=== PATIENT | female | born 1965 | race Caucasian/White ===

== ENCOUNTER 2021-11-21 18:55 | Inpatient (IN) | payer OTHER ==
[~2021-11-21] VITALS: Ht 170.2 cm; Wt 60.8 kg
--- NOTE | 2021-11-21 19:05 | NUR ---
BIBRA 89 c/o generalized weakness x 2 weeks, no BM for 1 week. Mass/wound to Left breast. Pt A/Ox4. Tolerating R/A well with no SOB. Pt Bedbound. Connected pt To POX and monitor.
[2021-11-21] MEDS ORDERED: IV NS 0.9% 1,000 ML BAG IV ONE (19:30)
--- NOTE | 2021-11-21 20:05 | NUR ---
PT RETURNED TO ER BED [address]
[2021-11-21 20:16] LABS: CALCIUM, SERUM 10.4 mg/dL (8.5-10.1); CREATININE 0.8 mg/dL (0.6-1.3); POTASSIUM 3.7 mmol/L (3.5-5.1)
[2021-11-21 20:19] LABS: BASOPHILS # (AUTO) 0.1 K/uL (0.0-0.2); BASOPHILS % (AUTO) 0.7 % (0.0-2.0); EOSINOPHILS % (AUTO) 1.7 % (0.0-6.0); HEMATOCRIT 32 % (33-45); HEMOGLOBIN 10.5 g/dL (11.5-14.8); LYMPHOCYTES % (AUTO) 21.5 % (20.0-44.0); MEAN CORPUSCULAR HGB CONC 32 g/dl (31.0-36.0); MEAN CORPUSCULAR VOLUME 89 fL (82-100); MONOCYTES # (AUTO) 0.8 K/uL (0.1-1.30); MONOCYTES % (AUTO) 8.9 % (2.0-12.0); NEUTROPHILS # (AUTO) 6.2 K/uL (1.8-8.9); NEUTROPHILS % (AUTO) 67.2 % (43.0-81.0); PLATELET COUNT (AUTO) 240 K/uL (150-450); RED BLOOD CELL COUNT(AUTO) 3.65 MIL/uL (4.0-5.2); WHITE BLOOD COUNT (AUTO) 9.2 K/uL (4.3-11.0)
[2021-11-21 20:22] LABS: BILIRUBIN,TOTAL 0.5 mg/dL (0.2-1.0); TOTAL PROTEIN, SERUM 7.6 g/dL (6.4-8.2)
--- NOTE | 2021-11-21 20:46 | NUR ---
COVID SWAB DONE AND SENT TO LAB
[2021-11-21 20:48] LABS: BILIRUBIN,URINE SMALL (NEGATIVE); COLOR,URINE YELLOW (YELLOW); LEUKOCYTE ESTERASE ,URINE NEGATIVE (NEGATIVE); NITRITE, URINE NEGATIVE (NEGATIVE); PROTEIN,URINE TRACE mg/dl (NEGATIVE); UGLUCOSE NEGATIVE (NEGATIVE); UROBILINOGEN,URINE 0.2 EU/dL (0.2)
[2021-11-21 20:50] LABS: BACTERIA,URINE Rare /HPF (None Seen); RBC,URINE 0-2 /HPF (0-2); SQUAMOUS EPITHELIAL CELL,UR Few /HPF (None Seen)
--- NOTE | 2021-11-21 21:10 | NUR ---
MIMI SIN (FRIEND) EMERGENCY CONTACT [phone]
--- NOTE | 2021-11-21 21:11 | NUR ---
PER DR NARCISA FAM FOR PT NOT HAVE F/C. PT CAN USE BEDPAN WITH ASSISTANCE
--- NOTE | 2021-11-21 21:28 | NUR ---
PANCHO PEREZ DNP AT PT'S BEDSIDE FOR EVAL WITH RN SET ILLUSTRATOR TO ASSESS LEFT BREAST MASS
[2021-11-21] MEDS ORDERED: Z GUARD REMEDY 4 OZ OINT TP PRN (22:00)
[2021-11-21 22:04] LABS: BAND % (MANUAL) 7 % (0.0-5.0); EOSINOPHILS % (MANUAL) 3 % (0-4); LYMPHOCYTES % (MANUAL) 19 % (16-48); MONOCYTES % (MANUAL) 9 % (0-11.0); NEUTROPHILS % (MANUAL) 62 (42-76)
--- NOTE | 2021-11-21 22:29 | NUR ---
BED 117-1
--- NOTE | 2021-11-21 22:39 | NUR ---
REPORT GIVEN TO SILVERIO CANALES RN FOR DILLON
--- NOTE | 2021-11-21 23:01 | NUR ---
PT TRANSFERRED TO [facility] VIA ACLS PROTOCOL. VSS. ALL BELONGINGS WITH PT. PT TOLERATED TRANSFER WELL.
--- NOTE | 2021-11-22 | NUR ---
PATIENT FROM HOME, CAME TO ER DT GENERALIZED WEAKNESS FOR 2 WEEKS PER PATIENT. PATIENT IS A/O X 4, ABLE TO MAKE NEEDS KNOWN. SPEAKS [place]. ON ROON AIR. PATIENT TOLERATING WELL SATTING 96%. IV ACCESS ON LAC G#20 ON SL, PATENT AND FLUSHING WELL. PICTURE OF LT BREAST WOUND TAKEN AND PLACED ON FILE. PATIENT IS NON-AMBULATORY, PUREWICK IN PLACE. PATIENT'S BELONGINGS INVENTORIED. ORIENTED PATIENT TO ROOM, RN, AND STATUS CONTROLLER. SAFETY MEASURES IN PLACE. BED IN LOWEST AND LOCKED POSITION, HEAD OF BED SLIGHTLY ELEVATED, SIDE RAILS UP X2, CALL LIGHT WITHIN REACH, WILL CONTINUE TO MONITOR.
--- NOTE | 2021-11-22 00:12 | NUR ---
V/S: BP 147/84, HR 99, TEMP 98.0, O2SAT 96% ON RA.
[2021-11-22] MEDS: MINERAL OIL 133 ML (PYXIS) 1 EA ENEMA RC PRN (02:24)
[2021-11-22] MEDS: IV NS 0.9% 1,000 ML IV PRN ×2 (03:15→18:19)
[2021-11-22 04:00] VITALS: BP 147/84
[2021-11-22 06:57] LABS: BASOPHILS # (AUTO) 0.1 K/uL (0.0-0.2); BASOPHILS % (AUTO) 1.1 % (0.0-2.0); EOSINOPHILS % (AUTO) 1.7 % (0.0-6.0); HEMATOCRIT 29 % (33-45); HEMOGLOBIN 9.4 g/dL (11.5-14.8); LYMPHOCYTES # (AUTO) 1.4 K/uL (0.8-4.8); LYMPHOCYTES % (AUTO) 19.7 % (20.0-44.0); MEAN CORPUSCULAR HGB CONC 32 g/dl (31.0-36.0); MEAN CORPUSCULAR VOLUME 89 fL (82-100); MONOCYTES # (AUTO) 0.7 K/uL (0.1-1.30); MONOCYTES % (AUTO) 9.6 % (2.0-12.0); NEUTROPHILS # (AUTO) 4.8 K/uL (1.8-8.9); NEUTROPHILS % (AUTO) 67.9 % (43.0-81.0); PLATELET COUNT (AUTO) 177 K/uL (150-450); RED BLOOD CELL COUNT(AUTO) 3.28 MIL/uL (4.0-5.2); WHITE BLOOD COUNT (AUTO) 7.1 K/uL (4.3-11.0)
[2021-11-22 07:08] LABS: CALCIUM, SERUM 9.7 mg/dL (8.5-10.1); CREATININE 0.7 mg/dL (0.6-1.3); MAGNESIUM 1.7 mg/dL (1.8-2.4); PHOSPHORUS 3.6 mg/dL (2.5-4.9)
--- NOTE | 2021-11-22 07:10 | NUR ---
RN NOTE RECEIVE PATIENT IN BED RESTING ALERT ORIENTED X4 VERBALLY RESPONSIVE ON ROOM AIR O2:94% IV SITE IS ON LEFT AC INTACT PATENT,IN CONTIENT BOWEL/BLADDER,SAFETY MEASURE IMPLEMENT BED IN LOW POSITON AND LOCKED,CALL LIGHT WITHIN REACH CONTINUE TO MONITOR
[2021-11-22 07:27] LABS: THYROID STIMULATING HORMONE 0.89 uIU/mL (0.358-3.74)
[2021-11-22 07:28] LABS: POTASSIUM 2.5 mmol/L (3.5-5.1)
--- NOTE | 2021-11-22 07:40 | NUR ---
PATIENT ASLEEP IN BED. A/O X 4, ABLE TO MAKE NEEDS KNOWN. ON ROON AIR. PATIENT TOLERATING WELL WITH AN O2 SAT OF 96%. IV ACCESS ON LAC G#20 INFUSING 0.9 NS AT 75ML/HR. PATIENT IS NON-AMBULATORY, PUREWICK IN PLACE. SAFETY MEASURES MAINTAINED. BED IN LOWEST AND LOCKED POSITION, HEAD OF BED SLIGHTLY ELEVATED, SIDE RAILS UP X2, CALL LIGHT WITHIN REACH, WILL ENDORSE TO NEXT NURSE ON DUTY FOR CONTINUITY OF CARE.
[2021-11-22] MEDS: PANTOPRAZOLE 40 MG TABLET.DR PO SCH (07:44)
[2021-11-22 08:00] VITALS: BP 153/78
[2021-11-22] MEDS ORDERED: POTASSIUM CHLORIDE 20 MEQ TAB.PRT.SR PO ONE ×3 (08:00→16:00)
[2021-11-22] MEDS: POLYETHYLENE GLYCOL 3350 17 GM POWD.PACK PO SCH (08:06)
[2021-11-22] MEDS: Magnesium 1GM/D5W 100ML PREMIX 100 ML IV SCH ×2 (08:06→09:16)
--- NOTE | 2021-11-22 09:37 | NUR ---
WOUND CARE CONSULT: PT PRESENTS WITH LEFT BREAST OPEN LESION, PRESENT ON ADMISSION. DR SNIDER CALLED FOR SURGICAL CONSULT. DISCUSSED SKIN PROTECTION WITH NURSING STAFF. IN AGREEMENT WITH PLAN OF CARE.
[2021-11-22] MEDS ORDERED: IBUP-1957 PO (09:44)
[2021-11-22] MEDS ORDERED: TRAM50TA2 PO (09:44)
[2021-11-22 12:00] VITALS: BP 158/88
--- NOTE | 2021-11-22 13:10 | NUR ---
13:10 attempted for US-Breast , RN and students at bedside cleaning the PT up. Per Ap there is a stat MRI, PT will be taken to MRI right after been cleaned up.
[2021-11-22 16:00] VITALS: BP 154/80
[2021-11-22] MEDS: CARISOPRODOL 350 MG TABLET PO PRN (18:04)
[2021-11-22 18:06] LABS: THYROID STIMULATING HORMONE 0.78 uIU/mL (0.358-3.74)
--- NOTE | 2021-11-22 19:17 | NUR ---
RN NOTE PATIENT REMAINS ON ALERT ORIENTED X4 ON ROM AIR, NO SOB NOT ACUTE DISTRESS NOTED ALL DUE MEDS GIVEN MD ORDERED,MRI DONE, CT DONE, KEPT CALL LIGHT WITHIN REACH ALL NEEDS MET ENDORSE NEXT COMING SHIFT FOR CONTINUATION OF CARE.
--- NOTE | 2021-11-22 19:30 | NUR ---
PATIENT AWAKE IN BED. A/O X 4, ABLE TO MAKE NEEDS KNOWN. ON ROON AIR. PATIENT TOLERATING WELL WITH AN O2 SAT OF 96%. IV ACCESS ON LAC G#20 INFUSING 0.9 NS AT 75ML/HR. PATIENT IS NON-AMBULATORY, PUREWICK IN PLACE. SAFETY MEASURES MAINTAINED. BED IN LOWEST AND LOCKED POSITION, HEAD OF BED SLIGHTLY ELEVATED, SIDE RAILS UP X2, CALL LIGHT WITHIN REACH, WILL CONTINUE PLAN OF CARE.
[2021-11-22 20:00] VITALS: BP 140/77
[2021-11-22] MEDS: TEMAZEPAM 15 MG CAPSULE PO PRN (22:18)
[2021-11-22] MEDS: ONDANSETRON HCL/PF 4 MG/2 ML VIAL IVP PRN (23:18)
[2021-11-22] MEDS: MORPHINE SULFATE INJ 2 MG/ML DISP.SYRIN IV PRN (23:18)
[2021-11-23] VITALS: BP 144/83
[2021-11-23] MEDS: MORPHINE SULFATE INJ 2 MG/ML DISP.SYRIN IV PRN (03:42)
[2021-11-23 04:00] VITALS: BP 130/73
[2021-11-23] MEDS: ONDANSETRON HCL/PF 4 MG/2 ML VIAL IVP PRN (06:04)
--- NOTE | 2021-11-23 06:52 | NUR ---
PATIENT ASLEEP IN BED. A/O X 4, ABLE TO MAKE NEEDS KNOWN. ON ROON AIR. PATIENT TOLERATING WELL WITH AN O2 SAT OF 96%. IV ACCESS ON LAC G#[address] ML REQUESTED. PATIENT IS NON-AMBULATORY, PUREWICK IN PLACE. DUE MEDS AND PRN MEDS GIVEN ORDERED AND NEEDED. SAFETY MEASURES MAINTAINED. BED IN LOWEST AND LOCKED POSITION, HEAD OF BED SLIGHTLY ELEVATED, SIDE RAILS UP X2, CALL LIGHT WITHIN REACH, WILL ENDORSE TO NEXT NURSE ON DUTY FOR CONTINUITY OF CARE.
[2021-11-23 07:02] LABS: CALCIUM, SERUM 9.5 mg/dL (8.5-10.1); CREATININE 0.6 mg/dL (0.6-1.3); POTASSIUM 3.1 mmol/L (3.5-5.1)
[2021-11-23 07:07] LABS: IMMUNOGLOBULIN A, SERUM 96 mg/dL (87-352); IMMUNOGLOBULIN G, SERUM 655 mg/dL (586-1602); IMMUNOGLOBULIN M, SERUM 71 mg/dL (26-217)
--- NOTE | 2021-11-23 07:10 | NUR ---
RN NOTE RECEIVED PATIENT IN BED RESTING ALERT ORIENTED X4 VERBALLY RESPONSIVE ON ROOM AIR, O2;94% IV SITE IS ON LEFT AC NOT WORKING,PT IS NPO FOR CT ABDOMEN WITH CONTRAST,AND BIOPSY LEFT BREAST,INCONTINENT BOWEL/BLADDER.SAFETY MEASURE IMPLEMENT BED IN LOW POSITON AND LOCKED,CALL LIGHT WITHIN REACH CONTINUE TO MONITOR.
[2021-11-23] MEDS: PANTOPRAZOLE 40 MG TABLET.DR PO SCH (07:38)
[2021-11-23 08:00] VITALS: BP 133/76
[2021-11-23] MEDS ORDERED: GADOTERATE MEGLUMINE 10 MMOL/20 ML VIAL IV ONE (08:28)
[2021-11-23] MEDS ORDERED: IOHEXOL-300 100 ML VIAL IV ONE (09:07)
[2021-11-23] MEDS ORDERED: IV NS 0.9% 250 ML IV ONE (09:07)
[2021-11-23] MEDS ORDERED: CT SWABBABLE VALVE TRANS SET 1 EA INFUS.SET MC ONE (09:07)
[2021-11-23] MEDS: POLYETHYLENE GLYCOL 3350 17 GM POWD.PACK PO SCH (09:44)
[2021-11-23] MEDS: POTASSIUM CL. PREMIX PERIPHER. 50 ML IV SCH ×4 (09:50→13:30)
--- NOTE | 2021-11-23 10:00 | NUR ---
RN NOTE START A NEW IV LINE ON LEFT FOREARM #22 G WITH GOOD BLOOD RETRUDING NO INFILTRATION,INTACT CONTINUE TO MONITOR.
[2021-11-23 10:07] LABS: *SPE A/G RATIO 0.8 (0.7-1.7); *SPE ALPHA-1-GLOBULIN 0.4 g/dL (0.0-0.4); *SPE ALPHA-2-GLOBULIN 1.3 g/dL (0.4-1.0); *SPE M-SPIKE Not Observed g/dL (Not Observed); CANCER AG, 125 26.7 U/mL (0.0-38.1)
[2021-11-23] MEDS ORDERED: SILVER NITRATE APPLICATOR 1 EA BOX TP STA (11:33)
[2021-11-23] MEDS ORDERED: LIDOCAINE 1%-EPI 1:100,000 20 ML VIAL TP STA (11:33)
[2021-11-23 12:00] VITALS: BP 132/73
[2021-11-23] MEDS: CARISOPRODOL 350 MG TABLET PO PRN (13:31)
[2021-11-23 16:00] VITALS: BP 125/80
[2021-11-23] MEDS: GABAPENTIN 100 MG CAPSULE PO SCH (18:03)
--- NOTE | 2021-11-23 18:36 | NUR ---
RN NOTE PATIENT REMAINS ALERT ORIETNED X4 VERBALLY RESPONSIVE ON ROOM AIR O2;94% ,NO SOB NOT ACUTE DISTRESS NOTED,CT OF ABDOMEN WITH CONTRAST DONE,BIOPSY OF LEFT BREAST DONE,ALL DUE MEDS GIVEN MD ORDERED KEPT CLEAN AND DRY ALL THE TIME,IV SITE IS ON LEFT FOREARM INTACT PATENT,KEPT HEAD OF THE BED ELEVATED,KEPT CALL LIGHT WITHIN REACH CONTINUE TO MONITOR.
--- NOTE | 2021-11-23 18:43 | NUR ---
RN NOTE WILL ENDORSE NEXT COMING SHIFT FOR CONTINUATION OF CARE.
--- NOTE | 2021-11-23 19:46 | NUR ---
RN OPENING NOTES: RECEIVED PATIENT IN BED AWAKE, ALERT/ ORIENTED X4 VERBALLY RESPONSIVE. ON ROOM AIR AND PT TOLERATED WELL. IV ACCESS ON RFA#22G INTACT AND PATENT. NO S/S OF INFILTRATIONS. NO C/O PAIN OR DISCOMFORT. NO ACUTE DISTRESS. INCONTINENT ON BOWEL/BLADDER. PT HAS PURE WICK WHICH DRAINING WELL. ALL SAFETY MEASURES IN PLACE. BED IN LOWEST POSITION AND LOCKED. PLACE CALL LIGHT WITHIN REACH. WILL CONTINUE TO MONITOR.
[2021-11-23 20:00] VITALS: BP 128/76
[2021-11-23] MEDS: MORPHINE SULFATE IR 15 MG TABLET PO PRN (20:38)
--- NOTE | 2021-11-23 20:52 | NUR ---
RN NOTES: PT C/O SEVERE PAIN ON BOTH LOWER LEG, MORPHINE IR 15 MG TAB GIVEN AND PT TOLERATED WELL. WILL CONTINUE TO MONITOR
[2021-11-24] VITALS: BP 111/79
[2021-11-24 04:00] VITALS: BP 122/72
[2021-11-24 06:13] LABS: CALCIUM, SERUM 9.8 mg/dL (8.5-10.1); CREATININE 0.7 mg/dL (0.6-1.3); POTASSIUM 3.6 mmol/L (3.5-5.1)
--- NOTE | 2021-11-24 06:47 | NUR ---
RN CLOSING NOTES: PATIENT IN BED AWAKE, ALERT/ ORIENTED X4 VERBALLY RESPONSIVE. ON ROOM AIR AND PT TOLERATED WELL. O2 SAT 94%. IV ACCESS ON LFA#22G INTACT AND PATENT. NO S/S OF INFILTRATIONS. NO C/O PAIN OR DISCOMFORT. NO ACUTE DISTRESS. INCONTINENT ON BOWEL/BLADDER. PT HAS PURE WICK WHICH DRAINING WELL. 1300 OUTPUT. COOPERATIVE WITH CARE. PRN MED GIVEN ORDERED. ALL SAFETY MEASURES IN PLACE. BED IN LOWEST POSITION AND LOCKED. PLACE CALL LIGHT WITHIN REACH. WILL ENDORSE TO MORNING SHIFT NURSE.
--- NOTE | 2021-11-24 07:25 | NUR ---
RN OPENING NOTE RECEIVED PATIENT IN BED AWAKE, ALERT/ ORIENTED X4 VERBALLY RESPONSIVE. ABLE TO MAKE NEEDS KNOWN.PATIENT ON ROOM AIR TOLERATING WELL ABOVE 97%. IV ACCESS ON LFA#22G INTACT AND PATENT,FLUSHING WELL. NO SIGNS OR SYMPTOMS OF INFILTRATION. NO PAIN OR DISCOMFORT. PATIENT HAS WEAKNESS ON BILATERAL LOWER EXTREMITIES. INCONTINENT ON BOWEL/BLADDER. PT HAS PURE WICK WHICH DRAINING WELL YELLOW COLOR OUTPUT. ALL SAFETY MEASURES IN PLACE.BED IN LOWEST POSITION AND LOCKED. CALL LIGHT WITHIN REACH. BEDSIDE TABLE NEXT TO PATIENT. SIDE RAILS UP X2.BED ALARM ON
[2021-11-24 08:00] VITALS: BP 123/76
[2021-11-24] MEDS: PANTOPRAZOLE 40 MG TABLET.DR PO SCH (08:40)
[2021-11-24] MEDS: GABAPENTIN 100 MG CAPSULE PO SCH ×2 (08:40→16:36)
[2021-11-24] MEDS: POLYETHYLENE GLYCOL 3350 17 GM POWD.PACK PO SCH (09:00)
[2021-11-24 12:00] VITALS: BP 124/77
--- NOTE | 2021-11-24 12:30 | NUR ---
RN NOTE EDUCATED PATIENT ON THE RISKS AND BENEFITS OF NEUORONTIN/GABAPENTIN. AGREED TO TAKE IT.
[2021-11-24 16:00] VITALS: BP 115/78
[2021-11-24 20:00] VITALS: BP 140/84
--- NOTE | 2021-11-24 20:00 | NUR ---
SHIRT HEMMER OPENING NOTE RECEIVED PT IN BED AWAKE, ALERT/ORIENTED X4 BREATHING EVEN AND UNLABORED.V/S STABLE AFEBRILE ON TELE MONITOR HR 93 SR ON THE MONITOR. ON ROOM AIR . O2 SAT 96%. IV ACCESS ON LFA#22G INTACT AND PATENT. NO S/S OF INFILTRATIONS. NO C/O PAIN OR DISCOMFORT. ABLE TO MAKE NEEDS KNOWN ALL DUE MEDS GIVEN ORDERED NO ASE NOTED . ALL SAFETY MEASURES IN PLACE. SIDE RAILS UP X2, BED IN LOWEST POSITION AND LOCKED. PLACE CALL LIGHT WITH IN REACH. WILL CONTINUE TO MONITOR PTS.
--- NOTE | 2021-11-24 20:00 | NUR ---
RN CLOSING NOTE PATIENT IN BED AWAKE, ALERT/ ORIENTED X4 .VERBALLY RESPONSIVE. ABLE TO MAKE NEEDS KNOWN. ALL NEEDS MET.ROOM AIR TOLERATING WELL ABOVE 97%. IV ACCESS ON LFA#22G INTACT AND PATENT,FLUSHING WELL. NO SIGNS OR SYMPTOMS OF INFILTRATION. NO PAIN OR DISCOMFORT. PATIENT HAS WEAKNESS ON BILATERAL LOWER EXTREMITIES. INCONTINENT ON BOWEL/BLADDER. PT HAS PURE WICK WHICH DRAINING WELL YELLOW COLOR OUTPUT. ALL SAFETY MEASURES IN PLACE.BED IN LOWEST POSITION AND LOCKED. CALL LIGHT WITHIN REACH. BEDSIDE TABLE NEXT TO PATIENT. SIDE RAILS UP X2.BED ALARM ON
[2021-11-24] MEDS: MORPHINE SULFATE IR 15 MG TABLET PO PRN (20:52)
[2021-11-25] VITALS: BP 128/75
[2021-11-25 04:00] VITALS: BP 135/86
--- NOTE | 2021-11-25 05:50 | NUR ---
television repairer closing note Pts remain in bed awake remains on r/a sating 96% no sob no distress noted v/s stable afebrile will endorse pts to day shift rn for continuity of care.
--- NOTE | 2021-11-25 07:50 | NUR ---
RN OPENING NOTE RECEIVED PATIENT IN BED AWAKE, ALERT/ ORIENTED X4 VERBALLY RESPONSIVE. ABLE TO MAKE NEEDS KNOWN.PATIENT ON ROOM AIR TOLERATING WELL ABOVE 97%. IV ACCESS ON LFA#22G INTACT AND PATENT,FLUSHING WELL. NO SIGNS OR SYMPTOMS OF INFILTRATION. NO PAIN OR DISCOMFORT. PATIENT HAS WEAKNESS ON BILATERAL LOWER EXTREMITIES. INCONTINENT ON BOWEL/BLADDER. PT HAS PURE WICK DRAINING YELLOW COLOR OUTPUT. ALL SAFETY MEASURES IN PLACE.BED IN LOWEST POSITION AND LOCKED. CALL LIGHT WITHIN REACH. BEDSIDE TABLE NEXT TO PATIENT. SIDE RAILS UP X2.BED ALARM ON
[2021-11-25 08:00] VITALS: BP 126/76
[2021-11-25] MEDS: POLYETHYLENE GLYCOL 3350 17 GM POWD.PACK PO SCH (08:08)
[2021-11-25] MEDS: CARISOPRODOL 350 MG TABLET PO PRN ×2 (08:08→17:15)
[2021-11-25] MEDS: PANTOPRAZOLE 40 MG TABLET.DR PO SCH (08:08)
[2021-11-25] MEDS: GABAPENTIN 100 MG CAPSULE PO SCH ×2 (09:00→17:00)
--- NOTE | 2021-11-25 10:43 | NUR ---
rn note patient refused Neurontin said she is not having nerve pain, gave Soma. Soma helped relieve back/leg pain
[2021-11-25] MEDS ORDERED: PAMIDRONATE 90 MG in IV NS 0.9% 500 ML IV ONE (11:00)
[2021-11-25 12:00] VITALS: BP 148/88
[2021-11-25] MEDS ORDERED: MINERAL OIL 133 ML (PYXIS) 1 EA ENEMA RC ONE (15:30)
[2021-11-25 16:00] VITALS: BP 144/89
--- NOTE | 2021-11-25 19:49 | NUR ---
RN CLOSING NOTE PATIENT IN BED AWAKE, ALERT/ ORIENTED X4. ABLE TO MAKE NEEDS KNOWN.ALL NEEDS MET. PATIENT CONSIPTATED.ADMINSTERED ENEMA. PATIENT RELIEF OF PAIN. PATIENT ON ROOM AIR TOLERATING WELL ABOVE 97%. IV ACCESS ON LFA#22G INTACT AND PATENT,FLUSHING WELL. NO SIGNS OR SYMPTOMS OF INFILTRATION. NO PAIN OR DISCOMFORT. PATIENT HAS WEAKNESS ON BILATERAL LOWER EXTREMITIES. INCONTINENT ON BOWEL/BLADDER. PT HAS PURE WICK DRAINING YELLOW COLOR OUTPUT. ALL SAFETY MEASURES IN PLACE.BED IN LOWEST POSITION AND LOCKED. CALL LIGHT WITHIN REACH. BEDSIDE TABLE NEXT TO PATIENT. SIDE RAILS UP X2.BED ALARM ON.ENDORSED TO MANAGER INSURANCE RN
[2021-11-25 20:00] VITALS: BP 159/99
--- NOTE | 2021-11-25 20:00 | NUR ---
PAPER SPOOLER OPENING NOTE RECEIVED PT IN BED AWAKE, ALERT/ORIENTED X4 BREATHING EVEN AND UNLABORED.V/S STABLE AFEBRILE ON TELE MONITOR HR [address] ON THE MONITOR. ON ROOM AIR . O2 SAT 96%. IV ACCESS ON LFA#22G INTACT AND PATENT. NO S/S OF INFILTRATIONS. NO C/O PAIN OR DISCOMFORT. ABLE TO MAKE NEEDS KNOWN ALL DUE MEDS GIVEN ORDERED NO ASE NOTED . ALL SAFETY MEASURES IN PLACE. SIDE RAILS UP X2, BED IN LOWEST POSITION AND LOCKED. PLACE CALL LIGHT WITH IN REACH. WILL CONTINUE TO MONITOR PTS.
[2021-11-25] MEDS: MORPHINE SULFATE IR 15 MG TABLET PO PRN (20:54)
--- NOTE | 2021-11-25 21:11 | NUR ---
rn note notified audio visual collections coordinator delores mendoza that patient is already getting miralax and prefers a stronger stool softener. hebert estrella ordered milk of magnesia 30 cc x 1.
--- NOTE | 2021-11-25 21:20 | NUR ---
rn note patient complaining of pain 8 out of 10 pain scale. administered morphine PRN per medication list
[2021-11-25] MEDS ORDERED: MAGNESIUM HYDROXIDE 30 ML UDC PO ONE (22:00)
--- NOTE | 2021-11-25 22:00 | NUR ---
rn note spoke with patient. patient prefers to be on pain medication less severe than morphine. recommended pain management doctor could see patient tomorrow. endorsed to low heel builder rn
[2021-11-26] VITALS: BP 145/90
[2021-11-26 04:00] VITALS: BP 130/66
[2021-11-26 06:36] LABS: BASOPHILS % (AUTO) 0.5 % (0.0-2.0); EOSINOPHILS % (AUTO) 3.2 % (0.0-6.0); HEMATOCRIT 27 % (33-45); HEMOGLOBIN 8.7 g/dL (11.5-14.8); LYMPHOCYTES # (AUTO) 1.2 K/uL (0.8-4.8); LYMPHOCYTES % (AUTO) 19.4 % (20.0-44.0); MEAN CORPUSCULAR HGB CONC 32 g/dl (31.0-36.0); MEAN CORPUSCULAR VOLUME 89 fL (82-100); MONOCYTES # (AUTO) 0.5 K/uL (0.1-1.30); MONOCYTES % (AUTO) 7.9 % (2.0-12.0); NEUTROPHILS # (AUTO) 4.1 K/uL (1.8-8.9); PLATELET COUNT (AUTO) 153 K/uL (150-450); RED BLOOD CELL COUNT(AUTO) 3.06 MIL/uL (4.0-5.2)
[2021-11-26 06:40] LABS: CALCIUM, SERUM 9.5 mg/dL (8.5-10.1); CREATININE 0.7 mg/dL (0.6-1.3); POTASSIUM 3.9 mmol/L (3.5-5.1)
[2021-11-26 08:00] VITALS: BP 149/84
--- NOTE | 2021-11-26 08:00 | NUR ---
rn notes received patient in the bed room air. no acute respiratory distress, vss, patient was complaining of pain on right arm, and right lower leg. but no pain medication at this time. due medication administered . patient tolerated breakfast well by self, assist turn and reposition q 2hr. call light within to reach. seen patient via hospitalist, and patient was asking to change pain medication. Encouraged to increase fluid intake prevent constipation. call light within to reach. will follow up.
[2021-11-26] MEDS: CARISOPRODOL 350 MG TABLET PO PRN (09:25)
--- NOTE | 2021-11-26 09:25 | NUR ---
RN NOTES ADMINISTERED SOMA [id number] FOR GENERALIZED PAIN BP 149/84,P-104. WILL FOLLOW UP.
[2021-11-26] MEDS: POLYETHYLENE GLYCOL 3350 17 GM POWD.PACK PO SCH (09:26)
[2021-11-26] MEDS: PANTOPRAZOLE 40 MG TABLET.DR PO SCH (09:26)
[2021-11-26] MEDS: GABAPENTIN 100 MG CAPSULE PO SCH ×2 (09:26→17:00)
--- NOTE | 2021-11-26 11:53 | NUR ---
rn notes administered tramadol 100ml po prn for generalized pain per patient request 6/10 per pain scale.
[2021-11-26] MEDS: TRAMADOL HCL 50 MG TABLET PO PRN ×2 (11:54→20:27)
[2021-11-26 12:00] VITALS: BP 158/85
--- NOTE | 2021-11-26 12:40 | NUR ---
rn notes patient has a fever T-100 F, called hospitalist and get new verbal order ibuprofen 400 mg po q 6 hr order taken and carried out.
--- NOTE | 2021-11-26 13:00 | NUR ---
RN NOTES RECHECKED T=99.4F , ASSIST TURN AND REPOSTION Q 2 HR. MEDICATION WERE ADMINISTERED FOR PAIN EFFECTIVE.
[2021-11-26 16:00] VITALS: BP 155/88
--- NOTE | 2021-11-26 17:55 | NUR ---
RN NOTES DRESSING CHANGED ON LEFT BREAST, DUE MEDICATION ADMINISTERED, PM CARE DONE. ASSIST TURN AND REPOSTION. T-99 F, PATIENT REFUSED PAIN MEDICATION AT THIS TIME. CALL LIGHT WITHIN TO REACH, PUREVICK WORKING, OUTPUT WAS 250 ML. CALL LIGHT WITHIN TO REACH. PATIENT EATING DINNER. ENDORSED ONCOMING NURSE DILLON.
--- NOTE | 2021-11-26 19:30 | NUR ---
RN NOTE RECEIVED PATIENT IN BED, AO X 4, IN NO S/SX OF ACUTE DISTRESS AT THIS TIME. SATURATION AT 96% ON ROOM AIR, ST ON THE MONITOR, HR IS 106. IV SITE AT LFA 22G PATENT AND FLUSHING WELL, NO S/S OF INFECTION OR INFILTRATION. SAFETY MEASURES IMPLEMENTED. PATIENT BED ALARM IS ON. HEAD OF BED ELEVATED. BED IS LOCKED, IN LOWEST POSITION AND SIDE RAILS UP. CALL LIGHT WITHIN REACH OF THE PATIENT. WILL CONTINUE TO MONITOR AND REASSESS FOR ANY CHANGES.
[2021-11-26 20:00] VITALS: BP 139/81
[2021-11-26] MEDS: IBUPROFEN 400 MG TABLET PO PRN (22:14)
[2021-11-27] VITALS: BP 130/76
[2021-11-27] MEDS: CARISOPRODOL 350 MG TABLET PO PRN (03:52)
[2021-11-27 04:00] VITALS: BP 127/87
[2021-11-27] MEDS: TRAMADOL HCL 50 MG TABLET PO PRN ×2 (06:10→21:11)
--- NOTE | 2021-11-27 07:30 | NUR ---
RN OPENING NOTE PT OBSERVED IN BED SITTING UP. PT IS ON RA TOLERATING WELL WITH NO SIGNS OF DISTRESS OR LABORED BREATHING. PT IS A/OX4 TELE MONITORED SR- ST AT THIS TIME 80S - 100S. PT HAS DIAPER AND USES PUREWICK. PT IS ON REGULAR DIET IV ACCESS L FA22G. BED IS LOCKED IN LOWEST POSITION X2 BED RAILS UP AND ALL HOSPITAL SAFETY MEASURES ARE IN PLACE. WILL CONTINUE TO MONITOR THIS SHIFT.
[2021-11-27 08:00] VITALS: BP 148/97
[2021-11-27] MEDS: POLYETHYLENE GLYCOL 3350 17 GM POWD.PACK PO SCH (08:43)
[2021-11-27] MEDS: PANTOPRAZOLE 40 MG TABLET.DR PO SCH (08:43)
[2021-11-27] MEDS: GABAPENTIN 100 MG CAPSULE PO SCH ×2 (08:43→16:05)
[2021-11-27 12:00] VITALS: BP 135/79
[2021-11-27 16:00] VITALS: BP 134/71
--- NOTE | 2021-11-27 19:22 | NUR ---
RN CLOSING NOTE PT IS IN BED SITTING UP. PT IS ON RA TOLERATING WELL WITH NO SIGNS OF DISTRESS OR LABORED BREATHING. PT IS A/OX4 TELE MONITORED SR- ST AT THIS TIME 80S - 100S. PT HAS DIAPER AND USES PUREWICK - 400ML. PT IS ON REGULAR DIET IV ACCESS L FA22G. BED IS LOCKED IN LOWEST POSITION X2 BED RAILS UP AND ALL HOSPITAL SAFETY MEASURES ARE IN PLACE. WILL ENDORSE TO LUMITE INJECTOR NURSE FOR DILLON.
[2021-11-27 20:00] VITALS: BP 146/80
[2021-11-28 04:00] VITALS: BP 120/71
[2021-11-28] MEDS: TRAMADOL HCL 50 MG TABLET PO PRN ×3 (04:56→22:17)
--- NOTE | 2021-11-28 06:56 | NUR ---
LIFE SKILLS CONSULTANT CLOSING NOTE PT IN BED, AWAKE AT THIS TIME, A/O X4, AT ROOM AIR WITH OPTIMAL O2 SAT LEVEL, NO SOB/ACUTE DISTRESS NOTED, MS STATUS, DRESSING CHANGED IN LEFT BREAST WOUND, TRAMADOL ADMINISTERED TWICE FOR PAIN LAST NIGHT, OTHERWISE NO SIGNIFICANT CHANGE IN CONDITION DURING THE NIGHT, WITH GOOD URINARY OUTPUT, ALL SAFETY MEASURES IN PLACE, CALL LIGHT WITHIN REACH AT ALL TIMES, WILL ENDORSE CONTINUITY OF CARE TO ONCOMING NURSE.
[2021-11-28 07:32] LABS: BASOPHILS % (AUTO) 0.7 % (0.0-2.0); EOSINOPHILS % (AUTO) 3.4 % (0.0-6.0); HEMATOCRIT 26 % (33-45); HEMOGLOBIN 8.6 g/dL (11.5-14.8); LYMPHOCYTES # (AUTO) 1.2 K/uL (0.8-4.8); LYMPHOCYTES % (AUTO) 25.2 % (20.0-44.0); MEAN CORPUSCULAR HGB CONC 33 g/dl (31.0-36.0); MEAN CORPUSCULAR VOLUME 89 fL (82-100); MONOCYTES # (AUTO) 0.7 K/uL (0.1-1.30); MONOCYTES % (AUTO) 14.5 % (2.0-12.0); NEUTROPHILS # (AUTO) 2.6 K/uL (1.8-8.9); NEUTROPHILS % (AUTO) 56.2 % (43.0-81.0); PLATELET COUNT (AUTO) 147 K/uL (150-450); RED BLOOD CELL COUNT(AUTO) 2.98 MIL/uL (4.0-5.2); WHITE BLOOD COUNT (AUTO) 4.6 K/uL (4.3-11.0)
[2021-11-28 07:47] LABS: ALBUMIN 2.3 g/dL (3.4-5.0); CALCIUM, SERUM 8.4 mg/dL (8.5-10.1); CREATININE 0.8 mg/dL (0.6-1.3); POTASSIUM 4.1 mmol/L (3.5-5.1)
[2021-11-28 08:00] VITALS: BP 109/67
--- NOTE | 2021-11-28 08:00 | NUR ---
RN OPENING NOTE RECEIVED PT IN BED AWAKE, ALERT/ORIENTED X3 AND VERBALLY RESPONSIVE. BREATHING EVEN AND UNLABORED. PTS ON R/A SATING 96% NO SOB NO DISTRESS NOTED . . NO S/S OF INFILTRATIONS. NO C/O PAIN OR DISCOMFORT. WITH PUREEWICK DRAINING WITH YELLOWISH URINE OUTPUT ALL DUE MEDS GIVEN ORDERED NO ASE NOTED .. ALL SAFETY MEASURES IN PLACE. SIDE RAILS UP X2, BED IN LOWEST POSITION AND LOCKED. PLACE CALL LIGHT WITH IN REACH. WILL CONTINUE TO MONITOR PTS..
[2021-11-28] MEDS: POLYETHYLENE GLYCOL 3350 17 GM POWD.PACK PO SCH (08:07)
[2021-11-28] MEDS: PANTOPRAZOLE 40 MG TABLET.DR PO SCH (08:07)
[2021-11-28] MEDS: GABAPENTIN 100 MG CAPSULE PO SCH ×2 (08:07→17:14)
[2021-11-28 08:59] LABS: BAND % (MANUAL) 5 % (0.0-5.0); BASOPHILS % (MANUAL) 0 % (0.0-2.0); EOSINOPHILS % (MANUAL) 2 % (0-4); LYMPHOCYTES % (MANUAL) 24 % (16-48); MONOCYTES % (MANUAL) 16 % (0-11.0); NEUTROPHILS % (MANUAL) 53 (42-76)
--- NOTE | 2021-11-28 09:27 | NUR ---
WOUND CARE CONSULT: PT PRESENTS WITH INTACT BLISTER TO LOWER ABDOMEN. NO ERYTHEMA OR DRAINAGE NOTED. RECOMMENDATIONS MADE FOR SKIN PROTECTION. DISCUSSED WITH NURSING STAFF. PT IS USING PUREWICK DEVICE FOR URINARY INCONTINENCE. MD IN AGREEMENT WITH PLAN OF CARE.
[2021-11-28 14:00] VITALS: BP 120/71
[2021-11-28] MEDS: ANASTROZOLE 1 MG TABLET PO SCH (19:00)
--- NOTE | 2021-11-28 19:42 | NUR ---
RN CLOSING NOTE PT IS IN BED . ON RA TOLERATING WELL WITH NO SIGNS OF DISTRESS OR LABORED BREATHING. PT IS A/OX4 TELE MONITORED SR- ST AT THIS TIME 80S - 100S. PT HAS DIAPER AND USES PUREWICK - 1200ML . PT IS ON REGULAR DIET IV ACCESS L FA22G. BED IS LOCKED IN LOWEST POSITION X2 BED RAILS UP AND ALL HOSPITAL SAFETY MEASURES ARE IN PLACE. WILL ENDORSE TO SENIOR SYSTEMS PROGRAMMER NURSE FOR DILLON.
[2021-11-28 20:00] VITALS: BP 140/79
--- NOTE | 2021-11-28 20:00 | NUR ---
MS RN NOTE PT IN BED SITTING UP. A/O X 4, NO SOB, NO DISTRESS OR DISCOMFORT NOTED. DENIES PAIN. KEPT HER DRY AND CLEAN. ALL NEEDS ATTENDED. VSS. CONTINUE TO MONITOR HIM.
[2021-11-29 04:00] VITALS: BP 113/70
[2021-11-29] MEDS ORDERED: MAGNESIUM HYDROXIDE 30 ML UDC PO PRN (04:30)
--- NOTE | 2021-11-29 06:36 | NUR ---
MS RN NOTE NO CHANGE IN CONDITION. PT IN NO DISTRESS OR DISCOMFORT NOTED. SIDE RAILS UP X 2 AND CALL LIGHT WITHIN REACH. WILL ENDORSE TO DAY SHIFT NURSE FOR CONTINUE TO CARE.
[2021-11-29 07:02] LABS: BASOPHILS % (AUTO) 0.8 % (0.0-2.0); HEMATOCRIT 27 % (33-45); HEMOGLOBIN 8.7 g/dL (11.5-14.8); LYMPHOCYTES # (AUTO) 1.3 K/uL (0.8-4.8); LYMPHOCYTES % (AUTO) 24.2 % (20.0-44.0); MEAN CORPUSCULAR HGB CONC 32 g/dl (31.0-36.0); MEAN CORPUSCULAR VOLUME 89 fL (82-100); MONOCYTES # (AUTO) 0.7 K/uL (0.1-1.30); MONOCYTES % (AUTO) 12.7 % (2.0-12.0); NEUTROPHILS # (AUTO) 3.1 K/uL (1.8-8.9); NEUTROPHILS % (AUTO) 59.3 % (43.0-81.0); PLATELET COUNT (AUTO) 176 K/uL (150-450); RED BLOOD CELL COUNT(AUTO) 3.02 MIL/uL (4.0-5.2); WHITE BLOOD COUNT (AUTO) 5.3 K/uL (4.3-11.0)
[2021-11-29 07:49] LABS: CALCIUM, SERUM 8.3 mg/dL (8.5-10.1); CREATININE 0.6 mg/dL (0.6-1.3); POTASSIUM 4.3 mmol/L (3.5-5.1)
--- NOTE | 2021-11-29 08:00 | NUR ---
MS RN NOTE PT IN BED , alert oriented A/O X 4, NO SOB, NO DISTRESS OR DISCOMFORT NOTED. DENIES PAIN. KEPT HER DRY AND CLEAN. ALL NEEDS ATTENDED. LT FA HL IN PLACE, NO SOB NOTED AT THIS TIME
[2021-11-29] MEDS: ANASTROZOLE 1 MG TABLET PO SCH (08:55)
[2021-11-29] MEDS: TRAMADOL HCL 50 MG TABLET PO PRN ×2 (08:55→16:55)
[2021-11-29] MEDS: GABAPENTIN 100 MG CAPSULE PO SCH ×2 (08:55→16:15)
[2021-11-29] MEDS: POLYETHYLENE GLYCOL 3350 17 GM POWD.PACK PO SCH (08:56)
[2021-11-29] MEDS: PANTOPRAZOLE 40 MG TABLET.DR PO SCH (09:01)
--- NOTE | 2021-11-29 10:01 | NUR ---
MS RN NOTE TRAMADOL PO GIVEN FOR PAIN . TURN REPOSITION ,SEEN BY DR GARVIN
[2021-11-29 11:47] LABS: BAND % (MANUAL) 9 % (0.0-5.0); EOSINOPHILS % (MANUAL) 2 % (0-4); LYMPHOCYTES % (MANUAL) 22 % (16-48); MONOCYTES % (MANUAL) 7 % (0-11.0); NEUTROPHILS % (MANUAL) 60 (42-76)
--- NOTE | 2021-11-29 11:52 | NUR ---
STATION BAGGAGE AGENT NOTE ROUNDS MADE , ALL NEEDS ATTENDED , CALL LIGHT WITHIN REACH, NOT IN DISTRESS
--- NOTE | 2021-11-29 15:37 | NUR ---
REFAXED THE ORDER FOR LUIS CESPEDES TO [facility] @ ,SPOKE WITH JUSTEN @ .
[2021-11-29 16:00] VITALS: BP 122/70
--- NOTE | 2021-11-29 16:51 | NUR ---
ms laure roach will be delivered at 1700 Addendum: 11/29/21 at 1651 by KLEVER ANDRADE RN turn reposing keep clean dry
--- NOTE | 2021-11-29 17:22 | NUR ---
ms rn note tramadol for general,pain give cytotechnologist/cytology supervisor at bedside instructed how to use tls brace
--- NOTE | 2021-11-29 18:30 | NUR ---
MS RN NOTE DR YOST VASCULAR DOCTOR CALLED WITH ORDER TO START NPO AFTER MIDNIGHT, START ON IVF AT 0700 TOMORROW, AND GET CONSENT FOR PORTHA CATH PLACEMENT , ORDER CARRIED OUT
--- NOTE | 2021-11-29 18:57 | NUR ---
MS RN NOTE CONSENT FOR PLACEMENT JOEL CATH OBTAINED
--- NOTE | 2021-11-29 19:45 | NUR ---
RN NOTE PT AWAKE, AOX4. DENIES ANY PAIN OR SOB AT THIS TIME. PT TO BE NPO AFTER MIDNIGHT, VERBALIZES UNDERSTANDING. ALL SAFETY MEASURES IN PLACE PER PROTOCOL. WILL CONTINUE TO MONITOR.
[2021-11-29 20:00] VITALS: BP 112/65
[2021-11-30 04:00] VITALS: BP 124/69
[2021-11-30] MEDS: TRAMADOL HCL 50 MG TABLET PO PRN ×2 (04:42→17:40)
[2021-11-30 06:02] LABS: CALCIUM, SERUM 8.7 mg/dL (8.5-10.1); CREATININE 0.6 mg/dL (0.6-1.3); POTASSIUM 4.2 mmol/L (3.5-5.1)
[2021-11-30 06:38] LABS: BASOPHILS % (AUTO) 0.8 % (0.0-2.0); EOSINOPHILS % (AUTO) 3.5 % (0.0-6.0); HEMATOCRIT 27 % (33-45); HEMOGLOBIN 8.7 g/dL (11.5-14.8); LYMPHOCYTES # (AUTO) 1.6 K/uL (0.8-4.8); LYMPHOCYTES % (AUTO) 27.7 % (20.0-44.0); MEAN CORPUSCULAR HGB CONC 32 g/dl (31.0-36.0); MEAN CORPUSCULAR VOLUME 89 fL (82-100); MONOCYTES # (AUTO) 0.7 K/uL (0.1-1.30); MONOCYTES % (AUTO) 11.6 % (2.0-12.0); NEUTROPHILS # (AUTO) 3.3 K/uL (1.8-8.9); NEUTROPHILS % (AUTO) 56.4 % (43.0-81.0); PLATELET COUNT (AUTO) 207 K/uL (150-450); RED BLOOD CELL COUNT(AUTO) 3.07 MIL/uL (4.0-5.2); WHITE BLOOD COUNT (AUTO) 5.8 K/uL (4.3-11.0)
[2021-11-30] MEDS: IV NS 0.9% 1,000 ML IV PRN (06:40)
[2021-11-30] MEDS: PANTOPRAZOLE 40 MG TABLET.DR PO SCH (07:30)
--- NOTE | 2021-11-30 07:30 | NUR ---
RN OPENING NOTE PATIENT IS IN BED AWAKE, ALERT AND ORIENTED X 4.ON ROOM AIR, BREATHING UNLABORED AND NOT IN ANY FORM OF DISTRESS. NPO OF THIS TIME IN PREPARATION FOR PERMACATH INSERTION. LEFT ANTECUBITAL LINE INTACT AND PATENT INFUSING WITH NS AT 75 ML/HR. ALL HOSPITAL SAFETY PRECAUTIONS IN PLACE. BED IS LOCKED IN LOWEST POSITION, 3 SIDE RAILS UP, CALL LIGHT WITHIN REACH. WILL CONTINUE TO MONITOR THROUGHOUT SHIFT.
--- NOTE | 2021-11-30 07:30 | NUR ---
RN NOTE PT AWAKE, DENIES ANY PAIN AT THIS TIME. TOLERATES ROOM AIR. NEW IV LINE INSERTED ON LAC # 20, GOOD BLOOD RETURN, FLUSHES WELL. OLD IV LINE ON LFA REMOVED, CATHETER INTACT. IVF NS AT 75ML/HR STARTED ORDERED. PT HAS PUREWIC, WITH 550ML URINE OUTPUT. ALL NEEDS ATTENDED. CALL LIGHT WITHIN REACH AT ALL TIMES. ENDORSED TO AM SHIFT NURSE FOR DILLON,. Addendum: 11/30/21 at 0739 by EVE LEDBETTER RN PT SCHEDULED WITH PORTACATH PLACEMENT TODAY. NPO SINCE MIDNIGHT.
[2021-11-30] MEDS: ANASTROZOLE 1 MG TABLET PO SCH (09:00)
[2021-11-30] MEDS: GABAPENTIN 100 MG CAPSULE PO SCH ×2 (09:00→17:40)
[2021-11-30] MEDS: POLYETHYLENE GLYCOL 3350 17 GM POWD.PACK PO SCH (09:00)
[2021-11-30] MEDS ORDERED: LIDOCAINE HCL/PF 1% 30 ML SDV ONE (10:19)
[2021-11-30] MEDS ORDERED: IOHEXOL 0 ML IV ONE (10:19)
[2021-11-30] MEDS ORDERED: SEVOFLURANE 250 ML BOTTLE IH ONE (10:23)
[2021-11-30] MEDS ORDERED: FENTANYL PF 100MCG/2ML AMPUL ONE (12:34)
[2021-11-30 13:43] VITALS: BP 109/66
[2021-11-30] MEDS ORDERED: HYDROMORPHONE 1 MG/1 ML DISP.SYRIN ONE (13:59)
--- NOTE | 2021-11-30 14:38 | NUR ---
RECEIVED FROM OR ,AWAKE,ALERT, VSS,NO ACUTE DISTRESS.
--- NOTE | 2021-11-30 18:57 | NUR ---
RN CLOSING NOTE PATIENT REMAINED STABLE THROUGHOUT SHIFT. ON ROOM AIR, BREATHING UNLABORED AND NOT IN ANY FORM OF DISTRESS. IV LINE IS NOW ON RIGHT WRIST, INTACT AND PATENT. PORTACATH ON LEFT CHEST WALL INTACTA ND COVERED WITH DRY DRESSING. ALL HOSPITAL SAFETY PRECAUTIONS IN PLACE. WILL ENDORSE TO POWER GENERATION TECHNICIAN NURSE.
[2021-11-30 20:00] VITALS: BP 115/70
[2021-11-30 21:11] LABS: BAND % (MANUAL) 4 % (0.0-5.0); EOSINOPHILS % (MANUAL) 1 % (0-4); LYMPHOCYTES % (MANUAL) 26 % (16-48); METAMYELOCYTES % 1 % (0-0); MONOCYTES % (MANUAL) 7 % (0-11.0); NEUTROPHILS % (MANUAL) 61 (42-76)
[2021-11-30] MEDS: ANCEF 1 GM/50 ML D5W IV SCH ×2 (21:44)
[2021-11-30] MEDS: CARISOPRODOL 350 MG TABLET PO PRN (21:50)
[2021-12-01] MEDS: IV NS 0.9% 1,000 ML IV PRN ×2 (03:57→15:30)
[2021-12-01] MEDS: TRAMADOL HCL 50 MG TABLET PO PRN ×3 (03:57→21:15)
[2021-12-01 04:00] VITALS: BP 123/68
[2021-12-01] MEDS: ANCEF 1 GM/50 ML D5W IV SCH ×2 (04:01)
--- NOTE | 2021-12-01 06:55 | NUR ---
RN CLOSING NOTE: AWAKE AND ALERT X4. UNLABORED BREATHING. SATING 97 %. RIGHT UPPER CHEST PORT A CATH WITH CLEAN DRESSING.IV ON RIGHT WRIST IN PLACE PATENT AND NO S/S OF COMPLICATIONS. HOB ELEVATED ON SEMI-FOWLERS POSITION. KEPT CLEAN AND DRY. TURNED AND REPOSITIONED WITH TWO PERSON ASSIST . BODY ALIGNMENT MAINTAINED. KEPT CLEAN AND DRY. NO A/R TO ABX. IVF ORDERED. ALL IV LINES IN PLACE PATENT AND WITH NO COMPLICATIONS. HOB ELEVATED. BILATERAL HALF SIDE RAILS UP X2. BED IN LOWEST POSITION. BED IS LOCKED. BED EXIT ALARM ON. CALL LIGHT IN REACH.
--- NOTE | 2021-12-01 07:20 | NUR ---
RN OPENING NOTE PATIENT IS IN BED AWAKE, ALERT AND ORIENTED X 4.ON ROOM AIR, BREATHING UNLABORED AND NOT IN ANY FORM OF DISTRESS. . LEFT ANTECUBITAL LINE INTACT AND PATENT INFUSING WITH NS AT 75 ML/HR. NOTED WITHRIGHT UUPER CHEST DRESSING COVERING NEW PERMA CATH,NO BLEEDING NOS/S OF INFLAMMATION OR INFECTION NOTED, DENIED PAIN BUT SHE HAS DISCOMFORT WHICH SHE CAN TOLERATE IT. ALL HOSPITAL SAFETY PRECAUTIONS IN PLACE. BED IS LOCKED IN LOWEST POSITION, 3 SIDE RAILS UP, CALL LIGHT WITHIN REACH. WILL CONTINUE TO MONITOR THROUGHOUT SHIFT.
[2021-12-01 07:43] LABS: BASOPHILS % (AUTO) 0.7 % (0.0-2.0); EOSINOPHILS % (AUTO) 3.2 % (0.0-6.0); HEMATOCRIT 27 % (33-45); HEMOGLOBIN 8.7 g/dL (11.5-14.8); LYMPHOCYTES # (AUTO) 1.6 K/uL (0.8-4.8); LYMPHOCYTES % (AUTO) 26.9 % (20.0-44.0); MEAN CORPUSCULAR HGB CONC 32 g/dl (31.0-36.0); MEAN CORPUSCULAR VOLUME 91 fL (82-100); MONOCYTES # (AUTO) 0.7 K/uL (0.1-1.30); MONOCYTES % (AUTO) 11.6 % (2.0-12.0); NEUTROPHILS # (AUTO) 3.4 K/uL (1.8-8.9); NEUTROPHILS % (AUTO) 57.6 % (43.0-81.0); PLATELET COUNT (AUTO) 210 K/uL (150-450); RED BLOOD CELL COUNT(AUTO) 2.97 MIL/uL (4.0-5.2); WHITE BLOOD COUNT (AUTO) 5.9 K/uL (4.3-11.0)
[2021-12-01] MEDS: PANTOPRAZOLE 40 MG TABLET.DR PO SCH (07:46)
[2021-12-01 08:00] VITALS: BP 123/65
[2021-12-01 08:12] LABS: ALBUMIN 2.4 g/dL (3.4-5.0); CALCIUM, SERUM 8.3 mg/dL (8.5-10.1); CREATININE 0.7 mg/dL (0.6-1.3); MAGNESIUM 2.5 mg/dL (1.8-2.4); PHOSPHORUS 2.7 mg/dL (2.5-4.9); POTASSIUM 4.5 mmol/L (3.5-5.1)
[2021-12-01] MEDS: LETROZOLE 2.5 MG TABLET PO SCH (09:05)
[2021-12-01] MEDS: GABAPENTIN 100 MG CAPSULE PO SCH ×2 (09:05→16:36)
[2021-12-01] MEDS: POLYETHYLENE GLYCOL 3350 17 GM POWD.PACK PO SCH (09:06)
[2021-12-01] MEDS ORDERED: LACTULOSE 10 G/15 ML UDC (PYXIS) PO PRN ×2 (13:00→14:00)
[2021-12-01 14:17] LABS: BAND % (MANUAL) 6 % (0.0-5.0); EOSINOPHILS % (MANUAL) 5 % (0-4); LYMPHOCYTES % (MANUAL) 35 % (16-48); METAMYELOCYTES % 3 % (0-0); MONOCYTES % (MANUAL) 7 % (0-11.0); MYELOCYTES % 4 % (0-0); NEUTROPHILS % (MANUAL) 40 (42-76)
[2021-12-01 16:00] VITALS: BP 134/77
--- NOTE | 2021-12-01 18:51 | NUR ---
MED SURGE RN CLOSING NOTES: RN CLOSING NOTE: PATIENT REMAINS IN ROOM IN NO SIGNS OF RESPIRATORY DISTRESS, ON ROOM AIR O 2 SAT 96% . SAFETY MEASURES IMPLEMENTED, BED IN LOWEST POSITION, LOCKED, SIDE RAILS UP, CALL LIGHT WITHIN REACH. ALL NEEDS AND ORDERS ADDRESSED DURING THE SHIFT. IV ACCESS MAINTAINED INTACT, SECURED AND FLUSHING WELL. ALL DUE MEDS GIVEN ORDERED & SCHEDULED ; PATIENT TOLERATED WELL. PATIENT KEPT CLEAN AND COMFORTABLE WITHIN THE SHIFT. PATIENT ENDORSED TO INCOMING SHIFT RN WITH STABLE VITAL SIGN AND FOR CONTINUITY OF CARE.
[2021-12-02] VITALS: BP 133/70
[2021-12-02] MEDS: IV NS 0.9% 1,000 ML IV PRN (04:51)
[2021-12-02] MEDS: TRAMADOL HCL 50 MG TABLET PO PRN ×3 (05:04→21:20)
--- NOTE | 2021-12-02 06:30 | NUR ---
RN CLOSING NOTE: AWAKE AND ALERT X4. UNLABORED BREATHING. SATING 97 %. RIGHT UPPER CHEST PORT A CATH WITH CLEAN DRESSING. IV ON RIGHT WRIST IN PLACE PATENT AND NO S/S OF COMPLICATIONS. HOB ELEVATED ON SEMI-FOWLERS POSITION. KEPT CLEAN AND DRY. TOPICAL TREATMENT DONE ORDERED TO ALL AFFECTED AREAS. TURNED AND REPOSITIONED WITH TWO PERSON ASSIST. BODY ALIGNMENT MAINTAINED. KEPT CLEAN AND DRY. NO A/R TO ABX. IVF ORDERED. ALL IV LINES IN PLACE PATENT AND WITH NO COMPLICATIONS. HOB ELEVATED. BILATERAL HALF SIDE RAILS UP X2. BED IN LOWEST POSITION. BED IS LOCKED. BED EXIT ALARM ON. CALL LIGHT IN REACH.
[2021-12-02 06:34] LABS: BASOPHILS % (AUTO) 0.7 % (0.0-2.0); EOSINOPHILS % (AUTO) 2.3 % (0.0-6.0); HEMATOCRIT 28 % (33-45); HEMOGLOBIN 8.8 g/dL (11.5-14.8); LYMPHOCYTES # (AUTO) 1.8 K/uL (0.8-4.8); LYMPHOCYTES % (AUTO) 26.8 % (20.0-44.0); MEAN CORPUSCULAR HGB CONC 32 g/dl (31.0-36.0); MEAN CORPUSCULAR VOLUME 90 fL (82-100); MONOCYTES # (AUTO) 0.8 K/uL (0.1-1.30); MONOCYTES % (AUTO) 12.6 % (2.0-12.0); NEUTROPHILS # (AUTO) 3.9 K/uL (1.8-8.9); NEUTROPHILS % (AUTO) 57.6 % (43.0-81.0); PLATELET COUNT (AUTO) 216 K/uL (150-450); RED BLOOD CELL COUNT(AUTO) 3.06 MIL/uL (4.0-5.2); WHITE BLOOD COUNT (AUTO) 6.7 K/uL (4.3-11.0)
--- NOTE | 2021-12-02 07:22 | NUR ---
RN OPEN NOTE PATIENT IS IN BED AWAKE, ALERT AND ORIENTED X 4.ON ROOM AIR, BREATHING UNLABORED AND NOT IN ANY FORM OF DISTRESS. LEFT ANTECUBITAL LINE INTACT AND PATENT INFUSING WITH NS AT 75 ML/HR. ALL HOSPITAL SAFETY PRECAUTIONS IN PLACE. BED IS LOCKED IN LOWEST POSITION, 3 SIDE RAILS UP, CALL LIGHT WITHIN REACH. WILL CONTINUE TO MONITOR THROUGHOUT SHIFT.
[2021-12-02] MEDS: PANTOPRAZOLE 40 MG TABLET.DR PO SCH (07:30)
[2021-12-02 08:00] VITALS: BP 141/82
[2021-12-02 08:11] LABS: CALCIUM, SERUM 8.6 mg/dL (8.5-10.1); CREATININE 0.7 mg/dL (0.6-1.3); MAGNESIUM 2.3 mg/dL (1.8-2.4); PHOSPHORUS 2.9 mg/dL (2.5-4.9); POTASSIUM 4.1 mmol/L (3.5-5.1)
--- NOTE | 2021-12-02 08:30 | NUR ---
RN OPENING NOTE RECEIVED PATIENT IN BED AWAKE, ALERT AND ORIENTED X 4.ON ROOM AIR,TOLERATING AT 97%. NOT IN ANY FORM OF PAIN OR DISCOMFORT.PT HAS RIGHT UPPER CHEST PORT A CATH WITH CLEAN DRESSING. PT HAS LT AC LINE INTACT, PATENT AND FLUSHING WELL. ALL SAFETY PRECAUTIONS IN PLACE. BED IS LOCKED IN LOWEST POSITION, 2 SIDE RAILS UP, CALL LIGHT WITHIN REACH.BEDSIDE TABLE NEXT TO PATIENT
[2021-12-02] MEDS: POLYETHYLENE GLYCOL 3350 17 GM POWD.PACK PO SCH (09:10)
[2021-12-02] MEDS: GABAPENTIN 100 MG CAPSULE PO SCH ×2 (09:10→17:19)
[2021-12-02] MEDS: LETROZOLE 2.5 MG TABLET PO SCH (09:10)
[2021-12-02 11:02] LABS: BAND % (MANUAL) 3 % (0.0-5.0); NEUTROPHILS % (MANUAL) 56 (42-76)
[2021-12-02 11:03] LABS: EOSINOPHILS % (MANUAL) 2 % (0-4); LYMPHOCYTES % (MANUAL) 31 % (16-48); METAMYELOCYTES % 2 % (0-0); MONOCYTES % (MANUAL) 5 % (0-11.0); MYELOCYTES % 1 % (0-0)
[2021-12-02 12:00] VITALS: BP 135/92
[2021-12-02] MEDS: MINERAL OIL 133 ML (PYXIS) 1 EA ENEMA RC PRN (12:22)
--- NOTE | 2021-12-02 15:00 | NUR ---
RN NOTE PT COMPLAINING OF LEG PAIN, GAVE TRAMADOL, REASSESSED, PT RELIEVED OF PAIN AND EFFECTIVE
[2021-12-02 16:00] VITALS: BP 132/82
[2021-12-02] MEDS: DOCUSATE SODIUM 100 MG CAPSULE PO SCH (16:30)
--- NOTE | 2021-12-02 19:10 | NUR ---
RN NOTE PATIENT IS IN BED AWAKE, ALERT AND ORIENTED X 4.ON ROOM AIR, BREATHING UNLABORED AND NOT IN ANY FORM OF DISTRESS.R WRIST IV LINE G 20 INTACT AND PATENT INFUSING WITH NS AT 75 ML/HR. NOTED WITH RIGHT UPER CHEST DRESSING COVERING NEW PERMA CATH,NO BLEEDING NOS/S OF INFLAMMATION OR INFECTION NOTED, DENIED PAIN BUT SHE HAS DISCOMFORT WHICH SHE CAN TOLERATE IT. ALL HOSPITAL SAFETY PRECAUTIONS IN PLACE. BED IS LOCKED IN LOWEST POSITION, 3 SIDE RAILS UP, CALL LIGHT WITHIN REACH. WILL CONTINUE TO MONITOR THROUGHOUT SHIFT.
--- NOTE | 2021-12-02 20:35 | NUR ---
RN CLOSING NOTE PT IN BED AWAKE, ALERT AND ORIENTED X 4.ON ROOM AIR,TOLERATING AT 97%. ALL NEEDS MET. NOT IN ANY FORM OF PAIN OR DISCOMFORT.PT HAS RIGHT UPPER CHEST PORT A CATH WITH CLEAN DRESSING. PT HAS LT AC LINE INTACT, PATENT AND FLUSHING WELL. ALL SAFETY PRECAUTIONS IN PLACE. BED IS LOCKED IN LOWEST POSITION, 2 SIDE RAILS UP,BED ALARM ON. CALL LIGHT WITHIN REACH.BEDSIDE TABLE NEXT TO PATIENT
[2021-12-03] VITALS: BP 106/65
[2021-12-03] MEDS: TRAMADOL HCL 50 MG TABLET PO PRN ×3 (05:26→21:01)
[2021-12-03] MEDS: IV NS 0.9% 1,000 ML IV PRN (05:31)
--- NOTE | 2021-12-03 07:10 | NUR ---
RN OPENING NOTE RECEIVED PATIENT IN BED AWAKE, ALERT AND ORIENTED X 4.ON ROOM AIR,TOLERATING AT 97%. NOT IN ANY FORM OF PAIN OR DISCOMFORT.PT HAS RIGHT UPPER CHEST PORT A CATH WITH CLEAN DRESSING. PT HAS RT WRIST LINE INTACT, PATENT AND FLUSHING WELL. ALL SAFETY PRECAUTIONS IN PLACE. BED IS LOCKED IN LOWEST POSITION, 2 SIDE RAILS UP, CALL LIGHT WITHIN REACH.BEDSIDE TABLE NEXT TO PATIENT . WILL MONITOR
[2021-12-03] MEDS: PANTOPRAZOLE 40 MG TABLET.DR PO SCH (07:38)
[2021-12-03 08:00] VITALS: BP 135/81
[2021-12-03] MEDS: LETROZOLE 2.5 MG TABLET PO SCH (09:13)
[2021-12-03] MEDS: GABAPENTIN 100 MG CAPSULE PO SCH ×2 (09:13→16:39)
[2021-12-03] MEDS: DOCUSATE SODIUM 100 MG CAPSULE PO SCH (09:13)
[2021-12-03] MEDS: POLYETHYLENE GLYCOL 3350 17 GM POWD.PACK PO SCH (09:14)
[2021-12-03 16:00] VITALS: BP 126/85
--- NOTE | 2021-12-03 16:00 | NUR ---
RN notes: NO NOTED CHANGES IN PATIENT CONDITION AT THIS TIME; PATIENT VITALS STABLE, NO SIGNS OF ACUTE RESPIRATORY DISTRESS. PATIENT CARE RENDERED.WILL CONTINUE TO MONITOR AND REASSESS FOR ANY CHANGES THROUGHOUT THE SHIFT.
--- NOTE | 2021-12-03 19:25 | NUR ---
RN CLOSING NOTES: PATIENT REMAINS IN ROOM IN NO SIGNS OF RESPIRATORY DISTRESS, ON ROOM AIR O 2 SAT 96% . SAFETY MEASURES IMPLEMENTED, BED IN LOWEST POSITION, LOCKED, SIDE RAILS UP, CALL LIGHT WITHIN REACH. ALL NEEDS AND ORDERS ADDRESSED DURING THE SHIFT. IV ACCESS MAINTAINED INTACT, SECURED AND FLUSHING WELL. ALL DUE MEDS GIVEN ORDERED & SCHEDULED continue iv ns running at 75 ml/hr TOLERATED WELL. PATIENT KEPT CLEAN AND COMFORTABLE WITHIN THE SHIFT. PATIENT ENDORSED TO INCOMING SHIFT RN WITH STABLE VITAL SIGN AND FOR CONTINUITY OF CARE.
[2021-12-03 20:00] VITALS: BP 130/85
--- NOTE | 2021-12-03 20:00 | NUR ---
RN MS OPENING NOTE RECEIVED PATIENT IN BED AWAKE, ALERT AND ORIENTED X 4.ON ROOM AIR,TOLERATING AT 97%. NOT IN ANY FORM OF PAIN OR DISCOMFORT.PT HAS RIGHT UPPER CHEST PORT A CATH WITH CLEAN DRESSING. PT HAS RT WRIST LINE INTACT, PATENT AND FLUSHING WELL. PTS REFUSES HYDRATION PTS DRINKS WATER WELL. ALL SAFETY PRECAUTIONS IN PLACE. BED IS LOCKED IN LOWEST POSITION, 2 SIDE RAILS UP, CALL LIGHT WITHIN REACH . WILL CONTINUE TO MONITOR PTS.
[2021-12-04 04:00] VITALS: BP 122/85
[2021-12-04] MEDS: TRAMADOL HCL 50 MG TABLET PO PRN ×3 (05:25→22:36)
--- NOTE | 2021-12-04 06:25 | NUR ---
RN CLOSING NOTE PT IN BED AWAKE, ALERT AND ORIENTED X 4.ON ROOM AIR,TOLERATING AT 97%. ALL NEEDS MET. NOT IN ANY FORM OF PAIN OR DISCOMFORT.PT HAS RIGHT UPPER CHEST PORT A CATH WITH CLEAN DRESSING. PT HAS LT AC G#22 LINE INTACT, PATENT AND FLUSHING WELL. ALL SAFETY PRECAUTIONS IN PLACE. BED IS LOCKED IN LOWEST POSITION, 2 SIDE RAILS UP,BED ALARM ON. CALL LIGHT WITHIN REACH .WILL ENDORSED TO RN DAY SHIFT FOR CONTINUITY OF CARE
[2021-12-04 06:47] LABS: BASOPHILS % (AUTO) 0.8 % (0.0-2.0); EOSINOPHILS % (AUTO) 2.5 % (0.0-6.0); HEMATOCRIT 27 % (33-45); HEMOGLOBIN 8.8 g/dL (11.5-14.8); LYMPHOCYTES # (AUTO) 1.6 K/uL (0.8-4.8); MEAN CORPUSCULAR HGB CONC 32 g/dl (31.0-36.0); MEAN CORPUSCULAR VOLUME 90 fL (82-100); MONOCYTES # (AUTO) 0.7 K/uL (0.1-1.30); MONOCYTES % (AUTO) 11.8 % (2.0-12.0); NEUTROPHILS # (AUTO) 3.1 K/uL (1.8-8.9); NEUTROPHILS % (AUTO) 55.9 % (43.0-81.0); PLATELET COUNT (AUTO) 221 K/uL (150-450); RED BLOOD CELL COUNT(AUTO) 3.03 MIL/uL (4.0-5.2); WHITE BLOOD COUNT (AUTO) 5.5 K/uL (4.3-11.0)
[2021-12-04 07:14] LABS: CALCIUM, SERUM 8.7 mg/dL (8.5-10.1); CREATININE 0.8 mg/dL (0.6-1.3); MAGNESIUM 2.3 mg/dL (1.8-2.4); PHOSPHORUS 4.3 mg/dL (2.5-4.9); POTASSIUM 4.2 mmol/L (3.5-5.1)
--- NOTE | 2021-12-04 07:20 | NUR ---
RN OPENING NOTE PT IN BED AWAKE, ALERT AND ORIENTED X 4.VERBALLY RESPONSIVE ON ROOM AIR AT 95%. NOT IN ANY FORM OF PAIN OR DISCOMFORT.PT HAS RIGHT UPPER CHEST PORT A CATH WITH CLEAN DRESSING. PT HAS R IV LINE INTACT, PATENT AND FLUSHING WELL. ALL SAFETY PRECAUTIONS IN PLACE. BED IS LOCKED IN LOWEST POSITION, 2 SIDE RAILS UP, CALL LIGHT WITHIN REACH.BEDSIDE TABLE NEXT TO PATIENT.
[2021-12-04 08:00] VITALS: BP 116/72
[2021-12-04] MEDS: PANTOPRAZOLE 40 MG TABLET.DR PO SCH (08:35)
[2021-12-04] MEDS: GABAPENTIN 100 MG CAPSULE PO SCH ×2 (08:36→16:18)
[2021-12-04] MEDS: LETROZOLE 2.5 MG TABLET PO SCH (08:36)
[2021-12-04] MEDS: POLYETHYLENE GLYCOL 3350 17 GM POWD.PACK PO SCH (08:42)
[2021-12-04] MEDS: DOCUSATE SODIUM 100 MG CAPSULE PO SCH (08:42)
--- NOTE | 2021-12-04 09:00 | NUR ---
RN NOTE PT REQUESTED MIRALAX AND COLACE TO BE HELD DUE TO LARGE BOWEL MOVEMENT YESTERDAY 12/03/21
[2021-12-04 16:00] VITALS: BP 131/80
--- NOTE | 2021-12-04 19:30 | NUR ---
MS RN OPENING NOTE RECEIVED PT IN BED AWAKE, AX/O X 4.ON RA, TOLERATING WELL, NO S/S OF ACUTE DISTRESS, NOT IN ANY FORM OF PAIN OR DISCOMFORT.PT HAS RIGHT UPPER CHEST PORT A CATH WITH CLEAN DRESSING. PT HAS RHAND, IV LINE INTACT, PATENT AND FLUSHING WELL, SLIGHTLY LEAKING. PT DIDNT WANT A NEW IV SINCE NO FLUIDS. PT ABLE TO MAKE NEEDS KNOWN. ALL SAFETY MEASURES IN PLACE. BED IN LOWEST POSITION AND LOCKED. BED RAILS UP X2, CALL LIGHT WITH IN REACH BED ALARM ON. WILL CONTINUE TO MONITOR THROUGHOUT SHIFT.
--- NOTE | 2021-12-04 19:59 | NUR ---
RN ClOSING NOTE PT IN BED AWAKE, ALERT AND ORIENTED X 4.VERBALLY RESPONSIVE ON ROOM AIR AT 94%. ABLE TO MAKE NEEDS KNOWN. NOT IN ANY FORM OF PAIN OR DISCOMFORT.PT HAS RIGHT UPPER CHEST PORT A CATH WITH CLEAN DRESSING. PT HAS WEAKNESS AND LEGS ARE CONTRACTED. PT HAS R IV LINE INTACT, PATENT AND FLUSHING WELL. ALL SAFETY PRECAUTIONS IN PLACE. BED IS LOCKED IN LOWEST POSITION, 2 SIDE RAILS UP, CALL LIGHT WITHIN REACH.BEDSIDE TABLE NEXT TO PATIENT.
[2021-12-04 20:00] VITALS: BP 126/71
[2021-12-05 04:00] VITALS: BP 129/73
--- NOTE | 2021-12-05 07:02 | NUR ---
MS RN CLOSING NOTE PT IN BED AWAKE, AX/O X 4.ON RA, TOLERATING WELL, NO S/S OF ACUTE DISTRESS, NOT IN ANY FORM OF PAIN OR DISCOMFORT.PT HAS RIGHT UPPER CHEST PORT A CATH WITH CLEAN DRESSING. PT HAS RHAND, IV LINE INTACT, PATENT AND FLUSHING WELL, SLIGHTLY LEAKING. PT DIDNT WANT A NEW IV SINCE NO FLUIDS. PT ABLE TO MAKE NEEDS KNOWN. ALL DUE MEDS GIVEN. ALL SAFETY MEASURES IN PLACE. BED IN LOWEST POSITION AND LOCKED. BED RAILS UP X2, CALL LIGHT WITH IN REACH BED ALARM ON. WILL ENDORSE TO MORNING SHIFT.
[2021-12-05 08:00] VITALS: BP 114/71
[2021-12-05] MEDS: GABAPENTIN 100 MG CAPSULE PO SCH ×2 (08:11→16:18)
[2021-12-05] MEDS: PANTOPRAZOLE 40 MG TABLET.DR PO SCH (08:11)
[2021-12-05] MEDS: LETROZOLE 2.5 MG TABLET PO SCH (08:11)
[2021-12-05] MEDS: DOCUSATE SODIUM 100 MG CAPSULE PO SCH (08:12)
[2021-12-05] MEDS: POLYETHYLENE GLYCOL 3350 17 GM POWD.PACK PO SCH (08:12)
[2021-12-05] MEDS: TRAMADOL HCL 50 MG TABLET PO PRN ×2 (08:34→18:03)
[2021-12-05 16:00] VITALS: BP 131/87
--- NOTE | 2021-12-05 19:15 | NUR ---
MS RN OPENING NOTE RECEIVED PT IN BED AWAKE, AX/O X 4.ON RA, TOLERATING WELL, NO S/S OF ACUTE DISTRESS, NOT IN ANY FORM OF PAIN OR DISCOMFORT.PT HAS RIGHT UPPER CHEST PORT A CATH WITH CLEAN DRESSING. PT HAS RHAND, IV LINE INTACT, PATENT AND FLUSHING WELL, SLIGHTLY LEAKING. PT DIDN'T WANT A NEW IV SINCE NO FLUIDS, AND NO IV MEDS. WILL ASK AGAIN THROUGHOUT SHIFT. PT ABLE TO MAKE NEEDS KNOWN. ALL SAFETY MEASURES IN PLACE. BED IN LOWEST POSITION AND LOCKED. BED RAILS UP X2, CALL LIGHT WITH IN REACH BED ALARM ON. WILL CONTINUE TO MONITOR THROUGHOUT SHIFT.
--- NOTE | 2021-12-05 19:39 | NUR ---
RN CLOSING NOTE PT IN BED AWAKE, ALERT AND ORIENTED X 4. ALL NEEDS MET.ROOM AIR AT 94%. NOT IN ANY FORM OF PAIN OR DISCOMFORT.PT HAS RIGHT UPPER CHEST PORT A CATH WITH CLEAN DRESSING. PT HAS R IV LINE INTACT, PATENT AND FLUSHING WELL. ALL SAFETY PRECAUTIONS IN PLACE. BED IS LOCKED IN LOWEST POSITION, 2 SIDE RAILS UP, CALL LIGHT WITHIN REACH.BEDSIDE TABLE NEXT TO PATIENT.
[2021-12-05 20:00] VITALS: BP 131/76
[2021-12-06] MEDS: TRAMADOL HCL 50 MG TABLET PO PRN ×3 (03:17→20:31)
[2021-12-06 04:00] VITALS: BP 116/71
--- NOTE | 2021-12-06 06:58 | NUR ---
MS RN CLOSING NOTE PT IN BED AWAKE, AX/O X 4.ON RA, TOLERATING WELL, NO S/S OF ACUTE DISTRESS, NOT IN ANY FORM OF PAIN OR DISCOMFORT.PT HAS RIGHT UPPER CHEST PORT A CATH WITH CLEAN DRESSING. PT HAS RHAND, IV LINE INTACT, PATENT AND FLUSHING WELL, SLIGHTLY LEAKING PUT INTACT. PT ABLE TO MAKE NEEDS KNOWN. ALL DUE MEDS GIVEN. ALL SAFETY MEASURES IN PLACE. BED IN LOWEST POSITION AND LOCKED. BED RAILS UP X2, CALL LIGHT WITH IN REACH BED ALARM ON. WILL ENDORSE TO MORNING SHIFT.
[2021-12-06] MEDS: PANTOPRAZOLE 40 MG TABLET.DR PO SCH (07:34)
--- NOTE | 2021-12-06 08:00 | NUR ---
MS RN NOTE PT IN BED AWAKE, AX/O X 4.ON RA, NO SB NOTED AT THIS TIME, NO S/S OF ACUTE DISTRESS, NOT IN ANY FORM OF PAIN OR DISCOMFORT.AT THIS TIME,PT HAS RIGHT UPPER CHEST PORT A CATH WITH CLEAN DRESSING. PT HAS RT HAND, IV LINE INTACT, PATENT AND FLUSHING WELL, PT ABLE TO MAKE NEEDS KNOWN. ALL SAFETY MEASURES IN PLACE. BED IN LOWEST POSITION AND LOCKED. BED RAILS UP X2, CALL LIGHT , SAFETY MEASURE PROVIDED, CALL LIGHT WITHIN REACH
[2021-12-06] MEDS: POLYETHYLENE GLYCOL 3350 17 GM POWD.PACK PO SCH (08:08)
[2021-12-06] MEDS: GABAPENTIN 100 MG CAPSULE PO SCH ×2 (08:09→16:08)
[2021-12-06] MEDS: DOCUSATE SODIUM 100 MG CAPSULE PO SCH (08:09)
[2021-12-06 08:49] VITALS: BP 119/68
[2021-12-06] MEDS: LETROZOLE 2.5 MG TABLET PO SCH (08:53)
--- NOTE | 2021-12-06 11:00 | NUR ---
MS RN NOTE PT AT BEDSIDE ABLE TO SIT AT EDGE OF BED ,WILL MONITOR CLOSELY
--- NOTE | 2021-12-06 13:14 | NUR ---
ms rn note seen by Amelia mendoza rn surg tech ,updated patient condition
[2021-12-06 14:00] VITALS: BP 97/65
--- NOTE | 2021-12-06 15:12 | NUR ---
ms rn alpesh martinez rn motion picture projectionist apprentice at bedside stated gentle exeresis with pt no heavy lifting
[2021-12-06 16:00] VITALS: BP 91/67
--- NOTE | 2021-12-06 17:10 | NUR ---
RN NOTES LEFT BREAST WOUND TREATMENT RENDERED ORDERED, NO DISCHARGE NOTED, NO BLEEDING, WILL CONTINUE PLAN OF CARE FOR THE PATIENT.
--- NOTE | 2021-12-06 18:26 | NUR ---
MS RN NOTE PATIENT IN BED, ALL NEEDS ATTENDED ,HAVING DINNER , ABLE TO EAT SELF ,WITH PURRE INGACK ABLE TO URINATE 900 ML OF YELLOW CLEAR URINE , , ON RA ,NO SOB NOTED AT THIS TIME, RT HAND HL INTACT , RT CHEST WALL PORTHA CATH IN PLACE ,DRESSING CHANGED , KEEP AFFECTED ARE CLEAN AND DRY, BED IN LOWEST AND LOCKED POSITION , CALL LIGHT WITHIN REACH ,WILL CONT TO MONITOR, WANTS TO CHANGE BED TO 117-1 CHARGE NURSE NOTIFIED
[2021-12-06 20:00] VITALS: BP 102/63
--- NOTE | 2021-12-06 20:00 | NUR ---
MS RN NOTE PT IN BED AWAKE. A/O X 4, NO SOB, NO DISTRESS OR DISCOMFORT NOTED. DENIES PAIN AT THIS TIME. KEPT HER DRY AND CLEAN. SIDE RAILS UP X 3 AND CALL LIGHT WITHIN REACH. CONTINUE TO MONITOR HER.
--- NOTE | 2021-12-06 20:31 | NUR ---
MS RN NOTE PT C/O PAIN ALL OVER 7/10 DULL ACHING. TRAMADOL 100 MG PO GIVEN. CONTINUE TO MONITOR HER.
[2021-12-07 04:00] VITALS: BP 115/68
[2021-12-07] MEDS: TRAMADOL HCL 50 MG TABLET PO PRN ×3 (06:04→22:26)
[2021-12-07 06:32] LABS: BASOPHILS # (AUTO) 0.1 K/uL (0.0-0.2); EOSINOPHILS % (AUTO) 2.1 % (0.0-6.0); HEMATOCRIT 31 % (33-45); HEMOGLOBIN 9.6 g/dL (11.5-14.8); LYMPHOCYTES # (AUTO) 1.7 K/uL (0.8-4.8); LYMPHOCYTES % (AUTO) 28.8 % (20.0-44.0); MEAN CORPUSCULAR HGB CONC 31 g/dl (31.0-36.0); MEAN CORPUSCULAR VOLUME 91 fL (82-100); MONOCYTES # (AUTO) 0.8 K/uL (0.1-1.30); MONOCYTES % (AUTO) 13.9 % (2.0-12.0); NEUTROPHILS # (AUTO) 3.1 K/uL (1.8-8.9); NEUTROPHILS % (AUTO) 54.2 % (43.0-81.0); PLATELET COUNT (AUTO) 175 K/uL (150-450); RED BLOOD CELL COUNT(AUTO) 3.39 MIL/uL (4.0-5.2); WHITE BLOOD COUNT (AUTO) 5.8 K/uL (4.3-11.0)
--- NOTE | 2021-12-07 06:39 | NUR ---
NURSE MIDWIFE NOTE PT IN BED AWAKE. NO DISTRESS OR DISCOMFORT NOTED, NO S/S OF PAIN NOTED. KEPT HER DRY AND CLEAN. SIDE RAILS UP X 2 WILL ENDORSE TO DAY SHIFT NURSE FOR CONTINUE TO CARE.
--- NOTE | 2021-12-07 07:20 | NUR ---
RN NOTE RECEIVED PATIENT IN BED RESTING ALERT ORIENTEDX4 VERBALLY RESPONSIVE,ON ROOM AIR,O2:96% IV SITE IS ON RIGHT PORAL CATH AND RIGHT HAND INTACT,SAFETY MEASURE IMPLEMENT BED IN LOW POSTIION AND LOCKED,CALL LIGHT WITHIN REACH CONTINUE TO MONITOR.
[2021-12-07] MEDS: PANTOPRAZOLE 40 MG TABLET.DR PO SCH (07:38)
[2021-12-07] MEDS: DOCUSATE SODIUM 100 MG CAPSULE PO SCH ×3 (08:27→16:33)
[2021-12-07] MEDS: GABAPENTIN 100 MG CAPSULE PO SCH ×2 (08:27→16:30)
[2021-12-07] MEDS: POLYETHYLENE GLYCOL 3350 17 GM POWD.PACK PO SCH (08:27)
[2021-12-07] MEDS: LETROZOLE 2.5 MG TABLET PO SCH (09:07)
[2021-12-07 12:00] VITALS: BP 124/82
--- NOTE | 2021-12-07 14:13 | NUR ---
RN NOTE TRAMADOL 100 MG GIVEN FOR PAIN 08/21 CONTINUE TO MONITOR.
[2021-12-07 16:47] LABS: BAND % (MANUAL) 2 % (0.0-5.0); EOSINOPHILS % (MANUAL) 2 % (0-4); LYMPHOCYTES % (MANUAL) 29 % (16-48); METAMYELOCYTES % 3 % (0-0); MONOCYTES % (MANUAL) 8 % (0-11.0); NEUTROPHILS % (MANUAL) 56 (42-76)
--- NOTE | 2021-12-07 18:26 | NUR ---
RN NOTE PATIENT REMAINS ALERT ORIENTED X4 VERBALLY RESPONSIVE ON ROOM AIR O2:96% NO SOB NOT ACUTE DISTRESS NOTED,ALL DUE MEDS GIVEN MD ORDERED REPOSITIONED EVERY 2 HOURS PAIN MEDS GIVEN FOR PAIN MANAGEMENT,ELEVATED HEAD OF THE BED ALL THE TIME,KEPT CLEAN AND DRY ALL THE TIME,ALL NEEDS MET.ENDORSE NEXT COMING SHIFT FOR CONTINUATION OF CARE.
[2021-12-07 20:00] VITALS: BP 115/69
--- NOTE | 2021-12-07 20:00 | NUR ---
MS RN NOTE PT IN BED AWAKE. A/O X 4, NO SOB, NO DISTRESS OR DISCOMFORT NOTED. DENIES PAIN AT THIS TIME. RT HAND SL INTACT AND PATENT. ALL NEEDS ATTENDED. VSS. WOUND DRESSINGS I/C/D. ALL NEEDS ATTENDED. CONTINUE TO MONITOR HER.
[2021-12-08] MEDS: TRAMADOL HCL 50 MG TABLET PO PRN ×3 (06:42→23:40)
--- NOTE | 2021-12-08 07:30 | NUR ---
MS ROJAS AM NOTE RECEIVED PATIENT IN BED RESTING, AWAKE, ALERT ORIENTEDX4 VERBALLY RESPONSIVE,ON ROOM AIR,O2:96% DENIES PAIN AT THIS TIME. IV SITE IS ON RIGHT JOEL CATH AND RIGHT HAND BOTH FLUSHES WELL. BOTH SITES CLEAR. REGULAR DIET. MAXIMUM ASSIST. WILL PERFORM PRESCRIBED WOUND TREATMENT. SAFETY MEASURE IN PLACE. BED IN LOW AND LOCKED,CALL LIGHT WITHIN REACH CONTINUE TO MONITOR.
[2021-12-08 08:00] VITALS: BP 122/78
[2021-12-08] MEDS: POLYETHYLENE GLYCOL 3350 17 GM POWD.PACK PO SCH (08:33)
[2021-12-08] MEDS: LETROZOLE 2.5 MG TABLET PO SCH (08:33)
[2021-12-08] MEDS: PANTOPRAZOLE 40 MG TABLET.DR PO SCH (08:33)
[2021-12-08] MEDS: DOCUSATE SODIUM 100 MG CAPSULE PO SCH (08:34)
[2021-12-08] MEDS: GABAPENTIN 100 MG CAPSULE PO SCH ×2 (08:34→17:37)
--- NOTE | 2021-12-08 09:30 | NUR ---
RN NOTES DUE MEDS GIVEN
[2021-12-08 16:00] VITALS: BP 111/68
--- NOTE | 2021-12-08 18:51 | NUR ---
MS RN CLOSING NOTE PATIENT IN BED RESTING, AWAKE, ALERT ORIENTEDX4 VERBALLY RESPONSIVE,ON ROOM AIR,O2:96% DENIES PAIN AT THIS TIME. IV SITE IS ON RIGHT JOEL CATH AND RIGHT HAND BOTH FLUSHES WELL. BOTH SITES CLEAR. REGULAR DIET. MAXIMUM ASSIST. PERFORMED PRESCRIBED WOUND TREATMENT. PM CARE DONE. ASSISTED ON TURNING AND REPOSITIONING Q [address]RS[address] S[address]ETY MEASURE IN PLACE. BED IN LOW AND LOCKED,CALL LIGHT WITHIN REACH . ALL NEEDS MET. WILL ENDORSE TO NEXT SHIFT FOR DILLON
--- NOTE | 2021-12-08 19:45 | NUR ---
RN NOTE RECEIVED PT AWAKE, AOX 4. DENIES ANY PAIN OR SOB. NOT IN ANY DISTRESS. ALL SAFETY MEASURES IN PLACE, CALL LIGHT WITHIN REACH. WILL CONTINUE TO MONITOR.
[2021-12-08 20:00] VITALS: BP 116/70
[2021-12-09 04:00] VITALS: BP 107/70
--- NOTE | 2021-12-09 06:37 | NUR ---
RN NOTE PT SLEEPING, AROUSES EASILY. DENIES ANY PAIN OR SOB. NOT IN ANY DISTRESS, TOLERATES ROOM AIR. WOUND TREATMENT DONE ON LEFT BREAST. CALL LIGHT WITHIN REACH AT ALL TIMES, NEEDS ATTENDED. WILL ENDORSE TO AM SHIFT NURSE FOR DILLON.
--- NOTE | 2021-12-09 07:32 | NUR ---
RN OPEN NOTE RECEIVED PATIENT IN BED RESTING, AWAKE, ALERT ORIENTEDX4 VERBALLY RESPONSIVE,ON ROOM AIR,O2:96% DENIES PAIN AT THIS TIME. IV SITE IS ON RIGHT JOEL CATH AND RIGHT HAND BOTH FLUSHES WELL. BOTH SITES CLEAR. REGULAR DIET. MAXIMUM ASSIST. WILL PERFORM PRESCRIBED WOUND TREATMENT. SAFETY MEASURE IN PLACE. BED IN LOW AND LOCKED,CALL LIGHT WITHIN REACH CONTINUE TO MONITOR. WILL CONTINUE TO FALLOW POC
[2021-12-09] MEDS: PANTOPRAZOLE 40 MG TABLET.DR PO SCH (07:46)
[2021-12-09] MEDS: DOCUSATE SODIUM 100 MG CAPSULE PO SCH (08:18)
[2021-12-09] MEDS: GABAPENTIN 100 MG CAPSULE PO SCH ×2 (08:18→16:23)
[2021-12-09] MEDS: POLYETHYLENE GLYCOL 3350 17 GM POWD.PACK PO SCH (08:18)
[2021-12-09] MEDS: LETROZOLE 2.5 MG TABLET PO SCH (08:19)
[2021-12-09] MEDS: TRAMADOL HCL 50 MG TABLET PO PRN ×2 (08:29→16:23)
--- NOTE | 2021-12-09 08:36 | NUR ---
RN NOTE REPORT WAS GIVEN TO CRYSTAL FLORES , FOR FALLOW UP ON PATIENT FAMILIANACKARLDEBORA FOR THE REST OF THE SHIFT
[2021-12-09 16:00] VITALS: BP 107/70
--- NOTE | 2021-12-09 19:10 | NUR ---
N NOTE RECEIVED PT AWAKE, AOX 4. DENIES ANY PAIN OR SOB. NOT IN ANY DISTRESS. ALL SAFETY MEASURES IN PLACE, CALL LIGHT WITHIN REACH. WILL CONTINUE TO MONITOR.
--- NOTE | 2021-12-09 19:24 | NUR ---
MS RN NOTE PATIENT IN BED, ALL NEEDS ATTENDED , ON RA ,NO SOB NOTED AT THIS TIME, RT HAND HL INTACT , RT CHEST WALL JOEL CATH IN PLACE ,DRESSING CHANGED , KEEP AFFECTED ARE CLEAN AND DRY, BED IN LOWEST AND LOCKED POSITION , CALL LIGHT WITHIN REACH
[2021-12-10] VITALS: BP 114/76
[2021-12-10] MEDS: TRAMADOL HCL 50 MG TABLET PO PRN ×3 (05:03→21:13)
--- NOTE | 2021-12-10 07:15 | NUR ---
MS RN OPEN NOTE RECEIVED PATIENT IN BED RESTING, AWAKE, ALERT ORIENTEDX4 VERBALLY RESPONSIVE,ON ROOM AIR,O2:96% DENIES PAIN AT THIS TIME. IV SITE IS ON RIGHT JOEL CATH AND RIGHT HAND 22 G BOTH FLUSHES WELL. BOTH SITES CLEAR. REGULAR DIET. MAXIMUM ASSIST. PATIENT HAS OPEN WOUND OF THE LEFT BREAST SAFETY MEASURE IN PLACE. BED IN LOW AND LOCKED,CALL LIGHT WITHIN REACH CONTINUE TO MONITOR AND FALLOW POC.
[2021-12-10] MEDS: PANTOPRAZOLE 40 MG TABLET.DR PO SCH (07:32)
[2021-12-10 07:42] LABS: BASOPHILS # (AUTO) 0.1 K/uL (0.0-0.2); HEMATOCRIT 30 % (33-45); HEMOGLOBIN 9.4 g/dL (11.5-14.8); LYMPHOCYTES # (AUTO) 1.7 K/uL (0.8-4.8); LYMPHOCYTES % (AUTO) 30.3 % (20.0-44.0); MEAN CORPUSCULAR HGB CONC 32 g/dl (31.0-36.0); MEAN CORPUSCULAR VOLUME 90 fL (82-100); MONOCYTES # (AUTO) 0.8 K/uL (0.1-1.30); MONOCYTES % (AUTO) 13.8 % (2.0-12.0); NEUTROPHILS % (AUTO) 51.9 % (43.0-81.0); PLATELET COUNT (AUTO) 154 K/uL (150-450); WHITE BLOOD COUNT (AUTO) 5.7 K/uL (4.3-11.0)
[2021-12-10 08:00] VITALS: BP 114/71
[2021-12-10] MEDS: POLYETHYLENE GLYCOL 3350 17 GM POWD.PACK PO SCH (08:22)
[2021-12-10] MEDS: GABAPENTIN 100 MG CAPSULE PO SCH ×2 (08:22→16:15)
[2021-12-10] MEDS: LETROZOLE 2.5 MG TABLET PO SCH (08:22)
[2021-12-10] MEDS: DOCUSATE SODIUM 100 MG CAPSULE PO SCH (08:22)
[2021-12-10 08:23] LABS: ALBUMIN 2.6 g/dL (3.4-5.0); BILIRUBIN,TOTAL 0.3 mg/dL (0.2-1.0); CREATININE 0.7 mg/dL (0.6-1.3); POTASSIUM 4.5 mmol/L (3.5-5.1); TOTAL PROTEIN, SERUM 6.3 g/dL (6.4-8.2)
[2021-12-10 16:12] VITALS: BP 108/59
--- NOTE | 2021-12-10 18:32 | NUR ---
MS RN CLOSING NOTE PATIENT IN BED RESTING, AWAKE, ALERT ORIENTEDX4 VERBALLY RESPONSIVE,ON ROOM AIR,O2:97% DENIES PAIN AT THIS TIME. IV SITE IS ON RIGHT JOEL CATH AND RIGHT HAND 22 G BOTH FLUSHES WELL. BOTH SITES CLEAR. REGULAR DIET. MAXIMUM ASSIST. PATIENT HAS OPEN WOUND OF THE LEFT BREAST SAFETY MEASURE IN PLACE. BED IN LOW AND LOCKED,CALL LIGHT WITHIN REACH . ALL MEDICATIONS WERE ADMINISTERED , ALL NEEDS WERE MET .WILL ENDORSE PRICING SUPERVISOR NURSE TO FALLOW POC
--- NOTE | 2021-12-10 19:48 | NUR ---
RN OPENING NOTES RECEIVED PT IN BED AWAKE, TALKING ON PHONE. AOx4, ABLE TO MAKE NEEDS KNOWN. ON RA AND TOLERATING WELL. NO SOB NOTED. NO S/SX OF RESPIRATORY DISTRESS NOTED. IV ACCESS IN R HAND #22G AND R CHEST WALL PORTACATH. IV IS INTACT, PATENT, AND FLUSHING WELL. SAFETY PRECAUTIONS IN PLACE: BED IN LOWEST, LOCKED POSITION, SIDERAILS UPx2, AND BRAKES ON. TABLE AND CALL LIGHT WITHIN REACH. ALL NEEDS MET AT THIS TIME.
[2021-12-10 20:00] VITALS: BP 115/71
--- NOTE | 2021-12-10 21:14 | NUR ---
RN NOTES ADMINISTERED TRAMADOL FOR PAIN PER MD ORDER. VS WNL.
[2021-12-11 04:00] VITALS: BP 96/66
[2021-12-11] MEDS: TRAMADOL HCL 50 MG TABLET PO PRN ×3 (05:55→22:51)
--- NOTE | 2021-12-11 05:55 | NUR ---
RN NOTES ADMINISTERED TRAMADOL FOR PAIN PER MD ORDER. VS WNL.
--- NOTE | 2021-12-11 06:39 | NUR ---
RN CLOSING NOTES PT IN BED ASLEEP, AWAKENS TO VERBAL STIMULI. AOx4, ABLE TO MAKE NEEDS KNOWN. ON RA AND TOLERATING WELL. NO SOB NOTED. NO S/SX OF RESPIRATORY DISTRESS NOTED. IV ACCESS IN R HAND #22G AND R CHEST WALL PORTACATH. IV IS INTACT, PATENT, AND FLUSHING WELL. ALL ORDERS CARRIED OUT. ALL NEEDS MET. PT KEPT CLEAN AND DRY. SAFETY PRECAUTIONS IN PLACE: BED IN LOWEST, LOCKED POSITION, SIDERAILS UPx2, AND BRAKES ON. TABLE AND CALL LIGHT WITHIN REACH. WILL ENDORSE TO ONCOMING SHIFT FOR DILLON.
[2021-12-11] MEDS: PANTOPRAZOLE 40 MG TABLET.DR PO SCH (07:24)
--- NOTE | 2021-12-11 07:30 | NUR ---
MS RN OPENING NOTES RECEIVED PT IN BED AWAKE, PATIENT IS AOx4, ABLE TO MAKE NEEDS KNOWN IN IRISH. ON RA AND TOLERATING WELL. NO SOB NOTED. NO RESPIRATORY DISTRESS NOTED. IV ACCESS IN R HAND #22G AND R CHEST WALL PORTACATH. IV IS INTACT, PATENT, AND FLUSHING WELL. ALL SAFETY PRECAUTIONS IN PLACE: BED IN LOWEST, LOCKED POSITION, SIDERAILS UPx2, AND BRAKES ON. TABLE AND CALL LIGHT WITHIN REACH. WILL CONTINUE TO MONITOR CLOSELY.
[2021-12-11 08:00] VITALS: BP 116/71
[2021-12-11] MEDS: POLYETHYLENE GLYCOL 3350 17 GM POWD.PACK PO SCH (08:34)
[2021-12-11] MEDS: DOCUSATE SODIUM 100 MG CAPSULE PO SCH (08:34)
[2021-12-11] MEDS: LETROZOLE 2.5 MG TABLET PO SCH (08:34)
[2021-12-11] MEDS: GABAPENTIN 100 MG CAPSULE PO SCH ×2 (08:34→16:12)
[2021-12-11 16:00] VITALS: BP 112/70
--- NOTE | 2021-12-11 18:46 | NUR ---
MS RN CLOSING NOTES PT IN BED AWAKE, PATIENT IS AOx4, ABLE TO MAKE NEEDS KNOWN IN [place]ONG[place]. ON RA AND TOLERATING WELL. NO SOB NOTED. NO RESPIRATORY DISTRESS NOTED. IV ACCESS IN R HAND #22G AND R CHEST WALL PORTACATH. IV IS INTACT, PATENT, AND FLUSHING WELL. ALL DUE MEDS GIVEN ORDERED. ALL TREATMENT DRESSINGS CHANGED.ALL SAFETY PRECAUTIONS IN PLACE: BED IN LOWEST, LOCKED POSITION, SIDERAILS UPx2, AND BRAKES ON. TABLE AND CALL LIGHT WITHIN REACH. WILL ENDORSE FOR DILLON..
[2021-12-11 20:00] VITALS: BP 114/71
--- NOTE | 2021-12-11 22:54 | NUR ---
RN NOTES: PT C/O GENERALIZED BODY PAIN, TRAMADOL GIVEN PRN ORDERED. WILL CONTINUE TO MONITOR
[2021-12-12 04:00] VITALS: BP 126/69
--- NOTE | 2021-12-12 06:33 | NUR ---
RN CLOSING NOTES: PATIENT IN BED AWAKE, ALERT/ ORIENTED X4 VERBALLY RESPONSIVE. ON ROOM AIR AND PT TOLERATED WELL. O2 SAT 100%. IV ACCESS ON RT HAND#22G INTACT AND PATENT. NO S/S OF INFILTRATIONS. RT CHEST WALL PORT CATH,. COVER WITH DRESSING. NO C/O PAIN OR DISCOMFORT. NO ACUTE DISTRESS. INCONTINENT ON BOWEL/BLADDER. PT HAS PURE WICK WHICH DRAINING WELL. COOPERATIVE WITH CARE. ALL SAFETY MEASURES IN PLACE. BED IN LOWEST POSITION AND LOCKED. PLACE CALL LIGHT WITHIN REACH. WILL ENDORSE TO MORNING SHIFT NURSE.
--- NOTE | 2021-12-12 07:10 | NUR ---
RN OPENING NOTE PT IN BED AWAKE, ALERT AND ORIENTED X 4.VERBALLY RESPONSIVE. PT ON ROOM AIR AT 94%. NOT IN ANY FORM OF PAIN OR DISCOMFORT.PT HAS RIGHT UPPER CHEST PORT A CATH WITH CLEAN DRESSING. PT HAS R IV LINE INTACT, PATENT AND FLUSHING WELL. ALL SAFETY PRECAUTIONS IN PLACE. BED IS LOCKED IN LOWEST POSITION, 2 SIDE RAILS UP, CALL LIGHT WITHIN REACH.BEDSIDE TABLE NEXT TO PATIENT.
[2021-12-12 07:21] LABS: ALBUMIN 2.5 g/dL (3.4-5.0); CALCIUM, SERUM 8.8 mg/dL (8.5-10.1); CREATININE 0.7 mg/dL (0.6-1.3); POTASSIUM 4.1 mmol/L (3.5-5.1)
[2021-12-12 07:36] LABS: BASOPHILS # (AUTO) 0.1 K/uL (0.0-0.2); BASOPHILS % (AUTO) 1.1 % (0.0-2.0); EOSINOPHILS % (AUTO) 2.8 % (0.0-6.0); HEMATOCRIT 29 % (33-45); HEMOGLOBIN 9.2 g/dL (11.5-14.8); LYMPHOCYTES # (AUTO) 1.7 K/uL (0.8-4.8); LYMPHOCYTES % (AUTO) 29.9 % (20.0-44.0); MEAN CORPUSCULAR HGB CONC 32 g/dl (31.0-36.0); MEAN CORPUSCULAR VOLUME 90 fL (82-100); MONOCYTES # (AUTO) 0.8 K/uL (0.1-1.30); MONOCYTES % (AUTO) 13.1 % (2.0-12.0); NEUTROPHILS % (AUTO) 53.1 % (43.0-81.0); PLATELET COUNT (AUTO) 141 K/uL (150-450); RED BLOOD CELL COUNT(AUTO) 3.21 MIL/uL (4.0-5.2); WHITE BLOOD COUNT (AUTO) 5.7 K/uL (4.3-11.0)
[2021-12-12 08:00] VITALS: BP 132/75
[2021-12-12] MEDS: DOCUSATE SODIUM 100 MG CAPSULE PO SCH (08:03)
[2021-12-12] MEDS: PANTOPRAZOLE 40 MG TABLET.DR PO SCH (08:03)
[2021-12-12] MEDS: GABAPENTIN 100 MG CAPSULE PO SCH ×2 (08:03→16:22)
[2021-12-12] MEDS: POLYETHYLENE GLYCOL 3350 17 GM POWD.PACK PO SCH (08:03)
[2021-12-12] MEDS: LETROZOLE 2.5 MG TABLET PO SCH (08:03)
[2021-12-12] MEDS: TRAMADOL HCL 50 MG TABLET PO PRN ×2 (08:03→17:56)
--- NOTE | 2021-12-12 08:10 | NUR ---
RN NOTE administered tramadol to pt complaint of severe pain 09/21 per md order. vital signs are within normal limits
[2021-12-12 16:00] VITALS: BP 128/83
--- NOTE | 2021-12-12 17:41 | NUR ---
rn note pt iv site on right hand is swollen and red. kept arm elevated. and inserted a new iv site on left wrist 22 guage
--- NOTE | 2021-12-12 18:53 | NUR ---
RN CLOSING NOTE PT IN BED AWAKE, ALERT AND ORIENTED X 4.HEAD OF BED ELEVATED. VERBALLY RESPONSIVE.ABLE TO MAKE NEEDS KNOWN.PT ON ROOM AIR TOLERATING AT 90-92%.NO COMPLAINTS OF PAIN OR DISCOMFORT.PT HAS RIGHT UPPER CHEST PORT A CATH WITH CLEAN DRESSING. PT HAS LEFT HAND 22 GAUGE. IV LINE INTACT, PATENT AND FLUSHING WELL. PT HAS PUREWICK IN PLACE, DRAINING YELLOW/SACHA URINE OUTPUT. KEPT CLEAN AND DRY. ALL SAFETY PRECAUTIONS IN PLACE. BED IS LOCKED IN LOWEST POSITION, 2 SIDE RAILS UP, CALL LIGHT WITHIN REACH.BEDSIDE TABLE NEXT TO PATIENT.
--- NOTE | 2021-12-12 19:40 | NUR ---
MS RN OPENING NOTE RECEIVED PT IN BED AWAKE, ALERT AND ORIENTED X 4. HEAD OF BED ELEVATED. VERBALLY RESPONSIVE. ABLE TO MAKE NEEDS KNOWN. PT ON ROOM AIR TOLERATING WELL. NO COMPLAINTS OF PAIN OR DISCOMFORT. PT HAS RIGHT UPPER CHEST PORT A CATH WITH DRESSING C/D/I. PT HAS LEFT WRIST #22 GAUGE IV LINE INTACT, PATENT AND FLUSHING WELL. PT HAS PUREWICK IN PLACE, DRAINING YELLOW/SACHA URINE OUTPUT. KEPT CLEAN AND DRY. ALL SAFETY PRECAUTIONS IN PLACE. BED IS LOCKED IN LOWEST POSITION, 2 SIDE RAILS UP, CALL LIGHT WITHIN REACH. WILL CONTINUE TO MONITOR THROUGHOUT THE SHIFT.
[2021-12-12 20:00] VITALS: BP 102/77
--- NOTE | 2021-12-13 02:40 | NUR ---
RN NOTE PT COMPLAINTS OF PAIN ON THE LOWER LEFT LEG RATED 8/10 ON PAIN SCALE. TRAMADOL GIVEN PRN MEDS FOR PAIN. WILL CONT TO MONITOR.
[2021-12-13] MEDS: TRAMADOL HCL 50 MG TABLET PO PRN ×3 (02:42→21:10)
[2021-12-13 04:00] VITALS: BP 102/65
--- NOTE | 2021-12-13 06:47 | NUR ---
MS RN CLOSING NOTE NO SIGNIFICANT CHANGES THROUGHOUT THE SHIFT. PT SLEEPING IN BED, A/OX4. HEAD OF BED ELEVATED. VERBALLY RESPONSIVE. ABLE TO MAKE NEEDS KNOWN. PT ON ROOM AIR TOLERATING WELL. NO COMPLAINTS OF PAIN OR DISCOMFORT. PT HAS RIGHT UPPER CHEST PORT A CATH WITH DRESSING C/D/I. PT HAS LEFT WRIST #22 GAUGE IV LINE INTACT, PATENT AND FLUSHING WELL. PT HAS PUREWICK IN PLACE, DRAINING YELLOW/SACHA URINE OUTPUT. KEPT CLEAN AND DRY. ALL SAFETY PRECAUTIONS IN PLACE. BED IS LOCKED IN LOWEST POSITION, 2 SIDE RAILS UP, CALL LIGHT WITHIN REACH. WILL ENDORSE TO AM SHIFT NURSE FOR CONTINUITY OF CARE.
--- NOTE | 2021-12-13 07:26 | NUR ---
RN OPENING NOTE RECEIVED PT IN BED AWAKE, ALERT AND ORIENTED X 4. HEAD OF BED ELEVATED. VERBALLY RESPONSIVE. ABLE TO MAKE NEEDS KNOWN. PT ON ROOM AIR TOLERATING WELL. NO COMPLAINTS OF PAIN OR DISCOMFORT. PT HAS RIGHT UPPER CHEST PORT A CATH WITH DRESSING C/D/I. PT HAS LEFT WRIST #22 GAUGE IV LINE INTACT, PATENT AND FLUSHING WELL. PT HAS PUREWICK IN PLACE, DRAINING YELLOW/SACHA URINE OUTPUT. ALL SAFETY PRECAUTIONS IN PLACE. BED IS LOCKED IN LOWEST POSITION, 2 SIDE RAILS UP, CALL LIGHT WITHIN REACH.
[2021-12-13 08:00] VITALS: BP 125/81
[2021-12-13] MEDS: LETROZOLE 2.5 MG TABLET PO SCH (08:18)
[2021-12-13] MEDS: DOCUSATE SODIUM 100 MG CAPSULE PO SCH (08:18)
[2021-12-13] MEDS: GABAPENTIN 100 MG CAPSULE PO SCH ×2 (08:18→16:51)
[2021-12-13] MEDS: PANTOPRAZOLE 40 MG TABLET.DR PO SCH (08:18)
[2021-12-13] MEDS: POLYETHYLENE GLYCOL 3350 17 GM POWD.PACK PO SCH (08:18)
--- NOTE | 2021-12-13 10:04 | NUR ---
RN NOTE PT RECOMMENDING LUMBAR BRACE. INFORMED OKAY TO PLACE ORDER. ORDER AND FACE SHEET FAXED OVER [phone]. CONFIRMED IT WAS RECEIVED
[2021-12-13 16:00] VITALS: BP 118/77
--- NOTE | 2021-12-13 16:06 | NUR ---
RN NOTE PATIENT TAKEN BY EMT IN STABLE CONDITION. DC INSTRUCTIONS DISCUSSED WITH PATIENT AND NU RN FROM NURSING FACILITY
--- NOTE | 2021-12-13 19:47 | NUR ---
RN CLOSING NOTE NO SIGNIFICANT CHANGES THROUGHOUT THE SHIFT. PT SLEEPING IN BED, A/OX4. HEAD OF BED ELEVATED. VERBALLY RESPONSIVE. ABLE TO MAKE NEEDS KNOWN. PT ON ROOM AIR TOLERATING WELL. NO COMPLAINTS OF PAIN OR DISCOMFORT. PT HAS RIGHT UPPER CHEST PORT A CATH WITH DRESSING C/D/I. PT HAS LEFT WRIST #22 GAUGE IV LINE INTACT, PATENT AND FLUSHING WELL. PT HAS PUREWICK IN PLACE, DRAINING YELLOW/SACHA URINE OUTPUT. KEPT CLEAN AND DRY. ALL SAFETY PRECAUTIONS IN PLACE. BED IS LOCKED IN LOWEST POSITION, 2 SIDE RAILS UP, CALL LIGHT WITHIN REACH. WILL ENDORSE TO PM SHIFT NURSE FOR CONTINUITY OF CARE.
[2021-12-13 20:00] VITALS: BP 109/63
[2021-12-14 04:00] VITALS: BP 116/72
[2021-12-14] MEDS: TRAMADOL HCL 50 MG TABLET PO PRN ×3 (05:13→22:21)
--- NOTE | 2021-12-14 06:49 | NUR ---
END OF SHIFT, PATIENT SLEEPING AT THIS TIME, AT ROOM AIR, NO S/S OF ANY SOB/ACUTE DISTRESS, NO SIGNIFICANT CHANGE IN CONDITION DURING THE NIGHT, BED IN LOWEST POSITION, CALL LIGHT WITHIN REACH, SIDE RAILS UP X3, WILL ENDORSE CONTINUITY OF CARE TO ONCOMING NURSE.
--- NOTE | 2021-12-14 07:37 | NUR ---
RN OPENING NOTE RECEIVED PT IN BED SLEEPING ALERT AND RESPONSIVE. HEAD OF BED ELEVATED. PT ON ROOM AIR TOLERATING WELL, NO SOB NOTED, RESPIRATIOB EVEN AND UNLABORED. NOT IN DISTRESS. NO COMPLAINTS OF PAIN OR DISCOMFORT. PT HAS RIGHT UPPER CHEST PORT A CATH WITH DRESSING C/D/I. PT HAS LEFT WRIST #22 GAUGE IV LINE INTACT. PT HAS PUREWICK IN PLACE. ALL SAFETY PRECAUTIONS IN PLACE. BED IS LOCKED IN LOWEST POSITION, 2 SIDE RAILS UP, CALL LIGHT WITHIN REACH. WILL CONTINUE PLAN OF CARE.
[2021-12-14] MEDS: GABAPENTIN 100 MG CAPSULE PO SCH ×2 (08:06→16:08)
[2021-12-14] MEDS: DOCUSATE SODIUM 100 MG CAPSULE PO SCH (08:06)
[2021-12-14] MEDS: LETROZOLE 2.5 MG TABLET PO SCH (08:06)
[2021-12-14] MEDS: PANTOPRAZOLE 40 MG TABLET.DR PO SCH (08:06)
[2021-12-14] MEDS: POLYETHYLENE GLYCOL 3350 17 GM POWD.PACK PO SCH (08:07)
[2021-12-14 12:00] VITALS: BP 120/73
--- NOTE | 2021-12-14 18:18 | NUR ---
RN CLOSING NOTE PATIENT ALERT AND VERBALLY RESPONSIVE. A/OX4. HEAD OF BED ELEVATED. ABLE TO MAKE NEEDS KNOWN. PT ON ROOM AIR TOLERATING WELL. NO C/O OF PAIN OR DISCOMFORT AT THIS TIME. PT RIGHT UPPER CHEST PORT A CATH WITH DRESSING C/D/I. PT LEFT WRIST #22 GAUGE IV LINE INTACT, PATENT AND FLUSHING WELL. PT HAS PUREWICK IN PLACE, DRAINING YELLOW/SACHA URINE OUTPUT. KEPT CLEAN AND DRY. ALL SAFETY PRECAUTIONS IN PLACE. BED IS LOCKED IN LOWEST POSITION, 2 SIDE RAILS UP, CALL LIGHT WITHIN REACH. WILL ENDORSE TO BIRD SITTER NURSE FOR CONTINUITY OF CARE.
--- NOTE | 2021-12-14 19:30 | NUR ---
PATIENT AWAKE. A/OX4. NO COMPLAINTS OF PAIN. ABLE TO MAKE NEEDS KNOWN. PT ON ROOM AIR TOLERATING WELL. PT RIGHT UPPER CHEST PORT A CATH NOTED. PT LEFT WRIST G#[address] PT HAS PUREWICK IN PLACE. ALL SAFETY PRECAUTIONS IN PLACE. HOB SLIGHTLY ELEVATED, BED IS LOCKED IN LOWEST POSITION, SIDE RAILS UP X2, BED ALARM ON, CALL LIGHT WITHIN REACH. WILL CONTINUE PLAN OF CARE.
[2021-12-14 20:00] VITALS: BP 117/70
[2021-12-15 04:00] VITALS: BP_SYST 124; BP_SYST 169; BP_DIAS 79; BP_DIAS 98
[2021-12-15] MEDS: TRAMADOL HCL 50 MG TABLET PO PRN ×3 (06:36→22:47)
--- NOTE | 2021-12-15 07:10 | NUR ---
PATIENT AWAKE. ALERT AND VERBALLY RESPONSIVE. A/OX4. ABLE TO MAKE NEEDS KNOWN. PT ON ROOM AIR TOLERATING WELL. NO C/O OF PAIN OR DISCOMFORT AT THIS TIME. PT RIGHT UPPER CHEST PORT A CATH WITH DRESSING C/D/I. WOUND DRESSING C/D/I. PT LEFT WRIST #22 GAUGE IV LINE INTACT, PATENT AND FLUSHING WELL. PT PUREWICK REPLACED, DRAINING YELLOW/SACHA URINE OUTPUT. KEPT CLEAN AND DRY. ALL SAFETY MEASURES MAINTAINED. HOB SLIGHTLY ELEVATED, BED IS LOCKED AND IS IN LOWEST POSITION, 2 SIDE RAILS UP, CALL LIGHT WITHIN REACH, BED ALARM ON. WILL ENDORSE TO NEXT SHIFT NURSE FOR CONTINUITY OF CARE.
--- NOTE | 2021-12-15 07:30 | NUR ---
RN NOTE RECEIVED PATIENT IN BED RESTING ALERT ORIENTED X4 VERBALLY RESPONSIVE ON ROOM AIR O2:93% IV SITE IS ON RIGHT UPPER CHEST PORT CATH AND LEFT WRIST IV SITE INTACT PATENT,PUREWIKE IS ON SUCTIONING WELL,SAFETY MEASURE IMPLEMENT BED IN LOW POSITION AND LOCKED,HEAD OF THE BED ELEVATED, CONTINUE TO MONITOR.
[2021-12-15] MEDS: PANTOPRAZOLE 40 MG TABLET.DR PO SCH (07:34)
[2021-12-15] MEDS: GABAPENTIN 100 MG CAPSULE PO SCH ×2 (08:19→16:57)
[2021-12-15] MEDS: DOCUSATE SODIUM 100 MG CAPSULE PO SCH (08:19)
[2021-12-15] MEDS: LETROZOLE 2.5 MG TABLET PO SCH (08:20)
[2021-12-15] MEDS: POLYETHYLENE GLYCOL 3350 17 GM POWD.PACK PO SCH (09:00)
[2021-12-15 12:00] VITALS: BP 115/76
--- NOTE | 2021-12-15 17:00 | NUR ---
RN NOTE SKID MAN OF DR NEGRO SEEN THE PATIENT,PT WILL RECEIVE MED FOR ONCOLOGY TODAY WILL GIVE TO PHARMACY AND TOMORROW WILL NOTIFY DR NEGRO FOR ORDER IN APR,WILL ENDORSE NEXT COMING SHIFT FOR CONTINUATION OF CARE.
--- NOTE | 2021-12-15 18:36 | NUR ---
RN NOTE PATIENT REMAINS ALERT ORIENTED X4 VERBALLY RESPONSIVE ON ROOM AIR NO SOB NOT ACUTE DISTRESS NOTED,ALL DUE MEDS GIVEN MD ORDERED KEPT CLEAN AND DRY ALL THE TIME,ALL NEED MET,ENDORSE NEXT COMING SHIFT FOR CONTINUATION OF CARE
[2021-12-15 20:00] VITALS: BP 121/71
[2021-12-15] MEDS: TEMAZEPAM 15 MG CAPSULE PO PRN (22:47)
[2021-12-16 04:00] VITALS: BP 111/76
[2021-12-16] MEDS: TRAMADOL HCL 50 MG TABLET PO PRN ×2 (07:04→19:37)
--- NOTE | 2021-12-16 07:47 | NUR ---
RN OPENING NOTE RECEIVED PT IN BED AWAKE, ALERT AND ORIENTED X 4. HEAD OF BED ELEVATED. VERBALLY RESPONSIVE. ABLE TO MAKE NEEDS KNOWN. PT ON ROOM AIR TOLERATING WELL. NO COMPLAINTS OF PAIN OR DISCOMFORT AT THIS TIME. PT HAS RIGHT UPPER CHEST PORT A CATH WITH DRESSING C/D/I. PT HAS LEFT WRIST #22 GAUGE.IV LINE INTACT, PATENT AND FLUSHING WELL. PT HAS PUREWICK IN PLACE, DRAINING YELLOW/SACHA URINE OUTPUT. ALL SAFETY PRECAUTIONS IN PLACE. BED IS LOCKED IN LOWEST POSITION, 2 SIDE RAILS UP, BEDSIDE TABLE NEXT TO PATIENT CALL LIGHT WITHIN REACH.
[2021-12-16 08:00] VITALS: BP 117/71
[2021-12-16] MEDS: PANTOPRAZOLE 40 MG TABLET.DR PO SCH (08:05)
[2021-12-16] MEDS: DOCUSATE SODIUM 100 MG CAPSULE PO SCH (08:05)
[2021-12-16] MEDS: POLYETHYLENE GLYCOL 3350 17 GM POWD.PACK PO SCH (08:06)
[2021-12-16] MEDS: LETROZOLE 2.5 MG TABLET PO SCH (08:07)
--- NOTE | 2021-12-16 10:00 | NUR ---
rn note notified dr. davis that pt cancer medication latanib is here and in pharmacy
--- NOTE | 2021-12-16 10:00 | NUR ---
rn note notified dr. davis that pt cancer medication lapatinib is here and bought it to pharmacy
[2021-12-16] MEDS: GABAPENTIN 100 MG CAPSULE PO SCH ×2 (10:05→17:34)
[2021-12-16 16:00] VITALS: BP 116/71
[2021-12-16] MEDS ORDERED: HOME MED MISCELLANEOUS XX SCH (17:00)
--- NOTE | 2021-12-16 18:47 | NUR ---
RN CLOSING NOTE PT IN BED AWAKE, ALERT AND ORIENTED X 4. HEAD OF BED ELEVATED. VERBALLY RESPONSIVE. ABLE TO MAKE NEEDS KNOWN. PT ON ROOM AIR TOLERATING WELL ABOVE 92%. NO COMPLAINTS OF PAIN OR DISCOMFORT AT THIS TIME. PT HAS RIGHT UPPER CHEST PORT A CATH WITH DRESSING C/D/I. PT HAS R AC #22 GAUGE.IV LINE INTACT, PATENT AND FLUSHING WELL. PT HAS PUREWICK IN PLACE, DRAINING YELLOW/SACHA URINE OUTPUT. ALL SAFETY PRECAUTIONS IN PLACE. BED IS LOCKED IN LOWEST POSITION, 2 SIDE RAILS UP, BEDSIDE TABLE NEXT TO PATIENT CALL LIGHT WITHIN REACH. WILL ENDORSE TO ELIZABETH WILLS RN FOR CONTINUITY OF CARE
--- NOTE | 2021-12-16 19:18 | NUR ---
RN NOTES RECEIVED PT FOR CONTINUITY OF CARE. PATIENT A/OX4 IN NO S/SX OF ACUTE DISTRESS AT THIS TIME; CURRENTLY ON ROOM AIR; WITH 02 SAT >95% AT THIS TIME. WITH IV ACCESS ON R AC#20 PATENT, INTACT AND FLUSHING WELL. WILL ENSURE SAFETY MEASURES WITHIN THE SHIFT. PATIENT BED ALARM IS ON. HEAD OF BED ELEVATED. BED IS LOCKED, IN LOWEST POSITION AND SIDE RAILS UP. CALL LIGHT WITHIN REACH OF THE PATIENT. WILL CONTINUE TO MONITOR AND REASSESS FOR ANY CHANGES AND WILL CARRY OUT ANY ONGOING AND ACTIVE MD ORDER.
[2021-12-16 20:00] VITALS: BP 130/75
[2021-12-17 04:00] VITALS: BP 111/70
--- NOTE | 2021-12-17 04:00 | NUR ---
RN NOTES PATIENT REMAINED TO BE IN NO SIGNS OF ACUTE RESPIRATORY DISTRESS ,SAFE ENVIRONMENT MAINTAINED FOR PT. AM PATIENT CARE ASSISTANCE RENDERED. WILL CONTINUE TO MONITOR AND REASSESS FOR ANY CHANGES THROUGHOUT THE SHIFT.
[2021-12-17] MEDS: TRAMADOL HCL 50 MG TABLET PO PRN ×3 (05:13→18:06)
[2021-12-17 07:00] LABS: BASOPHILS # (AUTO) 0.1 K/uL (0.0-0.2); BASOPHILS % (AUTO) 0.7 % (0.0-2.0); EOSINOPHILS % (AUTO) 2.7 % (0.0-6.0); HEMATOCRIT 31 % (33-45); HEMOGLOBIN 9.8 g/dL (11.5-14.8); LYMPHOCYTES # (AUTO) 1.6 K/uL (0.8-4.8); LYMPHOCYTES % (AUTO) 22.4 % (20.0-44.0); MEAN CORPUSCULAR HGB CONC 32 g/dl (31.0-36.0); MEAN CORPUSCULAR VOLUME 91 fL (82-100); NEUTROPHILS # (AUTO) 4.5 K/uL (1.8-8.9); NEUTROPHILS % (AUTO) 61.2 % (43.0-81.0); PLATELET COUNT (AUTO) 153 K/uL (150-450); RED BLOOD CELL COUNT(AUTO) 3.38 MIL/uL (4.0-5.2); WHITE BLOOD COUNT (AUTO) 7.3 K/uL (4.3-11.0)
[2021-12-17] MEDS ORDERED: PAMIDRONATE 90 MG in IV NS 0.9% 500 ML IV ONE (07:00)
--- NOTE | 2021-12-17 07:00 | NUR ---
RN CLOSING NOTE: PATIENT REMAINS IN ROOM IN NO SIGNS OF RESPIRATORY DISTRESS, PATIENT STILL ON ROOM AIR ;TOLERATING WELL SATURATING @ >95% SP02. SAFETY MEASURES IMPLEMENTED, BED IN LOWEST POSITION, LOCKED, SIDE RAILS UP, CALL LIGHT WITHIN REACH. ALL NEEDS AND ORDERS ADDRESSED DURING THE SHIFT. IV ACCESS MAINTAINED INTACT, SECURED AND FLUSHING WELL. ALL DUE MEDS GIVEN ORDERED & SCHEDULED ; PATIENT TOLERATED WELL. PATIENT KEPT CLEAN AND COMFORTABLE WITHIN THE SHIFT. SCHEDULED MEDICATION: AREDIA FOR 0700AM FOLLOWED UP FROM PHARMACY; WILL ALSO NEED TO WAIT FOR CALCIUM LEVEL IN THE MORNING PRIOR TO ADMINISTRATION; WILL ENDORSE TO AM SHIFT FOR FOLLOW THROUGH. PATIENT ENDORSED TO INCOMING SHIFT RN WITH STABLE VITAL SIGN AND FOR CONTINUITY OF CARE.
[2021-12-17 07:29] LABS: ALBUMIN 2.5 g/dL (3.4-5.0); BILIRUBIN,TOTAL 0.3 mg/dL (0.2-1.0); CALCIUM, SERUM 8.9 mg/dL (8.5-10.1); CREATININE 0.7 mg/dL (0.6-1.3); POTASSIUM 4.3 mmol/L (3.5-5.1); TOTAL PROTEIN, SERUM 6.4 g/dL (6.4-8.2)
[2021-12-17] MEDS: GABAPENTIN 100 MG CAPSULE PO SCH ×2 (08:10→16:02)
[2021-12-17] MEDS: DOCUSATE SODIUM 100 MG CAPSULE PO SCH (08:10)
[2021-12-17] MEDS: POLYETHYLENE GLYCOL 3350 17 GM POWD.PACK PO SCH (08:11)
[2021-12-17] MEDS: LAPATINIB 250 MG PO SCH (08:11)
[2021-12-17] MEDS: LETROZOLE 2.5 MG TABLET PO SCH (08:11)
[2021-12-17] MEDS: PANTOPRAZOLE 40 MG TABLET.DR PO SCH (08:13)
[2021-12-17 12:00] VITALS: BP 111/70
[2021-12-17 20:00] VITALS: BP 111/70
[2021-12-18] MEDS: TRAMADOL HCL 50 MG TABLET PO PRN ×3 (00:17→16:30)
[2021-12-18 04:00] VITALS: BP 126/81
--- NOTE | 2021-12-18 04:00 | NUR ---
RN NOTES PATIENT REMAINED TO BE IN NO SIGNS OF ACUTE RESPIRATORY DISTRESS ,SAFE ENVIRONMENT MAINTAINED FOR PT. AM PATIENT CARE ASSISTANCE RENDERED, WOUND CARE DONE. WILL CONTINUE TO MONITOR AND REASSESS FOR ANY CHANGES THROUGHOUT THE SHIFT.
--- NOTE | 2021-12-18 06:47 | NUR ---
RN CLOSING NOTE: PATIENT REMAINS IN ROOM IN NO SIGNS OF RESPIRATORY DISTRESS, PATIENT STILL ON ROOM AIR ;TOLERATING WELL SATURATING @ >95% SP02. SAFETY MEASURES IMPLEMENTED, BED IN LOWEST POSITION, LOCKED, SIDE RAILS UP, CALL LIGHT WITHIN REACH. ALL NEEDS AND ORDERS ADDRESSED DURING THE SHIFT. IV ACCESS MAINTAINED INTACT, SECURED AND FLUSHING WELL. ALL DUE MEDS GIVEN ORDERED & SCHEDULED ; PATIENT TOLERATED WELL. PATIENT KEPT CLEAN AND COMFORTABLE WITHIN THE SHIFT.PATIENT ENDORSED TO INCOMING SHIFT RN WITH STABLE VITAL SIGN AND FOR CONTINUITY OF CARE.
[2021-12-18 07:27] LABS: BASOPHILS # (AUTO) 0.1 K/uL (0.0-0.2); BASOPHILS % (AUTO) 0.8 % (0.0-2.0); EOSINOPHILS % (AUTO) 2.4 % (0.0-6.0); HEMATOCRIT 29 % (33-45); HEMOGLOBIN 9.2 g/dL (11.5-14.8); LYMPHOCYTES # (AUTO) 1.4 K/uL (0.8-4.8); LYMPHOCYTES % (AUTO) 20.2 % (20.0-44.0); MEAN CORPUSCULAR HGB CONC 31 g/dl (31.0-36.0); MEAN CORPUSCULAR VOLUME 90 fL (82-100); MONOCYTES # (AUTO) 0.8 K/uL (0.1-1.30); MONOCYTES % (AUTO) 11.3 % (2.0-12.0); NEUTROPHILS # (AUTO) 4.6 K/uL (1.8-8.9); NEUTROPHILS % (AUTO) 65.3 % (43.0-81.0); PLATELET COUNT (AUTO) 181 K/uL (150-450); RED BLOOD CELL COUNT(AUTO) 3.24 MIL/uL (4.0-5.2); WHITE BLOOD COUNT (AUTO) 7.1 K/uL (4.3-11.0)
[2021-12-18 07:32] LABS: CALCIUM, SERUM 8.9 mg/dL (8.5-10.1); CREATININE 0.6 mg/dL (0.6-1.3); POTASSIUM 4.2 mmol/L (3.5-5.1)
--- NOTE | 2021-12-18 07:58 | NUR ---
RN OPENING NOTE PATIENT RECEIVED IN BED, AO X 4, ABLE TO RESPONDS ALL STIMULI. IN NO ACUTE DISTRESS NOTED. RESPIRATORY EVEN AND UNLABORED IN ROOM AIR. SKIN IS WARM TO TOUCH, KEEP CLEAN/DRY. KEPT ELEVATED HOB FOR ENSURE AIRWAY AND ASPIRATION PRECAUTION, ALSO LOWEST POSITION OF THE BED, S/R UP X 3, BED ALARM IS ON AT ALL THE TIMES. ALL SAFETY PRECAUTION APPLIED. CALL LIGHT WITHIN REACH, WILL CONTINUE TO MONITOR.
[2021-12-18] MEDS: GABAPENTIN 100 MG CAPSULE PO SCH ×2 (08:17→16:30)
[2021-12-18] MEDS: PANTOPRAZOLE 40 MG TABLET.DR PO SCH (08:17)
[2021-12-18] MEDS: LETROZOLE 2.5 MG TABLET PO SCH (08:18)
[2021-12-18] MEDS: POLYETHYLENE GLYCOL 3350 17 GM POWD.PACK PO SCH (08:19)
[2021-12-18] MEDS: LAPATINIB 250 MG PO SCH (08:19)
[2021-12-18] MEDS: DOCUSATE SODIUM 100 MG CAPSULE PO SCH (08:19)
[2021-12-18 16:00] VITALS: BP 129/86
[2021-12-18] MEDS ORDERED: SIMETHICONE 80 MG TAB.CHEW PO PRN (16:00)
--- NOTE | 2021-12-18 18:00 | NUR ---
RN CLOSING NOTE PATIENT IN BED RESTING. IN NO ACUTE DISTRESS NOTED, RESPIRATORY EVEN AND UNLABORED IN ROOM AIR. SKIN IS WARM TO TOUCH, KEEP CLEAN/DRY. KEPT ELEVATED HOB FOR ENSURE AIRWAY AND ASPIRATION PRECAUTION. BED IN LOWEST POSITION AND LOCKED. BED ALARM IS ON AT ALL THE TIMES. ALL SAFETY MEASURE APPLIED. CALL LIGHT WITHIN REACH, WILL ENDORSED TO NEXT SHIFT.
[2021-12-18] MEDS: IBUPROFEN 400 MG TABLET PO PRN (20:19)
[2021-12-19] VITALS: BP 139/86
[2021-12-19] MEDS: TRAMADOL HCL 50 MG TABLET PO PRN ×3 (00:20→17:27)
--- NOTE | 2021-12-19 07:00 | NUR ---
RN OPENING NOTE PATIENT RECEIVED IN BED, AO X 4, . IN NO ACUTE DISTRESS NOTED. RESPIRATORY EVEN AND UNLABORED IN ROOM AIR. SKIN IS WARM TO TOUCH, KEEP CLEAN/DRY. KEPT ELEVATED HOB FOR ENSURE AIRWAY AND ASPIRATION PRECAUTION, ALSO LOWEST POSITION OF THE BED, S/R UP X 3, BED ALARM IS ON AT ALL THE TIMES. ALL SAFETY PRECAUTION APPLIED. CALL LIGHT WITHIN REACH, WILL MONITOR.
--- NOTE | 2021-12-19 07:01 | NUR ---
PATIENT IN BED AWAKE, IN NO ACUTE DISTRESS NOTED, RESPIRATORY EVEN AND UNLABORED IN ROOM AIR. SKIN IS WARM TO TOUCH, KEPT CLEAN/DRY. KEPT HOB ELEVATED, BED IN LOWEST POSITION AND LOCKED. BED ALARM IS ON AT ALL THE TIMES. ALL SAFETY MEASURES APPLIED. CALL LIGHT WITHIN REACH, WILL ENDORSED TO NEXT NURSE ON DUTY FOR CONTINUITY OF CARE.
[2021-12-19] MEDS: PANTOPRAZOLE 40 MG TABLET.DR PO SCH (07:59)
[2021-12-19 08:00] VITALS: BP 119/67
[2021-12-19] MEDS: POLYETHYLENE GLYCOL 3350 17 GM POWD.PACK PO SCH ×2 (09:00→09:25)
[2021-12-19] MEDS: LETROZOLE 2.5 MG TABLET PO SCH (09:25)
[2021-12-19] MEDS: GABAPENTIN 100 MG CAPSULE PO SCH ×2 (09:26→17:23)
[2021-12-19] MEDS: LAPATINIB 250 MG PO SCH (09:26)
[2021-12-19] MEDS: DOCUSATE SODIUM 100 MG CAPSULE PO SCH (09:26)
[2021-12-19] MEDS ORDERED: LOPERAMIDE HCL (2 MG CAP) 2 MG CAPSULE PO PRN (13:00)
[2021-12-19 16:00] VITALS: BP 111/66
--- NOTE | 2021-12-19 19:36 | NUR ---
RN CLOSING NOTE PATIENT IN BED RESTING. IN NO ACUTE DISTRESS NOTED, RESPIRATORY EVEN AND UNLABORED IN ROOM AIR. SKIN IS WARM TO TOUCH, KEEP CLEAN/DRY. KEPT ELEVATED HOB .pt asked for tramadol every 8 hours for pain as ordered. continue purewick. BED IN LOWEST POSITION AND LOCKED. BED ALARM IS ON AT ALL THE TIMES. ALL SAFETY MEASURE APPLIED. CALL LIGHT WITHIN REACH, WILL ENDORSED TO NEXT SHIFT.
--- NOTE | 2021-12-19 19:53 | NUR ---
RN OPENING NOTE; PATIENT RECEIVED IN BED, AAO X 4, ABLE TO MAKE NEEDS KNOWN,ON RM AIR DANNY WELL,NO SIGN SOB/DISTRESS NOTED,BREATHING EVEN AND UNLABORED,NO COMPLAIN FOR PAIN/DISCOMFORT AT THIS TIME,SAFETY MEASURE IN PLACE, CALL LIGHT WITHIN REACH, WILL CONTINUE TO MONITOR.
[2021-12-20] VITALS: BP 114/66
[2021-12-20] MEDS: TRAMADOL HCL 50 MG TABLET PO PRN ×2 (04:27→15:51)
--- NOTE | 2021-12-20 06:21 | NUR ---
RN CLOSING NOTES; PATIENT IN BED, AAO X 4, ABLE TO MAKE NEEDS KNOWN,ON RM AIR DANNY WELL,NO SIGN SOB/DISTRESS NOTED,BREATHING EVEN AND UNLABORED,NO COMPLAIN FOR PAIN/DISCOMFORT DURING SHIFT,DUE MEDS GIVEN ORDER ALL NEEDS ATTENDED,IV ACCESS ON RAC 20G SL INTACT AND PATENT,SAFETY MEASURE IN PLACE, CALL LIGHT WITHIN REACH, WILL ENDORSED TO NEXT SHIFT.
[2021-12-20 06:52] LABS: BASOPHILS % (AUTO) 0.7 % (0.0-2.0); EOSINOPHILS % (AUTO) 3.1 % (0.0-6.0); HEMATOCRIT 28 % (33-45); HEMOGLOBIN 8.9 g/dL (11.5-14.8); LYMPHOCYTES # (AUTO) 1.2 K/uL (0.8-4.8); LYMPHOCYTES % (AUTO) 20.2 % (20.0-44.0); MEAN CORPUSCULAR HGB CONC 31 g/dl (31.0-36.0); MEAN CORPUSCULAR VOLUME 90 fL (82-100); MONOCYTES # (AUTO) 0.7 K/uL (0.1-1.30); MONOCYTES % (AUTO) 11.2 % (2.0-12.0); NEUTROPHILS % (AUTO) 64.8 % (43.0-81.0); PLATELET COUNT (AUTO) 212 K/uL (150-450); RED BLOOD CELL COUNT(AUTO) 3.15 MIL/uL (4.0-5.2); WHITE BLOOD COUNT (AUTO) 6.2 K/uL (4.3-11.0)
[2021-12-20] MEDS: PANTOPRAZOLE 40 MG TABLET.DR PO SCH (07:37)
--- NOTE | 2021-12-20 07:38 | NUR ---
MS RN NOTE \ PATIENT IN BED, AAO X 4, ABLE TO MAKE NEEDS KNOWN,ON RM AIR DANNY WELL,NO SIGN SOB/NOTED AT THIS TIME NOTED,BREATHING EVEN AND UNLABORED,NO COMPLAIN FOR PAIN/DISCOMFIT , ALL NEEDS ATTENDED,IV ACCESS ON RAC 20G SL INTACT AND PATENT,SAFETY MEASURE IN PLACE, CALL LIGHT WITHIN REACH,WILL CONT TO MONITOR
[2021-12-20 07:53] LABS: ALBUMIN 2.3 g/dL (3.4-5.0); BILIRUBIN,DIRECT 0.1 mg/dL (0.0-0.2); BILIRUBIN,TOTAL 0.3 mg/dL (0.2-1.0); CALCIUM, SERUM 8.1 mg/dL (8.5-10.1); CREATININE 0.6 mg/dL (0.6-1.3); POTASSIUM 3.8 mmol/L (3.5-5.1); TOTAL PROTEIN, SERUM 6.4 g/dL (6.4-8.2)
[2021-12-20 08:00] VITALS: BP 98/72
[2021-12-20] MEDS: LAPATINIB 250 MG PO SCH (08:01)
[2021-12-20] MEDS: GABAPENTIN 100 MG CAPSULE PO SCH ×2 (08:01→16:28)
[2021-12-20] MEDS: LETROZOLE 2.5 MG TABLET PO SCH (08:01)
[2021-12-20] MEDS: POLYETHYLENE GLYCOL 3350 17 GM POWD.PACK PO SCH (08:02)
[2021-12-20] MEDS: DOCUSATE SODIUM 100 MG CAPSULE PO SCH (08:02)
--- NOTE | 2021-12-20 10:30 | NUR ---
MS RN NOTE SEEN Y PT ABLE TO DO STAND UP WILL MONITOR
--- NOTE | 2021-12-20 11:30 | NUR ---
ms rn note seen by michelle oncologist no new order ff given at thise time ,
--- NOTE | 2021-12-20 14:37 | NUR ---
MS RN NOTE ROUNDS MADE ,ALL NEEDS ATTENDEE , NOT IN DISTRESS
[2021-12-20 16:00] VITALS: BP 117/73
--- NOTE | 2021-12-20 18:17 | NUR ---
MS RN NOTE ROUNDS MADE , ALL NEEDS ATTENDED NO C]O PAIN OR DISCOMFORT WITH PURRE WICK ORDERED ABLE TO URINATE WELL . NO SOB NOTED ON RA , CALL LIGHT WITHIN REACH , SAFETY MEASURE IMPLEMENTED, TURN REPOSITION KEEP CLEAN DRY
[2021-12-20 18:57] LABS: BASOPHILS % (MANUAL) 0 % (0.0-2.0); EOSINOPHILS % (MANUAL) 2 % (0-4); LYMPHOCYTES % (MANUAL) 19 % (16-48); MONOCYTES % (MANUAL) 10 % (0-11.0); NEUTROPHILS % (MANUAL) 69 (42-76)
[2021-12-20 20:00] VITALS: BP 117/74
--- NOTE | 2021-12-20 23:37 | NUR ---
MS RN OPENING NOTE PT RECEIVED IN BED, AWAKE, A&O X4, CALM, COOPERATIVE. PT ON RA WITH CURRENT O2SAT OF 93; NO S/S OF RESP DISTRESS, NO COMPLAINT OF SOB, NO COUGH, NON-LABORED AND EQUAL BREATHING. VSS, WILL CONTINUE TO MONITOR NEEDED. PT NOTED TO HAVE PUREWICK, INTACT AND PATENT, DRAINING CLEAR AND YELLOW URINE. IV ACCESS ON RAC 20G AND PORT-A-CATH ON RIGHT UPPER CHEST WALL; NO MEDS/FLUIDS INFUSING. BED IN LOWEST POSITION, CALL LIGHT WITHIN REACH, SIDE RAILS UP X2. WILL CONTINUE TO MONITOR THROUGHOUT THE NIGHT.
[2021-12-21] MEDS: TRAMADOL HCL 50 MG TABLET PO PRN ×3 (00:05→18:14)
--- NOTE | 2021-12-21 00:05 | NUR ---
RN NOTE PT REPORTS OF AN 8/10 BACK PAIN AND REQUESTS FOR TRAMADOL. PT ADMINISTERED TRAMADOL 100 MG. WILL MONITOR FOR EFFECTIVENESS.
[2021-12-21 04:00] VITALS: BP 125/80
--- NOTE | 2021-12-21 06:47 | NUR ---
MS RN CLOSING NOTE PT REMAINS IN BED, AWAKE, A&O X4, CALM, COOPERATIVE; SLEPT WELL THROUGHOUT THE NIGHT. ON RA WITH O2SAT RANGING FROM 93%-96%; NO S/S OF RESP DISTRESS, NO COMPLAINT OF SOB, NO COUGH, NON-LABORED AND EQUAL BREATHING. VSS THROUGHOUT THE NIGHT WITH NO SIGNIFICANT CHANGES. PUREWICK INTACT AND PATENT, DRAINING CLEAR AND YELLOW URINE. IV ACCESS ON RAC 20G AND PORT-A-CATH ON RIGHT UPPER CHEST WALL; NO MEDS/FLUIDS INFUSING. WOUND ON LEFT BREAST CLEANSED AND NEW DRESSING APPLIED. BED IN LOWEST POSITION, CALL LIGHT WITHIN REACH, SIDE RAILS UP X2. WILL ENDORSE TO DAYSHIFT NURSE TO CONTINUE CARE.
--- NOTE | 2021-12-21 07:15 | NUR ---
RN OPENING NOTE PATIENT IN BED, A/O X 4, ABLE TO MAKE NEEDS KNOWN,ON RM AIR TOLERATING WELL,NO SIGN SOB/NOTED AT THIS TIME NOTED,BREATHING EVEN AND UNLABORED,NO COMPLAIN FOR PAIN/DISCOMFIT , IV ACCESS ON RAC 20G SL INTACT AND PATENT,SAFETY MEASURE IN PLACE, CALL LIGHT WITHIN REACH.
[2021-12-21 07:47] LABS: IRON, SERUM 45 ug/dl (50-175); TOTAL IRON BINDING CAPACITY 216 ug/dl (250-450)
[2021-12-21 08:02] LABS: FERRITIN 534 ng/mL (8-388)
[2021-12-21] MEDS: POLYETHYLENE GLYCOL 3350 17 GM POWD.PACK PO SCH (08:15)
[2021-12-21] MEDS: PANTOPRAZOLE 40 MG TABLET.DR PO SCH (08:16)
[2021-12-21] MEDS: DOCUSATE SODIUM 100 MG CAPSULE PO SCH (08:16)
[2021-12-21] MEDS: GABAPENTIN 100 MG CAPSULE PO SCH ×2 (08:16→18:10)
[2021-12-21] MEDS: LETROZOLE 2.5 MG TABLET PO SCH (09:24)
[2021-12-21] MEDS: LAPATINIB 250 MG PO SCH (09:24)
[2021-12-21 12:00] VITALS: BP 112/66
--- NOTE | 2021-12-21 12:00 | NUR ---
RN NOTE PT REFUSED NEW IV ACCESS INFORMED CHARGE NURSE.
--- NOTE | 2021-12-21 17:00 | NUR ---
RN NOTE RECEIVED ORDER FORM ID ALEJANDRA TO PLACE ORDER FOR DOXYCYCLINE 100MG BID Q12H. ORDERS PLACE FIRST DOSE GIVEN.
[2021-12-21] MEDS: DOXYCYCLINE HYCLATE (100 MG) 100 MG TABLET PO SCH (18:11)
--- NOTE | 2021-12-21 19:15 | NUR ---
HOT MAN OPENING NOTE RECEIVED PT IN BED, A/O X 4, ABLE TO MAKE NEEDS KNOWN,ON RM AIR TOLERATING WELL,NO S/S OF ACUTE DISTRESS, NO COMPLAIN FOR PAIN/DISCOMFIT , NO IV ACCESS ON PT, SHE REFUSED TO HAVE AN IV. ALL SAFETY MEASURES IN PLACE, BED IN LOWEST POSITION AND LOCKED. BED ALARM ON. SIDE RAILS UP X3, PLACE CALL LIGHT WITH IN REACH. WILL CONTINUE TO MONITOR.
[2021-12-21 20:00] VITALS: BP 111/70
[2021-12-21] MEDS ORDERED: DOXYCYCLINE HYCLATE (100 MG) 100 MG TABLET PO SCH (21:00)
[2021-12-22] MEDS: TRAMADOL HCL 50 MG TABLET PO PRN ×3 (02:30→18:14)
[2021-12-22 04:00] VITALS: BP 114/69
--- NOTE | 2021-12-22 06:52 | NUR ---
MS RN CLOSING NOTE PT IN BED, A/O X 4, ABLE TO MAKE NEEDS KNOWN,ON RM AIR TOLERATING WELL,NO S/S OF ACUTE DISTRESS, NO COMPLAIN FOR PAIN/DISCOMFIT , STILL NO IV ACCESS ON PT,SHE HAS A PUREWICK THAT SUCTIONED 1100ML. ALL DUE MEDS GIVEN. ALL SAFETY MEASURES IN PLACE, BED IN LOWEST POSITION AND LOCKED. BED ALARM ON. SIDE RAILS UP X3, PLACE CALL LIGHT WITH IN REACH. WILL ENDORSE TO MORNING NURSE FOR DILLON.
--- NOTE | 2021-12-22 07:34 | NUR ---
RN OPENING NOTE PATIENT IN BED SLEEPING, PATIENT A/O X 4, ABLE TO MAKE NEEDS KNOWN,ON RM AIR TOLERATING WELL,NO SIGN SOB/NOTED AT THIS TIME NOTED,BREATHING EVEN AND UNLABORED,NO COMPLAIN FOR PAIN/DISCOMFIT , IV ACCESS ON RAC 20G SL INTACT AND PATENT, SAFETY MEASURE IN PLACE, CALL LIGHT WITHIN REACH. WILL CONTINUE PLAN OF CARE. Addendum: 12/22/21 at 0850 by FARIDEH CUNNINGHAM RN CORRECTION: NO IV ACCESS NOTED, PER PATIENT IT WAS REMOVED LAST NIGHT
[2021-12-22] MEDS: PANTOPRAZOLE 40 MG TABLET.DR PO SCH (07:50)
[2021-12-22] MEDS: GABAPENTIN 100 MG CAPSULE PO SCH ×2 (08:12→16:15)
[2021-12-22] MEDS: LAPATINIB 250 MG PO SCH (08:13)
[2021-12-22] MEDS: LETROZOLE 2.5 MG TABLET PO SCH (08:13)
[2021-12-22] MEDS: DOXYCYCLINE HYCLATE (100 MG) 100 MG TABLET PO SCH ×2 (08:13→16:15)
[2021-12-22] MEDS: POLYETHYLENE GLYCOL 3350 17 GM POWD.PACK PO SCH (08:46)
[2021-12-22] MEDS: DOCUSATE SODIUM 100 MG CAPSULE PO SCH (09:04)
[2021-12-22 12:00] VITALS: BP 115/70
--- NOTE | 2021-12-22 18:15 | NUR ---
MS RN CLOSING NOTE PT IN BED AWAKE, A/O X 4, ABLE TO MAKE NEEDS KNOWN,ON RM AIR TOLERATING WELL,NO S/S OF ACUTE DISTRESS, NO COMPLAIN FOR PAIN/DISCOMFIT, PATIENT NOTED WITH PUREWICK INTACT. ALL DUE MEDS GIVEN. ALL SAFETY MEASURES IN PLACE, BED IN LOWEST POSITION AND LOCKED. RIGHT PORTACATH DRESSING C/D/I. LEFT LOWER BREAST WOUND DRESSING KEPT C/D/I. BED ALARM ON. SIDE RAILS UP X3, PLACE CALL LIGHT WITH IN REACH. WILL ENDORSE TO NIGHT NURSE FOR DILLON.
[2021-12-22 20:00] VITALS: BP 114/72
--- NOTE | 2021-12-22 20:00 | NUR ---
RN OPENING NOTE RECEIVED PATIENT IN BED AWAKE , A/O X 4, ABLE TO MAKE NEEDS KNOWN,ON RM AIR TOLERATING WELL,NO SIGN SOB/NOTED AT THIS TIME NOTED,BREATHING EVEN AND UNLABORED,NO COMPLAIN FOR PAIN/DISCOMFIT , IV ACCESS ON RAC 20G SL INTACT AND PATENT, SAFETY MEASURE IN PLACE, CALL LIGHT WITHIN REACH. WILL CONTINUE PLAN OF CARE.
--- NOTE | 2021-12-22 22:25 | NUR ---
MS RN NOTES REPORT AND CONTINUITY OF CARE GIVEN TO CRYSTAL NICHOLSON
[2021-12-23 04:00] VITALS: BP 120/69
--- NOTE | 2021-12-23 06:48 | NUR ---
REPORT REC'D AT CARE CHANGE MIDSHIFT. PT STABLE SLEPT FOR LONG PERIODS AM CARE GIVEN.
[2021-12-23] MEDS: PANTOPRAZOLE 40 MG TABLET.DR PO SCH (06:53)
[2021-12-23] MEDS: TRAMADOL HCL 50 MG TABLET PO PRN (07:01)
[2021-12-23] MEDS ORDERED: PANTOPRAZOLE 40 MG/PACK PACK PO SCH (07:30)
[2021-12-23] MEDS: LETROZOLE 2.5 MG TABLET PO SCH (08:17)
[2021-12-23] MEDS: GABAPENTIN 100 MG CAPSULE PO SCH (08:17)
[2021-12-23] MEDS: POLYETHYLENE GLYCOL 3350 17 GM POWD.PACK PO SCH (08:17)
[2021-12-23] MEDS: DOXYCYCLINE HYCLATE (100 MG) 100 MG TABLET PO SCH (08:17)
[2021-12-23] MEDS: LAPATINIB 250 MG PO SCH (08:17)
[2021-12-23] MEDS: DOCUSATE SODIUM 100 MG CAPSULE PO SCH (08:17)
[2021-12-23] MEDS ORDERED: DOCU100C36 PO (10:25)
[2021-12-23] MEDS ORDERED: GABA100C PO (10:25)
[2021-12-23] MEDS ORDERED: TRAM50TA2 PO (10:25)
[2021-12-23] MEDS ORDERED: PANT40TA49 PO (10:25)
[2021-12-23] MEDS ORDERED: LETR2.5T PO (10:25)
[2021-12-23] MEDS ORDERED: DOXY100T2 PO (10:25)
[2021-12-23 12:00] VITALS: BP 120/70
--- NOTE | 2021-12-23 14:00 | NUR ---
MS MUNICIPAL BOND TRADER NOTES PATIENT MADE AWARE OF MD DISCHARGE ORDERS AND INSTRUCTIONS. PATIENT SIGNED MD DISCHARGE INSTRUCTIONS SHEET. PATIENT VERBALIZED POSSESSION OF ALL BELONGINGS AND SIGNED BELONGINGS SHEET. MEDICATIONS GIVEN TO PATIENT FROM PHARMACY, AND NEW MEDICATION PRESCRIPTIONS GIVEN TO PATIENT. PATIENT TRANSPORTED OFF OF UNIT VIA GURNEY ACCOMPANIED BY 2 SOUP MIXER. PATIENT DISCHARGED WITH WHEELCHAIR, LUMBAR BRACE, AND OTHER EQUIPMENT. IV LINE AND ID BANDS REMOVED. PATIENT STABLE AT TIME OF DISCHARGE.
== END 2021-12-23 16:33 | DRG 579 ==
LOC: ER 18:57 → MEDSG1 22:30 → TELE1 22:40 → MEDSG1 11-27 13:25
PROVIDERS: ADMIT Nurse Practitioner Acute Care; ATTEND Nurse Practitioner Acute Care
PROC: 0HBU0ZX Excision of Left Breast, Open Approach, Diagnostic (ICD-10-PCS; principal; 2021-11-23)
PROC: 0JH63XZ Insertion of Tunneled Vascular Access Device into Chest Subcutaneous Tissue and Fascia, Percutaneous Approach (ICD-10-PCS; 2021-11-30)
PROC: 05HM33Z Insertion of Infusion Device into Right Internal Jugular Vein, Percutaneous Approach (ICD-10-PCS; 2021-11-30)
PROC: B543ZZA Ultrasonography of Right Jugular Veins, Guidance (ICD-10-PCS; 2021-11-30)
DX: C50.912 Malignant neoplasm of unspecified site of left female breast (principal); N17.0 Acute kidney failure with tubular necrosis; C79.51 Secondary malignant neoplasm of bone; M84.58XA Pathological fracture in neoplastic disease, other specified site, initial encounter for fracture; J98.11 Atelectasis; J90 Pleural effusion, not elsewhere classified; E44.0 Moderate protein-calorie malnutrition; Z98.890 Other specified postprocedural states; Z88.6 Allergy status to analgesic agent; Z91.012 Allergy to eggs; Z88.5 Allergy status to narcotic agent; Z91.018 Allergy to other foods; R26.9 Unspecified abnormalities of gait and mobility; M48.04 Spinal stenosis, thoracic region; K59.00 Constipation, unspecified; D64.9 Anemia, unspecified; E83.52 Hypercalcemia; E83.42 Hypomagnesemia; E87.6 Hypokalemia; E88.09 Other disorders of plasma-protein metabolism, not elsewhere classified; K80.20 Calculus of gallbladder without cholecystitis without obstruction; E66.9 Obesity, unspecified; Z68.21 Body mass index [BMI] 21.0-21.9, adult; R59.0 Localized enlarged lymph nodes; R74.8 Abnormal levels of other serum enzymes
CPT/HCPCS: 36415; 70553-TC; 71045-TC; 71260-TC; 72128-TC; 72131-TC; 72149-TC; 76641-TC; 80048-TC; 80053-TC; 80076-TC; 81001; 82040-TC; 82306; 82378; 82607-TC; 82728-TC; 82784; 82962-TC; 83540-TC; 83690-TC; 83735-TC; 83970; 84100-TC; 84155; 84165; 84443-TC; 85025-TC; 85730-TC; 86300; 86304; 86334; 86850-TC; 87081-TC; 97110-TC; 97112-TC; 97116-TC; 97530-TC; A4217; A6253; A6403; A9575; C1788; C9803; G0378; J0690; J1170; J1644; J2270; J2405; J2430; J2704; J3010; J3475; J3480; J3490; J7030; J7040; J7050; J7060; Q9967

== ENCOUNTER 2023-08-20 20:27 | Inpatient (IN) | payer BC, OTHER ==
[~2023-08-20] VITALS: Ht 170.2 cm; Wt 86.2 kg
[~2023-08-20 20:27] MED LIST: DOCU100C36 PO; DOXY100T2 PO; GABA100C PO; IBUP-1957 PO; LETR2.5T PO; PANT40TA49 PO; TRAM50TA2 PO
[2023-08-20 21:06] LABS: BASOPHILS # (AUTO) 0.1 K/uL (0.0-0.2); BASOPHILS % (AUTO) 0.2 % (0.0-2.0); HEMATOCRIT 40 % (33-45); HEMOGLOBIN 12.7 g/dL (11.5-14.8); LYMPHOCYTES # (AUTO) 0.5 K/uL (0.8-4.8); LYMPHOCYTES % (AUTO) 0.9 % (20.0-44.0); MEAN CORPUSCULAR HEMOGLOBIN 30 PG (26.0-33.0); MEAN CORPUSCULAR HGB CONC 32 g/dl (31.0-36.0); MEAN CORPUSCULAR VOLUME 93 fL (82-100); MONOCYTES # (AUTO) 2.9 K/uL (0.1-1.30); MONOCYTES % (AUTO) 5.5 % (2.0-12.0); NEUTROPHILS # (AUTO) 50.2 K/uL (1.8-8.9); NEUTROPHILS % (AUTO) 93.4 % (43.0-81.0); PLATELET COUNT (AUTO) 420 K/uL (150-450); RED BLOOD CELL COUNT(AUTO) 4.27 MIL/uL (4.0-5.2); RED CELL DISTRIBUTION WIDTH 18.1 % (11.5-15.0)
[2023-08-20 21:13] LABS: WHITE BLOOD COUNT (AUTO) 53.8 K/uL (4.3-11.0)
[2023-08-20 21:25] LABS: CALCIUM, SERUM 9.2 mg/dL (8.5-10.1); CARBON DIOXIDE 25 mmol/L (21-32); CHLORIDE 100 mmol/L (98-107); CREATININE 1.1 mg/dL (0.6-1.3); GLUCOSE 159 mg/dL (74-106); POTASSIUM 4.3 mmol/L (3.5-5.1); SODIUM SERUM 136 mmol/L (136-145); UREA NITROGEN, BLOOD 12 mg/dL (7-18)
[2023-08-20 21:31] LABS: INR 1.2 (0.91-1.10); PARTIAL THROMBOPLASTIN TIME 30.4 SEC (24.3-34.3); PROTHROMBIN TIME 12.3 SECS (9.2-11.1)
[2023-08-20 21:37] LABS: LACTIC ACID 2.8 mmol/L (0.4-2.0)
[2023-08-20 21:42] LABS: ALANINE AMINOTRANSFERASE 55 U/L (12-78); ALKALINE PHOSPHATASE 128 U/L (46-116); ASPARTATE AMINOTRANSFERASE 51 U/L (15-37); BILIRUBIN,DIRECT 0.3 mg/dL (0.0-0.2); BILIRUBIN,TOTAL 0.9 mg/dL (0.2-1.0); NT-PRO BNP 6266 pg/mL (0-125); TOTAL PROTEIN, SERUM 7.1 g/dL (6.4-8.2)
[2023-08-20 21:48] LABS: ALBUMIN 2.2 g/dL (3.4-5.0)
[2023-08-20] MEDS ORDERED: GABA-532 PO (22:29)
[2023-08-20] MEDS ORDERED: ACETAMINOPHEN 325 MG TABLET PO PRN (22:30)
[2023-08-20] MEDS ORDERED: MAGNESIUM HYDROXIDE 30 ML UDC PO PRN (22:30)
[2023-08-20] MEDS ORDERED: ZOLPIDEM TARTRATE 5 MG TABLET PO PRN (22:30)
[2023-08-20] MEDS ORDERED: ONDANSETRON HCL/PF 4 MG/2 ML VIAL IVP PRN (22:30)
[2023-08-20] MEDS ORDERED: MAG HYDROX/AL HYDROX/SIMETH 30 ML UDC PO PRN (22:30)
[2023-08-20 23:14] LABS: ABG OXYGEN SATURATION 96.9 % (92.0-98.5); ABG PCO2 32.3 mmHg (35.0-45.0); ABG PH 7.453 (7.350-7.450); ABG PO2 91.3 mmHg (75.0-100.0); ABG TOTAL HEMOGLOBIN 13.9 G/dL (12.0-16.0); COHb 0.1 % (0.5-1.5); MetHb 0.4 % (0.0-1.5); O2Hb 96.4 % (94.0-97.0); SITE, ABG Left Radial
[2023-08-20 23:30] VITALS: O2SAT 93
[2023-08-20 23:45] VITALS: BP 147/95; O2SAT 96
[2023-08-20] MEDS: LEVOFLOXACIN 750 MG /D5W 150ML 150 ML IV ONE (23:51)
[2023-08-20] MEDS: LEVOFLOXACIN 750 MG /D5W 150ML 750 MG in PREMIX 1 EA IV ONE (23:52)
[2023-08-20] MEDS: FUROSEMIDE 40 MG/4 ML VIAL IV ONE (23:52)
[2023-08-20] MEDS: ENOXAPARIN SODIUM 40 MG/0.4 ML DISP.SYRIN SQ ONE (23:53)
[2023-08-21] VITALS (33 sets, daily range): BP systolic 92–134; BP diastolic 54–90; TEMP 98–98.9; O2SAT 92–98
[2023-08-21] MEDS ORDERED: IV NS 0.9% 250 ML IV PRN
[2023-08-21 00:12] LABS: BASOPHILS % (MANUAL) 0 % (0.0-2.0); EOSINOPHILS % (MANUAL) 0 % (0-4); LYMPHOCYTES % (MANUAL) 0 % (16-48); MONOCYTES % (MANUAL) 3 % (0-11.0); NEUTROPHILS % (MANUAL) 97 (42-76); PLATELET ESTIMATE ADEQUATE
[2023-08-21 04:00] LABS: BASOPHILS # (AUTO) 0.1 K/uL (0.0-0.2); BASOPHILS % (AUTO) 0.2 % (0.0-2.0); HEMATOCRIT 37 % (33-45); HEMOGLOBIN 12.2 g/dL (11.5-14.8); LYMPHOCYTES # (AUTO) 0.5 K/uL (0.8-4.8); MEAN CORPUSCULAR HEMOGLOBIN 31 PG (26.0-33.0); MEAN CORPUSCULAR HGB CONC 33 g/dl (31.0-36.0); MEAN CORPUSCULAR VOLUME 93 fL (82-100); MONOCYTES # (AUTO) 2.1 K/uL (0.1-1.30); MONOCYTES % (AUTO) 4.5 % (2.0-12.0); NEUTROPHILS # (AUTO) 44.2 K/uL (1.8-8.9); NEUTROPHILS % (AUTO) 94.3 % (43.0-81.0); PLATELET COUNT (AUTO) 317 K/uL (150-450); RED BLOOD CELL COUNT(AUTO) 3.99 MIL/uL (4.0-5.2); RED CELL DISTRIBUTION WIDTH 17.8 % (11.5-15.0)
[2023-08-21 04:08] LABS: WHITE BLOOD COUNT (AUTO) 46.9 K/uL (4.3-11.0)
[2023-08-21 04:16] LABS: CALCIUM, SERUM 9.3 mg/dL (8.5-10.1); MAGNESIUM 2.3 mg/dL (1.8-2.4); PHOSPHORUS 3.8 mg/dL (2.5-4.9); POTASSIUM 3.4 mmol/L (3.5-5.1)
[2023-08-21 04:44] LABS: BASOPHILS % (MANUAL) 0 % (0.0-2.0); EOSINOPHILS % (MANUAL) 0 % (0-4); LYMPHOCYTES % (MANUAL) 1 % (16-48); MONOCYTES % (MANUAL) 5 % (0-11.0); NEUTROPHILS % (MANUAL) 94 (42-76); PLATELET ESTIMATE ADEQUATE
[2023-08-21] MEDS: FUROSEMIDE 40 MG/4 ML VIAL IV SCH (08:38)
[2023-08-21] MEDS: GABAPENTIN 100 MG CAPSULE PO SCH (08:38)
[2023-08-21] MEDS: DOCUSATE SODIUM 100 MG CAPSULE PO SCH (08:38)
[2023-08-21] MEDS: PANTOPRAZOLE 40 MG VIAL IV SCH (08:38)
[2023-08-21] MEDS: TRAMADOL HCL 50 MG TABLET PO SCH (08:39)
[2023-08-21] MEDS: ENOXAPARIN SODIUM 40 MG/0.4 ML DISP.SYRIN SQ SCH (08:44)
[2023-08-21] MEDS: LETROZOLE 2.5 MG TABLET PO SCH (08:47)
[2023-08-21] MEDS: POTASSIUM CHLORIDE 20 MEQ TAB.PRT.SR PO SCH (12:32)
[2023-08-21] MEDS: POTASSIUM CHLORIDE 20 MEQ TAB.PRT.SR PO ONE (12:35)
[2023-08-21] MEDS ORDERED: PIPERACILLIN /TAZOBACTAM 3.375 G in IV D5W 50 ML IV SCH (16:30)
[2023-08-21] MEDS: ZOSYN IVPB 3.375 G in IV D5W 50ml IV ONE (17:35)
[2023-08-21] MEDS: LEVOFLOXACIN 750 MG /D5W 150ML 750 MG in PREMIX 1 EA IV SCH (20:14)
[2023-08-21 20:21] LABS: APPEARANCE,URINE CLEAR (CLEAR); BILIRUBIN,URINE NEGATIVE (NEGATIVE); BLOOD, URINE 2+ Ery/uL (NEGATIVE); COLOR,URINE YELLOW (YELLOW); KETONES,URINE NEGATIVE (NEGATIVE); LEUKOCYTE ESTERASE ,URINE NEGATIVE (NEGATIVE); NITRITE, URINE NEGATIVE (NEGATIVE); PH,URINE 5.5 (5.0-8.0); PROTEIN,URINE 2+ mg/dl (NEGATIVE); UGLUCOSE NEGATIVE (NEGATIVE); UROBILINOGEN,URINE 0.2 EU/dL (0.2)
[2023-08-21] MEDS ORDERED: IV NS 0.9% 250 ML IV ONE (20:45)
[2023-08-21] MEDS ORDERED: IOHEXOL-350 100 ML VIAL IV ONE (20:45)
[2023-08-21 20:57] LABS: ADD URINE CULTURE NO; BACTERIA,URINE 1+ /HPF (None Seen)
[2023-08-21 20:58] LABS: SQUAMOUS EPITHELIAL CELL,UR 0-2 /HPF (None Seen)
[2023-08-21 20:59] LABS: HYALINE CASTS, URINE Moderate /LPF (None Seen); OTHER CASTS, URINE WBC CASTS 2+ /LPF (None Seen)
[2023-08-21] MEDS: ENOXAPARIN SODIUM 80 MG/0.8 ML DISP.SYRIN SQ SCH (20:59)
[2023-08-21 21:01] LABS: COARSE GRANULAR CASTS,URINE Few /LPF (None Seen)
[2023-08-21 21:02] LABS: FINE GRANULAR CASTS,URINE Few /LPF (None Seen); MUCUS,URINE Moderate /LPF (None Seen)
[2023-08-21] MEDS: methylPREDNISolone SOD SUCC 125 MG/2ML VIAL IV SCH (21:41)
[2023-08-21 21:50] LABS: D-DIMER 3.84 mg/L(FEU (0.17-0.50); INR 1.23 (0.91-1.10); PARTIAL THROMBOPLASTIN TIME 34.8 SEC (24.3-34.3); PROTHROMBIN TIME 12.9 SECS (9.2-11.1)
[2023-08-21] MEDS: GABAPENTIN 300 MG CAPSULE PO SCH (21:51)
[2023-08-21] MEDS: VANCOMYCIN HCL 1.25 GM in IV D5W 250 ML IV ONE (22:02)
[2023-08-21] MEDS: VANCOMYCIN 1 GM /D5W 250 ML PB IV ONE (22:03)
[2023-08-22] VITALS (29 sets, daily range): BP systolic 87–154; BP diastolic 57–97; TEMP 97.5–98.3; O2SAT 89–97
[2023-08-22] MEDS: PIPERACILLIN /TAZOBACTAM 3.375 G in IV D5W 100 ML IV SCH
[2023-08-22 04:43] LABS: BASOPHILS % (AUTO) 0.1 % (0.0-2.0); HEMATOCRIT 33 % (33-45); LYMPHOCYTES # (AUTO) 0.3 K/uL (0.8-4.8); LYMPHOCYTES % (AUTO) 0.9 % (20.0-44.0); MEAN CORPUSCULAR HEMOGLOBIN 31 PG (26.0-33.0); MEAN CORPUSCULAR HGB CONC 34 g/dl (31.0-36.0); MEAN CORPUSCULAR VOLUME 93 fL (82-100); MONOCYTES # (AUTO) 0.8 K/uL (0.1-1.30); MONOCYTES % (AUTO) 2.7 % (2.0-12.0); NEUTROPHILS # (AUTO) 29.8 K/uL (1.8-8.9); NEUTROPHILS % (AUTO) 96.3 % (43.0-81.0); PLATELET COUNT (AUTO) 284 K/uL (150-450); RED BLOOD CELL COUNT(AUTO) 3.53 MIL/uL (4.0-5.2)
[2023-08-22 05:01] LABS: D-DIMER 3.45 mg/L(FEU (0.17-0.50); INR 1.21 (0.91-1.10); PARTIAL THROMBOPLASTIN TIME 39.7 SEC (24.3-34.3); PROTHROMBIN TIME 12.7 SECS (9.2-11.1)
[2023-08-22 05:37] LABS: LACTIC ACID 2.2 mmol/L (0.4-2.0)
[2023-08-22 05:38] LABS: CALCIUM, SERUM 9.5 mg/dL (8.5-10.1); CARBON DIOXIDE 29 mmol/L (21-32); CHLORIDE 95 mmol/L (98-107); GLUCOSE 162 mg/dL (74-106); MAGNESIUM 2.3 mg/dL (1.8-2.4); PHOSPHORUS 3.7 mg/dL (2.5-4.9); POTASSIUM 3.6 mmol/L (3.5-5.1); SODIUM SERUM 133 mmol/L (136-145); UREA NITROGEN, BLOOD 18 mg/dL (7-18); WHITE BLOOD COUNT (AUTO) 30.9 K/uL (4.3-11.0)
[2023-08-22 06:25] LABS: ANISOCYTOSIS 1+; BAND % (MANUAL) 1 % (0.0-5.0); BASOPHILS % (MANUAL) 0 % (0.0-2.0); EOSINOPHILS % (MANUAL) 0 % (0-4); LYMPHOCYTES % (MANUAL) 1 % (16-48); MONOCYTES % (MANUAL) 2 % (0-11.0); NEUTROPHILS % (MANUAL) 96 (42-76); PLATELET ESTIMATE ADEQUATE
[2023-08-22] MEDS: PANTOPRAZOLE 40 MG TABLET.DR PO SCH (09:00)
[2023-08-22] MEDS: VANCOMYCIN 1 GM in IV D5W 250ml IV SCH (09:14)
[2023-08-22] MEDS ORDERED: LIDOCAINE 1% INJ 50 ML MDV IJ ONE (13:36)
[2023-08-22 16:22] LABS: PROTEIN, BODY FLUID 4.1 G/DL
[2023-08-22 20:18] LABS: WBC, BODY FLUID 1922 /cu. mm. (0-200)
[2023-08-22 20:26] LABS: TOTAL VOLUME,BODY FLUID 95 mL
[2023-08-22 20:32] LABS: APPEARANCE,SPUN,BODY FLUID SLIGHTLY HAZY (CLEAR)
[2023-08-22] MEDS: LEVOFLOXACIN 750 MG /D5W 150ML 750 MG in PREMIX 1 EA IV SCH (21:01)
[2023-08-22 22:49] LABS: MACROPHAGES, BODY FLUID 0
[2023-08-22 22:50] LABS: POLYNUCLEAR, BODY FLUID 89 % (0-25)
[2023-08-23] VITALS (24 sets, daily range): BP systolic 99–139; BP diastolic 62–92; TEMP 98.3–98.7; O2SAT 92–100
[2023-08-23 04:30] LABS: BASOPHILS % (AUTO) 0.1 % (0.0-2.0); HEMATOCRIT 31 % (33-45); HEMOGLOBIN 10.3 g/dL (11.5-14.8); LYMPHOCYTES # (AUTO) 0.3 K/uL (0.8-4.8); LYMPHOCYTES % (AUTO) 1.5 % (20.0-44.0); MEAN CORPUSCULAR HEMOGLOBIN 31 PG (26.0-33.0); MEAN CORPUSCULAR HGB CONC 33 g/dl (31.0-36.0); MEAN CORPUSCULAR VOLUME 92 fL (82-100); MONOCYTES # (AUTO) 1.1 K/uL (0.1-1.30); MONOCYTES % (AUTO) 5.6 % (2.0-12.0); NEUTROPHILS # (AUTO) 17.5 K/uL (1.8-8.9); NEUTROPHILS % (AUTO) 92.8 % (43.0-81.0); PLATELET COUNT (AUTO) 297 K/uL (150-450); RED BLOOD CELL COUNT(AUTO) 3.36 MIL/uL (4.0-5.2); RED CELL DISTRIBUTION WIDTH 17.6 % (11.5-15.0); WHITE BLOOD COUNT (AUTO) 18.8 K/uL (4.3-11.0)
[2023-08-23 04:39] LABS: D-DIMER 2.37 mg/L(FEU (0.17-0.50); INR 1.18 (0.91-1.10); PARTIAL THROMBOPLASTIN TIME 33.3 SEC (24.3-34.3); PROTHROMBIN TIME 12.4 SECS (9.2-11.1)
[2023-08-23 04:53] LABS: ALBUMIN 1.6 g/dL (3.4-5.0); BILIRUBIN,TOTAL 0.7 mg/dL (0.2-1.0); CALCIUM, SERUM 9.3 mg/dL (8.5-10.1); CREATININE 0.8 mg/dL (0.6-1.3); MAGNESIUM 2.5 mg/dL (1.8-2.4); PHOSPHORUS 3.7 mg/dL (2.5-4.9); TOTAL PROTEIN, SERUM 6.4 g/dL (6.4-8.2)
[2023-08-23] MEDS: POTASSIUM CHLORIDE 20 MEQ TAB.PRT.SR PO SCH (10:12)
[2023-08-23 12:07] LABS: CANCER AG, 15-3 60.2 U/mL (0.0-25.0)
[2023-08-24] VITALS (26 sets, daily range): BP systolic 104–152; BP diastolic 63–92; TEMP 97.6–98.4; O2SAT 87–99
[2023-08-24 05:12] LABS: BASOPHILS # (AUTO) 0.2 K/uL (0.0-0.2); BASOPHILS % (AUTO) 1.1 % (0.0-2.0); HEMATOCRIT 30 % (33-45); HEMOGLOBIN 10.1 g/dL (11.5-14.8); LYMPHOCYTES # (AUTO) 0.5 K/uL (0.8-4.8); LYMPHOCYTES % (AUTO) 2.4 % (20.0-44.0); MEAN CORPUSCULAR HEMOGLOBIN 31 PG (26.0-33.0); MEAN CORPUSCULAR HGB CONC 33 g/dl (31.0-36.0); MEAN CORPUSCULAR VOLUME 93 fL (82-100); MONOCYTES # (AUTO) 1.2 K/uL (0.1-1.30); MONOCYTES % (AUTO) 6.2 % (2.0-12.0); NEUTROPHILS # (AUTO) 17.3 K/uL (1.8-8.9); NEUTROPHILS % (AUTO) 90.3 % (43.0-81.0); PLATELET COUNT (AUTO) 277 K/uL (150-450); RED BLOOD CELL COUNT(AUTO) 3.26 MIL/uL (4.0-5.2); RED CELL DISTRIBUTION WIDTH 17.8 % (11.5-15.0); WHITE BLOOD COUNT (AUTO) 19.2 K/uL (4.3-11.0)
[2023-08-24 05:33] LABS: ALBUMIN 1.6 g/dL (3.4-5.0); BILIRUBIN,TOTAL 0.6 mg/dL (0.2-1.0); CREATININE 0.7 mg/dL (0.6-1.3); MAGNESIUM 2.5 mg/dL (1.8-2.4); PHOSPHORUS 3.4 mg/dL (2.5-4.9); POTASSIUM 3.9 mmol/L (3.5-5.1); TOTAL PROTEIN, SERUM 6.1 g/dL (6.4-8.2)
[2023-08-24 05:39] LABS: D-DIMER 2.03 mg/L(FEU (0.17-0.50); INR 1.13 (0.91-1.10); PARTIAL THROMBOPLASTIN TIME 32.2 SEC (24.3-34.3); PROTHROMBIN TIME 11.9 SECS (9.2-11.1)
[2023-08-24] MEDS: VANCOMYCIN HCL 1.25 GM in IV D5W 250 ML IV SCH (20:02)
[2023-08-25] VITALS (22 sets, daily range): BP systolic 119–147; BP diastolic 25–101; TEMP 97.2–98.6; O2SAT 88–97
[2023-08-25 05:12] LABS: BASOPHILS # (AUTO) 0.1 K/uL (0.0-0.2); BASOPHILS % (AUTO) 0.4 % (0.0-2.0); EOSINOPHILS % (AUTO) 0.1 % (0.0-6.0); HEMATOCRIT 28 % (33-45); HEMOGLOBIN 9.6 g/dL (11.5-14.8); LYMPHOCYTES # (AUTO) 0.7 K/uL (0.8-4.8); LYMPHOCYTES % (AUTO) 4.3 % (20.0-44.0); MEAN CORPUSCULAR HEMOGLOBIN 32 PG (26.0-33.0); MEAN CORPUSCULAR HGB CONC 34 g/dl (31.0-36.0); MEAN CORPUSCULAR VOLUME 93 fL (82-100); MONOCYTES # (AUTO) 1.2 K/uL (0.1-1.30); MONOCYTES % (AUTO) 7.2 % (2.0-12.0); NEUTROPHILS # (AUTO) 14.5 K/uL (1.8-8.9); PLATELET COUNT (AUTO) 308 K/uL (150-450); RED BLOOD CELL COUNT(AUTO) 3.02 MIL/uL (4.0-5.2); RED CELL DISTRIBUTION WIDTH 17.5 % (11.5-15.0); WHITE BLOOD COUNT (AUTO) 16.5 K/uL (4.3-11.0)
[2023-08-25 05:26] LABS: D-DIMER 2.5 mg/L(FEU (0.17-0.50); INR 1.15 (0.91-1.10); PARTIAL THROMBOPLASTIN TIME 31.8 SEC (24.3-34.3); PROTHROMBIN TIME 12.1 SECS (9.2-11.1)
[2023-08-25 05:41] LABS: ALBUMIN 1.6 g/dL (3.4-5.0); BILIRUBIN,TOTAL 0.6 mg/dL (0.2-1.0); CALCIUM, SERUM 8.7 mg/dL (8.5-10.1); CREATININE 0.8 mg/dL (0.6-1.3); MAGNESIUM 2.4 mg/dL (1.8-2.4); PHOSPHORUS 3.1 mg/dL (2.5-4.9); POTASSIUM 3.5 mmol/L (3.5-5.1); TOTAL PROTEIN, SERUM 5.9 g/dL (6.4-8.2)
[2023-08-25] MEDS: CEFTRIAXONE 1 G in IV D5W 50 ML IV SCH (12:33)
== END 2023-08-25 20:33 | disposition short-term general hospital (02) | DRG 871 ==
LOC: ER 20:29 → ICU 22:07
PROC: 5A09457 Assistance with Respiratory Ventilation, 24-96 Consecutive Hours, Continuous Positive Airway Pressure (ICD-10-PCS; 2023-08-20)
PROC: 0W9B30Z Drainage of Left Pleural Cavity with Drainage Device, Percutaneous Approach (ICD-10-PCS; principal; 2023-08-22)
DX: A41.9 Sepsis, unspecified organism (principal); I21.A1 Myocardial infarction type 2; J18.9 Pneumonia, unspecified organism; J96.01 Acute respiratory failure with hypoxia; J86.9 Pyothorax without fistula; E87.20 Acidosis, unspecified; C79.51 Secondary malignant neoplasm of bone; J81.1 Chronic pulmonary edema; I82.432 Acute embolism and thrombosis of left popliteal vein; J90 Pleural effusion, not elsewhere classified; I82.812 Embolism and thrombosis of superficial veins of left lower extremity; C50.919 Malignant neoplasm of unspecified site of unspecified female breast; Z20.822 Contact with and (suspected) exposure to COVID-19; Z92.21 Personal history of antineoplastic chemotherapy; Z79.01 Long term (current) use of anticoagulants
CPT/HCPCS: 36415; 71045-TC; 76604-TC; 80048-TC; 80053-TC; 80076-TC; 80202-TC; 81001; 82378; 83605-TC; 83735-TC; 83880; 84100-TC; 84484-TC; 85025-TC; 85378-TC; 85396; 85730-TC; 86300; 87040-TC; 87081-TC; 87086-TC; 87102-TC; 89051-TC; 93307-TC; 93970-TC; 94762-TC; 94799-TC; A4216; A4223; G0378; J0696; J1650; J1940; J1956; J2470; J2543; J2919; J3370; J3490; J7050; J7060; Q9967

== ENCOUNTER 2023-10-03 14:57 | Inpatient (IN) | payer BC ==
[2023-10-02] VITALS: BP 115/83; TEMP 97.5; O2SAT 98
[~2023-10-03] VITALS: Ht 170.2 cm; Wt 74.8 kg
[~2023-10-03 14:57] MED LIST changes: +GABA-532 PO; -IBUP-1957 PO
[2023-10-03] MEDS ORDERED: ZOLPIDEM TARTRATE 5 MG TABLET PO PRN (23:30)
[2023-10-03] MEDS ORDERED: ONDANSETRON HCL/PF 4 MG/2 ML VIAL IVP PRN (23:30)
[2023-10-03] MEDS ORDERED: ACETAMINOPHEN 325 MG TABLET PO PRN (23:30)
[2023-10-03] MEDS ORDERED: MAG HYDROX/AL HYDROX/SIMETH 30 ML UDC PO PRN (23:30)
[2023-10-03] MEDS ORDERED: Z GUARD REMEDY 4 OZ OINT TP PRN (23:30)
[2023-10-04] VITALS (12 sets, daily range): BP systolic 113–147; BP diastolic 77–96; TEMP 97.3–97.7; O2SAT 94–99
[2023-10-04] MEDS: ENOXAPARIN SODIUM 40 MG/0.4 ML DISP.SYRIN SQ SCH (00:52)
[2023-10-04] MEDS: IPRATROPIUM NEB FS 0.5 MG/2.5 ML AMPUL.NEB NEB SCH (01:30)
[2023-10-04] MEDS: HYDROMORPHONE HCL 2 MG TABLET PO PRN ×2 (01:53→14:51)
[2023-10-04 06:49] LABS: BASOPHILS % (AUTO) 0.2 % (0.0-2.0); EOSINOPHILS # (AUTO) 0.5 K/uL (0.0-0.7); EOSINOPHILS % (AUTO) 2.8 % (0.0-6.0); HEMATOCRIT 36 % (33-45); HEMOGLOBIN 11.3 g/dL (11.5-14.8); LYMPHOCYTES # (AUTO) 1.6 K/uL (0.8-4.8); LYMPHOCYTES % (AUTO) 9.7 % (20.0-44.0); MEAN CORPUSCULAR HEMOGLOBIN 31 PG (26.0-33.0); MEAN CORPUSCULAR HGB CONC 32 g/dl (31.0-36.0); MEAN CORPUSCULAR VOLUME 99 fL (82-100); MONOCYTES # (AUTO) 1.1 K/uL (0.1-1.30); NEUTROPHILS # (AUTO) 13.1 K/uL (1.8-8.9); NEUTROPHILS % (AUTO) 80.3 % (43.0-81.0); PLATELET COUNT (AUTO) 157 K/uL (150-450); RED BLOOD CELL COUNT(AUTO) 3.62 MIL/uL (4.0-5.2); RED CELL DISTRIBUTION WIDTH 19.4 % (11.5-15.0); WHITE BLOOD COUNT (AUTO) 16.4 K/uL (4.3-11.0)
[2023-10-04 07:27] LABS: ALBUMIN 2.3 g/dL (3.4-5.0); BILIRUBIN,DIRECT 0.2 mg/dL (0.0-0.2); BILIRUBIN,TOTAL 0.6 mg/dL (0.2-1.0); CALCIUM, SERUM 9.2 mg/dL (8.5-10.1); CREATININE 0.5 mg/dL (0.6-1.3); MAGNESIUM 2.1 mg/dL (1.8-2.4); PHOSPHORUS 3.5 mg/dL (2.5-4.9); POTASSIUM 3.3 mmol/L (3.5-5.1); TOTAL PROTEIN, SERUM 5.9 g/dL (6.4-8.2)
[2023-10-04 07:41] LABS: THYROID STIMULATING HORMONE 4.51 uIU/mL (0.358-3.74)
[2023-10-04] MEDS: BUDESONIDE RESPULE INH 0.25 MG/2 ML AMPUL.NEB NEB SCH (08:21)
[2023-10-04] MEDS: SULFAMETH/TRIMETH 800/160 MG 1 UDTAB TABLET PO SCH (08:32)
[2023-10-04] MEDS: predniSONE 20 MG TABLET PO SCH (08:32)
[2023-10-04] MEDS: AMIODARONE HCL 200 MG TABLET PO SCH ×2 (08:33→17:06)
[2023-10-04] MEDS: CEFTRIAXONE 2 G in IV D5W 100 ML IV SCH (08:33)
[2023-10-04] MEDS: FUROSEMIDE 20 MG/2 ML VIAL IV SCH (08:34)
[2023-10-04] MEDS: PANTOPRAZOLE 40 MG TABLET.DR PO SCH (08:37)
[2023-10-04] MEDS: METOPROLOL TARTRATE 25 MG TABLET PO SCH (08:38)
[2023-10-04] MEDS ORDERED: ENOX80DI9 SQ (09:51)
[2023-10-04] MEDS ORDERED: AMIO200T5 PO (09:51)
[2023-10-04] MEDS ORDERED: PANT40TA49 PO (09:51)
[2023-10-04] MEDS ORDERED: FURO10VI IV (09:51)
[2023-10-04] MEDS ORDERED: METO25TA6 PO (09:51)
[2023-10-04] MEDS ORDERED: ONDA8TAB65 PO (09:51)
[2023-10-04] MEDS ORDERED: OLAN10TA3 PO (09:51)
[2023-10-04] MEDS ORDERED: PRED50TA PO (09:51)
[2023-10-04] MEDS ORDERED: DEXA4TAB PO (09:51)
[2023-10-04] MEDS ORDERED: BUDE0.5A4 IH (09:51)
[2023-10-04] MEDS ORDERED: GABA300C PO (09:51)
[2023-10-04] MEDS ORDERED: MULT-213 PO (09:51)
[2023-10-04] MEDS ORDERED: POLY17PO4 PO (09:51)
[2023-10-04] MEDS ORDERED: IPRA0.2S49 IH (09:51)
[2023-10-04] MEDS ORDERED: QUET50TA PO (09:51)
[2023-10-04] MEDS ORDERED: HYDR2TAB7 PO (09:51)
[2023-10-04] MEDS ORDERED: DOCU100C36 PO (09:51)
[2023-10-04] MEDS ORDERED: GABA-532 PO (09:51)
[2023-10-04] MEDS ORDERED: SULF1TAB48 PO (09:51)
[2023-10-04] MEDS ORDERED: DOCUSATE SODIUM 100 MG CAPSULE PO PRN (10:00)
[2023-10-04] MEDS ORDERED: TRAMADOL HCL 50 MG TABLET PO PRN (10:00)
[2023-10-04] MEDS ORDERED: OLANZAPINE 10 MG TABLET PO SCH (10:00)
[2023-10-04] MEDS: POTASSIUM CHLORIDE 20 MEQ TAB.PRT.SR PO SCH (10:09)
[2023-10-04] MEDS ORDERED: IPRATROPIUM NEB FS 0.5 MG/2.5 ML AMPUL.NEB IH SCH (13:00)
[2023-10-04] MEDS ORDERED: BUDESONIDE RESPULE INH 0.5 MG/2 ML AMPUL.NEB IH SCH (17:00)
[2023-10-04] MEDS: QUETIAPINE FUMARATE 25 MG TABLET PO SCH (17:06)
[2023-10-04] MEDS: GABAPENTIN 100 MG CAPSULE PO SCH (17:06)
[2023-10-04] MEDS: BUDESONIDE RESPULE INH 0.5 MG/2 ML AMPUL.NEB NEB SCH (19:59)
[2023-10-04] MEDS: GABAPENTIN 300 MG CAPSULE PO SCH (21:13)
[2023-10-05] VITALS (12 sets, daily range): BP systolic 108–143; BP diastolic 74–96; TEMP 97.4–98.2; O2SAT 93–99
[2023-10-05 07:06] LABS: BASOPHILS % (AUTO) 0.2 % (0.0-2.0); EOSINOPHILS # (AUTO) 0.3 K/uL (0.0-0.7); EOSINOPHILS % (AUTO) 2.7 % (0.0-6.0); HEMATOCRIT 33 % (33-45); HEMOGLOBIN 10.8 g/dL (11.5-14.8); LYMPHOCYTES # (AUTO) 1.2 K/uL (0.8-4.8); LYMPHOCYTES % (AUTO) 9.6 % (20.0-44.0); MEAN CORPUSCULAR HEMOGLOBIN 32 PG (26.0-33.0); MEAN CORPUSCULAR HGB CONC 33 g/dl (31.0-36.0); MEAN CORPUSCULAR VOLUME 98 fL (82-100); MONOCYTES # (AUTO) 0.9 K/uL (0.1-1.30); NEUTROPHILS # (AUTO) 9.8 K/uL (1.8-8.9); NEUTROPHILS % (AUTO) 80.5 % (43.0-81.0); PLATELET COUNT (AUTO) 127 K/uL (150-450); RED BLOOD CELL COUNT(AUTO) 3.38 MIL/uL (4.0-5.2); RED CELL DISTRIBUTION WIDTH 19.2 % (11.5-15.0); WHITE BLOOD COUNT (AUTO) 12.2 K/uL (4.3-11.0)
[2023-10-05 07:23] LABS: CALCIUM, SERUM 9.6 mg/dL (8.5-10.1); CREATININE 0.5 mg/dL (0.6-1.3); POTASSIUM 3.1 mmol/L (3.5-5.1)
[2023-10-05] MEDS: POLYETHYLENE GLYCOL 3350 17 GM POWD.PACK PO SCH (08:44)
[2023-10-05] MEDS: PANTOPRAZOLE 40 MG TABLET.DR PO SCH (08:45)
[2023-10-05] MEDS: MULTIVIT W/MINERALS 1 TAB TABLET PO SCH (08:46)
[2023-10-05] MEDS ORDERED: ENSURE ENLIVE 237 ML LIQUID (VANILLA) PO SCH (09:00)
[2023-10-05] MEDS: POTASSIUM CHLORIDE 20 MEQ TAB.PRT.SR PO SCH (12:01)
[2023-10-05] MEDS: FUROSEMIDE 20 MG/2 ML VIAL IV SCH (17:18)
[2023-10-06] VITALS (9 sets, daily range): BP systolic 108–126; BP diastolic 63–84; TEMP 96.7–97.9; O2SAT 96–100
[2023-10-06 07:05] LABS: BASOPHILS % (AUTO) 0.1 % (0.0-2.0); EOSINOPHILS # (AUTO) 0.3 K/uL (0.0-0.7); EOSINOPHILS % (AUTO) 1.8 % (0.0-6.0); HEMATOCRIT 33 % (33-45); HEMOGLOBIN 10.6 g/dL (11.5-14.8); LYMPHOCYTES % (AUTO) 6.5 % (20.0-44.0); MEAN CORPUSCULAR HEMOGLOBIN 32 PG (26.0-33.0); MEAN CORPUSCULAR HGB CONC 32 g/dl (31.0-36.0); MEAN CORPUSCULAR VOLUME 99 fL (82-100); MONOCYTES # (AUTO) 0.9 K/uL (0.1-1.30); MONOCYTES % (AUTO) 6.2 % (2.0-12.0); NEUTROPHILS # (AUTO) 12.5 K/uL (1.8-8.9); NEUTROPHILS % (AUTO) 85.4 % (43.0-81.0); PLATELET COUNT (AUTO) 110 K/uL (150-450); RED BLOOD CELL COUNT(AUTO) 3.32 MIL/uL (4.0-5.2); RED CELL DISTRIBUTION WIDTH 19.6 % (11.5-15.0); WHITE BLOOD COUNT (AUTO) 14.7 K/uL (4.3-11.0)
[2023-10-06 07:24] LABS: CALCIUM, SERUM 9.2 mg/dL (8.5-10.1); CREATININE 0.5 mg/dL (0.6-1.3); POTASSIUM 4.1 mmol/L (3.5-5.1)
[2023-10-06 08:10] LABS: CANCER AG, 15-3 93.3 U/mL (0.0-25.0)
[2023-10-06] MEDS: MAGNESIUM HYDROXIDE 30 ML UDC PO PRN (18:37)
[2023-10-07] VITALS (14 sets, daily range): BP systolic 108–132; BP diastolic 67–78; TEMP 97.5–98.6; O2SAT 98–100
[2023-10-07 07:36] LABS: BASOPHILS # (AUTO) 0.1 K/uL (0.0-0.2); BASOPHILS % (AUTO) 0.4 % (0.0-2.0); EOSINOPHILS # (AUTO) 0.4 K/uL (0.0-0.7); EOSINOPHILS % (AUTO) 2.7 % (0.0-6.0); HEMATOCRIT 34 % (33-45); HEMOGLOBIN 10.9 g/dL (11.5-14.8); LYMPHOCYTES # (AUTO) 1.2 K/uL (0.8-4.8); LYMPHOCYTES % (AUTO) 8.2 % (20.0-44.0); MEAN CORPUSCULAR HEMOGLOBIN 32 PG (26.0-33.0); MEAN CORPUSCULAR HGB CONC 32 g/dl (31.0-36.0); MEAN CORPUSCULAR VOLUME 99 fL (82-100); MONOCYTES % (AUTO) 7.1 % (2.0-12.0); NEUTROPHILS # (AUTO) 11.6 K/uL (1.8-8.9); NEUTROPHILS % (AUTO) 81.6 % (43.0-81.0); PLATELET COUNT (AUTO) 114 K/uL (150-450); RED BLOOD CELL COUNT(AUTO) 3.43 MIL/uL (4.0-5.2); RED CELL DISTRIBUTION WIDTH 19.3 % (11.5-15.0); WHITE BLOOD COUNT (AUTO) 14.2 K/uL (4.3-11.0)
[2023-10-07 07:53] LABS: CALCIUM, SERUM 9.2 mg/dL (8.5-10.1); CREATININE 0.4 mg/dL (0.6-1.3); POTASSIUM 3.9 mmol/L (3.5-5.1)
[2023-10-07] MEDS ORDERED: NA PHOS,M-B/NA PHOS,DI-BA 1 EA ENEMA RC PRN (10:30)
[2023-10-07] MEDS: NA PHOS,M-B/NA PHOS,DI-BA 1 EA ENEMA RC ONE (11:53)
[2023-10-08] VITALS (8 sets, daily range): BP systolic 107–130; BP diastolic 61–74; TEMP 97.7–98.4; O2SAT 95–100
[2023-10-08 07:24] LABS: BASOPHILS % (AUTO) 0.2 % (0.0-2.0); EOSINOPHILS # (AUTO) 0.4 K/uL (0.0-0.7); EOSINOPHILS % (AUTO) 2.8 % (0.0-6.0); HEMATOCRIT 35 % (33-45); HEMOGLOBIN 11.3 g/dL (11.5-14.8); LYMPHOCYTES # (AUTO) 1.1 K/uL (0.8-4.8); LYMPHOCYTES % (AUTO) 7.4 % (20.0-44.0); MEAN CORPUSCULAR HEMOGLOBIN 32 PG (26.0-33.0); MEAN CORPUSCULAR HGB CONC 32 g/dl (31.0-36.0); MEAN CORPUSCULAR VOLUME 100 fL (82-100); MONOCYTES # (AUTO) 1.2 K/uL (0.1-1.30); MONOCYTES % (AUTO) 7.7 % (2.0-12.0); NEUTROPHILS # (AUTO) 12.6 K/uL (1.8-8.9); NEUTROPHILS % (AUTO) 81.9 % (43.0-81.0); PLATELET COUNT (AUTO) 118 K/uL (150-450); RED BLOOD CELL COUNT(AUTO) 3.53 MIL/uL (4.0-5.2); WHITE BLOOD COUNT (AUTO) 15.4 K/uL (4.3-11.0)
[2023-10-08 08:43] LABS: CALCIUM, SERUM 9.1 mg/dL (8.5-10.1); CREATININE 0.3 mg/dL (0.6-1.3); POTASSIUM 4.2 mmol/L (3.5-5.1)
[2023-10-08] MEDS: FUROSEMIDE 20 MG/2 ML VIAL IV SCH (09:03)
[2023-10-08] MEDS: AMIODARONE HCL 200 MG TABLET PO SCH (09:06)
[2023-10-08] MEDS: DOCUSATE SODIUM 100 MG CAPSULE PO SCH (09:07)
[2023-10-08] MEDS: QUETIAPINE FUMARATE 25 MG TABLET PO SCH (09:41)
[2023-10-09] MEDS ORDERED: predniSONE 20 MG TABLET PO SCH (09:00)
== END 2023-10-08 19:35 | DRG 205 ==
LOC: MEDSG1 22:06 → TELE1 23:11
PROVIDERS: ADMIT Nurse Practitioner Family; ATTEND Nurse Practitioner Acute Care
DX: J70.4 Drug-induced interstitial lung disorders, unspecified (principal); J86.9 Pyothorax without fistula; J96.01 Acute respiratory failure with hypoxia; C79.51 Secondary malignant neoplasm of bone; I82.4Z2 Acute embolism and thrombosis of unspecified deep veins of left distal lower extremity; J90 Pleural effusion, not elsewhere classified; E44.0 Moderate protein-calorie malnutrition; J94.2 Hemothorax; C50.919 Malignant neoplasm of unspecified site of unspecified female breast; T45.1X5A Adverse effect of antineoplastic and immunosuppressive drugs, initial encounter; Y92.9 Unspecified place or not applicable; Z95.828 Presence of other vascular implants and grafts; I48.91 Unspecified atrial fibrillation; I25.2 Old myocardial infarction; D64.9 Anemia, unspecified; E88.09 Other disorders of plasma-protein metabolism, not elsewhere classified; G89.29 Other chronic pain; I10 Essential (primary) hypertension; Z79.811 Long term (current) use of aromatase inhibitors; Z88.6 Allergy status to analgesic agent; Z79.51 Long term (current) use of inhaled steroids; Z79.899 Other long term (current) drug therapy; Z98.890 Other specified postprocedural states; Z74.09 Other reduced mobility
CPT/HCPCS: 36415; 71045-TC; 80048-TC; 80061-TC; 80076-TC; 82378; 82607-TC; 82728-TC; 83540-TC; 83605-TC; 83735-TC; 84100-TC; 84439-TC; 84443-TC; 85025-TC; 86300; 87040-TC; 87081-TC; 94760-TC; 94799-TC; 97110-TC; 97530-TC; A4223; G0378; J0696; J1650; J1940; J7050; J7060

== ENCOUNTER 2023-12-25 06:33 | Inpatient (IN) | payer BC ==
[2023-12-25] VITALS (22 sets, daily range): BP systolic 107–157; BP diastolic 77–96; TEMP 97.9–98.1; O2SAT 90–98
[~2023-12-25] VITALS: Ht 170.2 cm; Wt 77.1 kg
[~2023-12-25 06:33] MED LIST changes: +AMIO200T5 PO; +BUDE0.5A4 IH; +DEXA4TAB PO; -DOXY100T2 PO; +FURO10VI IV; -GABA100C PO; +GABA300C PO; +HYDR2TAB7 PO; +IPRA0.2S49 IH; -LETR2.5T PO; +METO25TA6 PO; +MULT-213 PO; +OLAN10TA3 PO; +ONDA8TAB65 PO; +POLY17PO4 PO; +PRED50TA PO; +QUET50TA PO; +SULF1TAB48 PO
[2023-12-25] MEDS ORDERED: VANCOMYCIN 1 GM /D5W 250 ML PB IV ONE (06:54)
[2023-12-25] MEDS: VANCOMYCIN 1 GM in IV D5W 250 ML IV ONE (07:02)
[2023-12-25] MEDS: FUROSEMIDE 40 MG/4 ML VIAL IV ONE (07:02)
[2023-12-25] MEDS ORDERED: PIPERACI/TAZO 3.375GM/D5W 50ML PB IV ONE (07:14)
[2023-12-25 07:15] LABS: CALCIUM, SERUM 9.9 mg/dL (8.5-10.1); CARBON DIOXIDE 27 mmol/L (21-32); CHLORIDE 101 mmol/L (98-107); CREATININE 0.8 mg/dL (0.6-1.3); GLUCOSE 123 mg/dL (74-106); SODIUM SERUM 143 mmol/L (136-145); UREA NITROGEN, BLOOD 12 mg/dL (7-18)
[2023-12-25] MEDS: PIPERACILLIN /TAZOBACTAM 3.375 G in IV D5W 50 ML IV ONE (07:15)
[2023-12-25 07:17] LABS: BASOPHILS # (AUTO) 0.1 K/uL (0.0-0.2); BASOPHILS % (AUTO) 0.5 % (0.0-2.0); EOSINOPHILS # (AUTO) 0.3 K/uL (0.0-0.7); EOSINOPHILS % (AUTO) 1.4 % (0.0-6.0); HEMATOCRIT 43 % (33-45); HEMOGLOBIN 14.2 g/dL (11.5-14.8); LYMPHOCYTES # (AUTO) 2.3 K/uL (0.8-4.8); LYMPHOCYTES % (AUTO) 12.5 % (20.0-44.0); MEAN CORPUSCULAR HEMOGLOBIN 29 PG (26.0-33.0); MEAN CORPUSCULAR HGB CONC 33 g/dl (31.0-36.0); MEAN CORPUSCULAR VOLUME 88 fL (82-100); MONOCYTES # (AUTO) 1.3 K/uL (0.1-1.30); MONOCYTES % (AUTO) 7.4 % (2.0-12.0); NEUTROPHILS # (AUTO) 14.2 K/uL (1.8-8.9); NEUTROPHILS % (AUTO) 78.2 % (43.0-81.0); PLATELET COUNT (AUTO) 65 K/uL (150-450); RED BLOOD CELL COUNT(AUTO) 4.89 MIL/uL (4.0-5.2); RED CELL DISTRIBUTION WIDTH 15.8 % (11.5-15.0); WHITE BLOOD COUNT (AUTO) 18.1 K/uL (4.3-11.0)
[2023-12-25 07:21] LABS: INR 1.18 (0.91-1.10); PARTIAL THROMBOPLASTIN TIME 26.5 SEC (24.3-34.3); PROTHROMBIN TIME 12.4 SECS (9.2-11.1)
[2023-12-25 07:23] LABS: LACTIC ACID 3.7 mmol/L (0.4-2.0)
[2023-12-25 07:29] LABS: ALANINE AMINOTRANSFERASE 43 U/L (12-78); ALBUMIN 3.6 g/dL (3.4-5.0); ALKALINE PHOSPHATASE 242 U/L (46-116); ASPARTATE AMINOTRANSFERASE 219 U/L (15-37); BILIRUBIN,DIRECT 0.3 mg/dL (0.0-0.2); BILIRUBIN,TOTAL 1.3 mg/dL (0.2-1.0); NT-PRO BNP 10096 pg/mL (0-125); TOTAL PROTEIN, SERUM 7.7 g/dL (6.4-8.2)
[2023-12-25] MEDS ORDERED: POTASSIUM CHLORIDE 20 MEQ POWDER PACKET ONE (08:04)
[2023-12-25] MEDS ORDERED: ASPIRIN 325 MG TABLET ONE (08:04)
[2023-12-25] MEDS: POTASSIUM CHLORIDE 20 MEQ POWDER PACKET PO ONE (08:31)
[2023-12-25] MEDS: ASPIRIN 325 MG TABLET PO ONE (08:31)
[2023-12-25 08:35] LABS: BASOPHILS % (MANUAL) 1 % (0.0-2.0); EOSINOPHILS % (MANUAL) 0 % (0-4); LYMPHOCYTES % (MANUAL) 10 % (16-48); MONOCYTES % (MANUAL) 4 % (0-11.0); NEUTROPHILS % (MANUAL) 85 (42-76); PLATELET ESTIMATE DECREASED
[2023-12-25] MEDS ORDERED: FLUT1BLS13 INH (08:55)
[2023-12-25] MEDS ORDERED: ALBU6.7H9 IH (08:55)
[2023-12-25] MEDS ORDERED: FURO20TA4 PO (08:55)
[2023-12-25] MEDS ORDERED: APIX5TAB PO (08:55)
[2023-12-25] MEDS ORDERED: EXEM25TA5 PO (08:55)
[2023-12-25] MEDS ORDERED: ONDA4TAB11 PO (08:55)
[2023-12-25] MEDS ORDERED: CALC-34 PO (08:56)
[2023-12-25] MEDS: methylPREDNISolone SOD SUCC 125 MG/2ML VIAL IV SCH (10:00)
[2023-12-25] MEDS ORDERED: MAG HYDROX/AL HYDROX/SIMETH 30 ML UDC PO PRN (10:30)
[2023-12-25] MEDS ORDERED: Z GUARD REMEDY 4 OZ OINT TP PRN (10:30)
[2023-12-25] MEDS ORDERED: ACETAMINOPHEN 325 MG TABLET PO PRN (10:30)
[2023-12-25] MEDS ORDERED: ALBUTEROL FS 2.5 MG/3 ML VIAL.NEB NEB PRN (11:00)
[2023-12-25 11:01] LABS: ABG BASE EXCESS 1.1 mmol/L (-2.0-3.0); ABG OXYGEN SATURATION 99.3 % (94.0-98.0); ABG PCO2 42.8 mmHg (32.0-45.0); ABG PH 7.403 (7.350-7.450); ABG PO2 223.1 mmHg (83.0-108.0); ABG TOTAL HEMOGLOBIN 14.8 G/dL (12.0-16.0); COHb 0.3 % (0.5-1.5); MetHb 0.4 % (0.0-1.5); O2Hb 98.6 % (94.0-97.0); SITE, ABG RIGHT RADIAL
[2023-12-25] MEDS ORDERED: PIPERACILLIN /TAZOBACTAM 4.5 G in IV D5W 50 ML IV SCH (12:00)
[2023-12-25] MEDS: IV NS 0.9% 1,000 ML IV PRN (12:10)
[2023-12-25] MEDS: ZOSYN IVPB 3.375 G in IV D5W 50ml IV SCH (12:30)
[2023-12-25] MEDS ORDERED: CEFEPIME 2 GM in IV D5W 100 ML IV SCH (13:00)
[2023-12-25] MEDS: FLUTICASONE/VILANTEROL 1 EACH BLST.W.DEV IH SCH (14:27)
[2023-12-25] MEDS: METOPROLOL TARTRATE 25 MG TABLET PO SCH (15:40)
[2023-12-25] MEDS ORDERED: FLUTICASONE/SALMETEROL 1 DISK IH SCH (17:00)
[2023-12-25] MEDS: ENOXAPARIN SODIUM 80 MG/0.8 ML DISP.SYRIN SQ SCH (17:23)
[2023-12-25] MEDS: VANCOMYCIN 1 GM in IV D5W 250ml IV SCH (18:18)
[2023-12-25] MEDS: DOCUSATE SODIUM 100 MG CAPSULE PO SCH (21:15)
[2023-12-25] MEDS: GABAPENTIN 300 MG CAPSULE PO SCH (21:15)
[2023-12-25] MEDS: CEFEPIME 2 GM in IV D5W 100 ML IV SCH (21:15)
[2023-12-25] MEDS: HYDROMORPHONE 1 MG/1 ML DISP.SYRIN IV PRN (22:06)
[2023-12-25 22:20] LABS: APPEARANCE,URINE CLEAR (CLEAR); BILIRUBIN,URINE NEGATIVE (NEGATIVE); BLOOD, URINE NEGATIVE Ery/uL (NEGATIVE); COLOR,URINE YELLOW (YELLOW); KETONES,URINE TRACE mg/dL (NEGATIVE); LEUKOCYTE ESTERASE ,URINE 1+ (NEGATIVE); NITRITE, URINE POSITIVE (NEGATIVE); PROTEIN,URINE NEGATIVE (NEGATIVE); UGLUCOSE NEGATIVE (NEGATIVE); UROBILINOGEN,URINE 0.2 EU/dL (0.2)
[2023-12-25 22:29] LABS: ADD URINE CULTURE YES; BACTERIA,URINE 1+ /HPF (None Seen); RBC,URINE 0-2 /HPF (0-2)
[2023-12-26] VITALS (42 sets, daily range): BP systolic 108–145; BP diastolic 72–99; TEMP 97.4–98.3; O2SAT 81–99
[2023-12-26 04:27] LABS: BASOPHILS % (AUTO) 0.3 % (0.0-2.0); EOSINOPHILS % (AUTO) 0.2 % (0.0-6.0); HEMATOCRIT 37 % (33-45); HEMOGLOBIN 12.3 g/dL (11.5-14.8); LYMPHOCYTES % (AUTO) 5.9 % (20.0-44.0); MEAN CORPUSCULAR HEMOGLOBIN 30 PG (26.0-33.0); MEAN CORPUSCULAR HGB CONC 34 g/dl (31.0-36.0); MEAN CORPUSCULAR VOLUME 89 fL (82-100); MONOCYTES # (AUTO) 0.4 K/uL (0.1-1.30); MONOCYTES % (AUTO) 2.3 % (2.0-12.0); NEUTROPHILS # (AUTO) 16.3 K/uL (1.8-8.9); NEUTROPHILS % (AUTO) 91.3 % (43.0-81.0); PLATELET COUNT (AUTO) 51 K/uL (150-450); RED BLOOD CELL COUNT(AUTO) 4.13 MIL/uL (4.0-5.2); WHITE BLOOD COUNT (AUTO) 17.8 K/uL (4.3-11.0)
[2023-12-26 05:12] LABS: ALBUMIN 2.9 g/dL (3.4-5.0); BILIRUBIN,TOTAL 0.7 mg/dL (0.2-1.0); CALCIUM, SERUM 8.9 mg/dL (8.5-10.1); CREATININE 0.7 mg/dL (0.6-1.3); MAGNESIUM 1.9 mg/dL (1.8-2.4); PHOSPHORUS 4.8 mg/dL (2.5-4.9); POTASSIUM 4.2 mmol/L (3.5-5.1); TOTAL PROTEIN, SERUM 6.6 g/dL (6.4-8.2)
[2023-12-26 05:31] LABS: LYMPHOCYTES % (MANUAL) 5 % (16-48); MONOCYTES % (MANUAL) 2 % (0-11.0); NEUTROPHILS % (MANUAL) 93 (42-76)
[2023-12-26 05:32] LABS: ANISOCYTOSIS 2+; PLATELET ESTIMATE DECREASED
[2023-12-26 05:44] LABS: ABG OXYGEN SATURATION 95.2 % (94.0-98.0); ABG PCO2 40.9 mmHg (32.0-45.0); ABG PH 7.385 (7.350-7.450); ABG PO2 85.8 mmHg (83.0-108.0); COHb 0.3 % (0.5-1.5); MetHb 0.3 % (0.0-1.5); O2Hb 94.6 % (94.0-97.0); SITE, ABG RIGHT RADIAL
[2023-12-26] MEDS ORDERED: SULFAMETHOXAZOLE/TRIMETHOPRIM 20 ML in IV D5W 500 ML IV SCH (07:00)
[2023-12-26] MEDS: SULFAMETHOXAZOLE/TRIMETHOPRIM 25 ML in IV D5W 500 ML IV SCH (09:22)
[2023-12-26] MEDS: MULTIVIT W/MINERALS 1 TAB TABLET PO SCH (09:22)
[2023-12-26] MEDS ORDERED: CT SWABBABLE VALVE TRANS SET 1 EA INFUS.SET MC ONE (09:57)
[2023-12-26] MEDS ORDERED: IOHEXOL-350 100 ML VIAL IV ONE (09:57)
[2023-12-26] MEDS ORDERED: IV NS 0.9% 250 ML IV ONE (09:58)
[2023-12-27] VITALS (52 sets, daily range): BP systolic 47–154; BP diastolic 23–113; TEMP 97.3–98; O2SAT 90–98
[2023-12-27 04:32] LABS: BASOPHILS % (AUTO) 0.1 % (0.0-2.0); EOSINOPHILS % (AUTO) 0.1 % (0.0-6.0); HEMATOCRIT 37 % (33-45); HEMOGLOBIN 11.9 g/dL (11.5-14.8); LYMPHOCYTES # (AUTO) 0.8 K/uL (0.8-4.8); MEAN CORPUSCULAR HEMOGLOBIN 29 PG (26.0-33.0); MEAN CORPUSCULAR HGB CONC 33 g/dl (31.0-36.0); MEAN CORPUSCULAR VOLUME 90 fL (82-100); MONOCYTES # (AUTO) 1.4 K/uL (0.1-1.30); MONOCYTES % (AUTO) 5.3 % (2.0-12.0); NEUTROPHILS % (AUTO) 91.5 % (43.0-81.0); PLATELET COUNT (AUTO) 60 K/uL (150-450); RED BLOOD CELL COUNT(AUTO) 4.06 MIL/uL (4.0-5.2); RED CELL DISTRIBUTION WIDTH 15.8 % (11.5-15.0); WHITE BLOOD COUNT (AUTO) 26.2 K/uL (4.3-11.0)
[2023-12-27 07:55] LABS: BAND % (MANUAL) 2 % (0.0-5.0); BASOPHILS % (MANUAL) 1 % (0.0-2.0); EOSINOPHILS % (MANUAL) 0 % (0-4); LYMPHOCYTES % (MANUAL) 3 % (16-48); METAMYELOCYTES % 1 % (0-0); MONOCYTES % (MANUAL) 2 % (0-11.0); MYELOCYTES % 1 % (0-0); NEUTROPHILS % (MANUAL) 90 (42-76)
[2023-12-27 07:56] LABS: PLATELET ESTIMATE DECREASED
[2023-12-27] MEDS: EXEMESTANE 25 MG PO SCH (08:00)
[2023-12-27] MEDS: CLOTRIMAZOLE 1% 15 GM TUBE TP SCH (08:02)
[2023-12-27 14:08] LABS: ABG BASE EXCESS -3.7 mmol/L (-2.0-3.0); ABG OXYGEN SATURATION 93.2 % (94.0-98.0); ABG PCO2 34.9 mmHg (32.0-45.0); ABG PH 7.388 (7.350-7.450); COHb 0.3 % (0.5-1.5); MetHb 0.5 % (0.0-1.5); O2Hb 92.5 % (94.0-97.0); SITE, ABG RIGHT RADIAL
[2023-12-27] MEDS: ENOXAPARIN SODIUM 80 MG/0.8 ML DISP.SYRIN SQ SCH (15:15)
[2023-12-27 15:16] LABS: ABG BASE EXCESS -12.6 mmol/L (-2.0-3.0); ABG OXYGEN SATURATION 83.3 % (94.0-98.0); ABG PCO2 40.2 mmHg (32.0-45.0); ABG PH 7.188 (7.350-7.450); ABG PO2 61.5 mmHg (83.0-108.0); ABG TOTAL HEMOGLOBIN 13.7 G/dL (12.0-16.0); COHb 0.3 % (0.5-1.5); MetHb 0.3 % (0.0-1.5); O2Hb 82.8 % (94.0-97.0); SITE, ABG RIGHT RADIAL
[2023-12-27] MEDS ORDERED: PROPOFOL 100 ML IV PRN ×2 (15:30→16:00)
[2023-12-27 17:14] LABS: ABG BASE EXCESS -18.8 mmol/L (-2.0-3.0); ABG OXYGEN SATURATION 92.6 % (94.0-98.0); ABG PCO2 52.5 mmHg (32.0-45.0); ABG PH 6.997 (7.350-7.450); ABG PO2 96.4 mmHg (83.0-108.0); COHb 0.2 % (0.5-1.5); MetHb 0.4 % (0.0-1.5); PEEP,BG 0 cm H2O; SITE, ABG LEFT RADIAL; VT, ABG 500 mL
[2023-12-27] MEDS: SODIUM BICARBONATE SYR 50 MEQ/50 ML DISP.SYRIN IV ONE ×2 (17:26→19:26)
[2023-12-27] MEDS ORDERED: NOREPINEPHRINE 8 MG in IV D5W 242 ML IV PRN (17:30)
[2023-12-27] MEDS: NOREPINEPHRINE 8 MG in IV D5W 242 ML IV PRN (17:57)
[2023-12-27 18:37] LABS: ABG BASE EXCESS -14.6 mmol/L (-2.0-3.0); ABG OXYGEN SATURATION 94.3 % (94.0-98.0); ABG PCO2 52.5 mmHg (32.0-45.0); ABG PH 7.086 (7.350-7.450); ABG TOTAL HEMOGLOBIN 14.8 G/dL (12.0-16.0); COHb 0.3 % (0.5-1.5); MetHb 0.5 % (0.0-1.5); O2Hb 93.5 % (94.0-97.0); PEEP,BG 0 cm H2O; SITE, ABG LEFT RADIAL; VT, ABG 550 mL
[2023-12-27] MEDS ORDERED: Sodium Bicarbonate 50 MEQ in IV D5W 1,000 ML IV SCH (19:30)
[2023-12-27] MEDS ORDERED: ETOMIDATE 2 MG/ML VIAL IV ONE (19:46)
[2023-12-27] MEDS: Sodium Bicarbonate 150 MEQ in IV D5W 1,000 ML IV SCH (19:47)
[2023-12-27 21:36] LABS: ABG BASE EXCESS -11.9 mmol/L (-2.0-3.0); ABG OXYGEN SATURATION 93.8 % (94.0-98.0); ABG PH 7.141 (7.350-7.450); ABG TOTAL HEMOGLOBIN 15.1 G/dL (12.0-16.0); COHb 0.3 % (0.5-1.5); MetHb 0.5 % (0.0-1.5); SITE, ABG LEFT RADIAL; VT, ABG 575 mL
[2023-12-27 22:06] LABS: INR 1.67 (0.91-1.10); PROTHROMBIN TIME 17.1 SECS (9.2-11.1)
[2023-12-27 23:53] LABS: CALCIUM, SERUM 8.3 mg/dL (8.5-10.1); CREATININE 1.6 mg/dL (0.6-1.3)
[2023-12-28] VITALS (76 sets, daily range): BP systolic 0–151; BP diastolic 0–115; TEMP 96–97.6; O2SAT 76–100
[2023-12-28] MEDS: ONDANSETRON HCL/PF 4 MG/2 ML VIAL IVP PRN (02:17)
[2023-12-28 02:54] LABS: MONOCYTES # (AUTO) 3.5 K/uL (0.1-1.30)
[2023-12-28 02:56] LABS: HEMOGLOBIN 12.9 g/dL (11.5-14.8)
[2023-12-28] MEDS ORDERED: HEPARIN INFUSION/D5W 500 ML IV SCH (03:00)
[2023-12-28 03:02] LABS: BASOPHILS # (AUTO) 0.2 K/uL (0.0-0.2); BASOPHILS % (AUTO) 0.6 % (0.0-2.0); EOSINOPHILS % (AUTO) 0.1 % (0.0-6.0); HEMATOCRIT 41 % (33-45); LYMPHOCYTES # (AUTO) 1.8 K/uL (0.8-4.8); LYMPHOCYTES % (AUTO) 5.1 % (20.0-44.0); MEAN CORPUSCULAR HEMOGLOBIN 30 PG (26.0-33.0); MEAN CORPUSCULAR HGB CONC 32 g/dl (31.0-36.0); MEAN CORPUSCULAR VOLUME 94 fL (82-100); MONOCYTES % (AUTO) 10.3 % (2.0-12.0); NEUTROPHILS # (AUTO) 28.8 K/uL (1.8-8.9); NEUTROPHILS % (AUTO) 83.9 % (43.0-81.0); RED BLOOD CELL COUNT(AUTO) 4.37 MIL/uL (4.0-5.2); RED CELL DISTRIBUTION WIDTH 17.4 % (11.5-15.0)
[2023-12-28 03:09] LABS: PLATELET COUNT (AUTO) 38 K/uL (150-450); WHITE BLOOD COUNT (AUTO) 34.4 K/uL (4.3-11.0)
[2023-12-28] MEDS: PANTOPRAZOLE 40 MG VIAL IV ONE (03:11)
[2023-12-28] MEDS: PANTOPRAZOLE 80 MG in IV NS 0.9% 500 ML IV PRN (03:20)
[2023-12-28 03:42] LABS: BAND % (MANUAL) 2 % (0.0-5.0); EOSINOPHILS % (MANUAL) 1 % (0-4); LYMPHOCYTES % (MANUAL) 6 % (16-48); METAMYELOCYTES % 2 % (0-0); MONOCYTES % (MANUAL) 7 % (0-11.0); NEUTROPHILS % (MANUAL) 82 (42-76)
[2023-12-28 03:43] LABS: PLATELET ESTIMATE DECREASED
[2023-12-28 03:44] LABS: ANISOCYTOSIS 2+
[2023-12-28] MEDS: NOREPINEPHRINE 32 MG in IV NS 0.9% 218 ML IV PRN (05:22)
[2023-12-28] MEDS: NOREPINEPHRINE 4 MG/4 ML AMPUL IV ONE (05:28)
[2023-12-28 06:06] LABS: LACTIC ACID 14.8 mmol/L (0.4-2.0)
[2023-12-28] MEDS: PHENYLEPHRINE 100 MG in IV NS 0.9% 240 ML IV PRN ×2 (07:00→10:00)
[2023-12-28] MEDS ORDERED: DOSE PER PHARMACY VORIconazole/VFEND XX PRN (07:30)
[2023-12-28] MEDS: OCTREOTIDE 1,250 MCG in IV NS 0.9% 247.5 ML IV SCH (08:13)
[2023-12-28] MEDS: DOXYCYCLINE 100 MG in IV D5W 100 ML IV SCH (08:14)
[2023-12-28] MEDS: VASOPRESSIN INJ 40 UNIT in IV NS 0.9% 38 ML IV PRN (08:15)
[2023-12-28] MEDS: OCTREOTIDE 50 MCG in IV NS 0.9% 50 ML IV ONE (08:17)
[2023-12-28 09:02] LABS: ABG BASE EXCESS -18.1 mmol/L (-2.0-3.0); ABG OXYGEN SATURATION 90.9 % (94.0-98.0); ABG PCO2 43.9 mmHg (32.0-45.0); ABG PH 7.051 (7.350-7.450); ABG PO2 82.7 mmHg (83.0-108.0); COHb 0.2 % (0.5-1.5); MetHb 0.3 % (0.0-1.5); O2Hb 90.4 % (94.0-97.0); SITE, ABG LEFT BRACHIAL; VT, ABG 650 mL
[2023-12-28 10:07] LABS: BILIRUBIN,DIRECT 0.9 mg/dL (0.0-0.2); BILIRUBIN,TOTAL 1.8 mg/dL (0.2-1.0)
[2023-12-28 10:12] LABS: LACTIC ACID REFLEX 11.5 mmol/L (0.4-1.9)
[2023-12-28] MEDS: VORICONAZOLE 400 MG in IV D5W 250 ML IV SCH (10:41)
[2023-12-28] MEDS: PANTOPRAZOLE 80 MG in IV NS 0.9% 500 ML IV SCH (12:48)
[2023-12-28 13:42] LABS: INR 3.85 (0.91-1.10); PARTIAL THROMBOPLASTIN TIME 40.8 SEC (24.3-34.3); PROTHROMBIN TIME 37.4 SECS (9.2-11.1)
[2023-12-28 13:49] LABS: D-DIMER 7.43 mg/L(FEU (0.17-0.50)
[2023-12-28 16:54] LABS: APPEARANCE,URINE CLEAR (CLEAR); BILIRUBIN,URINE NEGATIVE (NEGATIVE); BLOOD, URINE 3+ Ery/uL (NEGATIVE); COLOR,URINE YELLOW (YELLOW); KETONES,URINE NEGATIVE (NEGATIVE); LEUKOCYTE ESTERASE ,URINE TRACE (NEGATIVE); NITRITE, URINE NEGATIVE (NEGATIVE); PROTEIN,URINE 1+ mg/dl (NEGATIVE); UGLUCOSE NEGATIVE (NEGATIVE); UROBILINOGEN,URINE 0.2 EU/dL (0.2)
[2023-12-28 17:18] LABS: CREATININE, URINE 43.9 MG/DL (30.0-125.0); URINE TOTAL PROTEIN 206.9 mg/dL (0-11.9)
[2023-12-28] MEDS ORDERED: EPINEPHRINE (1:10,000) SYRINGE 1 MG/10 ML DISP.SYRIN IVP ONE (18:05)
[2023-12-28 18:19] LABS: BACTERIA,URINE Moderate /HPF (None Seen); SQUAMOUS EPITHELIAL CELL,UR Rare /HPF (None Seen)
[2023-12-28 18:20] LABS: ADD URINE CULTURE YES; WBC,URINE 21-50 /HPF (0-3)
[2023-12-28 18:22] LABS: RBC,URINE 0-2 /HPF (0-2)
[2023-12-28 19:24] LABS: EOSINOPHIL,URINE None Seen
[2023-12-29] MEDS ORDERED: VORICONAZOLE 200 MG in IV D5W 250 ML IV SCH (08:00)
== END 2023-12-28 19:42 | DRG 208 ==
LOC: ER 06:35 → ICU 08:31
PROVIDERS: ADMIT Internal Medicine; ATTEND Internal Medicine
PROC: 5A1945Z Respiratory Ventilation, 24-96 Consecutive Hours (ICD-10-PCS; principal; 2023-12-27)
PROC: 0BH17EZ Insertion of Endotracheal Airway into Trachea, Via Natural or Artificial Opening (ICD-10-PCS; 2023-12-27)
PROC: 02HV33Z Insertion of Infusion Device into Superior Vena Cava, Percutaneous Approach (ICD-10-PCS; 2023-12-28)
PROC: B548ZZA Ultrasonography of Superior Vena Cava, Guidance (ICD-10-PCS; 2023-12-28)
PROC: 30233K1 Transfusion of Nonautologous Frozen Plasma into Peripheral Vein, Percutaneous Approach (ICD-10-PCS; 2023-12-28)
PROC: 5A12012 Performance of Cardiac Output, Single, Manual (ICD-10-PCS; 2023-12-28)
DX: J15.69 Pneumonia due to other Gram-negative bacteria (principal); J96.21 Acute and chronic respiratory failure with hypoxia; I21.A1 Myocardial infarction type 2; I50.33 Acute on chronic diastolic (congestive) heart failure; N17.0 Acute kidney failure with tubular necrosis; A41.9 Sepsis, unspecified organism; R65.21 Severe sepsis with septic shock; D65 Disseminated intravascular coagulation [defibrination syndrome]; J94.2 Hemothorax; E87.4 Mixed disorder of acid-base balance; C79.9 Secondary malignant neoplasm of unspecified site; K92.2 Gastrointestinal hemorrhage, unspecified; I11.0 Hypertensive heart disease with heart failure; I48.91 Unspecified atrial fibrillation; C50.919 Malignant neoplasm of unspecified site of unspecified female breast; F41.9 Anxiety disorder, unspecified; Z95.828 Presence of other vascular implants and grafts; Z86.718 Personal history of other venous thrombosis and embolism; D63.8 Anemia in other chronic diseases classified elsewhere; M89.8X9 Other specified disorders of bone, unspecified site; I25.10 Atherosclerotic heart disease of native coronary artery without angina pectoris; Z79.60 Long term (current) use of unspecified immunomodulators and immunosuppressants; R74.01 Elevation of levels of liver transaminase levels; Z79.52 Long term (current) use of systemic steroids; Z20.822 Contact with and (suspected) exposure to COVID-19; Z79.899 Other long term (current) drug therapy
CPT/HCPCS: 31720; 36415; 36600; 71045-TC; 80048-TC; 80053-TC; 80076-TC; 80202-TC; 81001; 82247-TC; 82248-TC; 82378; 82570-TC; 82803-TC; 82962-TC; 83605-TC; 83615-TC; 83735-TC; 83880; 84100-TC; 84300-TC; 84478-TC; 84484-TC; 85025-TC; 85027-TC; 85396; 85610-TC; 85730-TC; 86300; 86850-TC; 87040-TC; 87081-TC; 87086-TC; 87899; 92950-TC; 93970-TC; 94002-TC; 94003-TC; 94762-TC; 94799-TC; A4223; G0378; J0171; J0692; J1171; J1644; J1650; J1940; J2354; J2405; J2470; J2543; J2919; J3370; J3465; J3490; J7030; J7040; J7050; J7060; J7070; P9017; Q9967